=== PATIENT | male | born 1935 | race Caucasian/White ===

== ENCOUNTER 2020-03-18 11:29 | Emergency (ER) | payer MEDICARE, OTHER, SELFPAY ==
[2020-03-18 11:49] VITALS: BP 113/70; PULSE 89; RESP 18; TEMP 36.6; O2SAT 100; BMI 22.4
--- NOTE | 2020-03-18 11:56 | HMH.EDWNDL ---
ED Disposition Clinical Impression: Rash Disposition: Home, Self-Care Condition on Discharge: Good Instructions: DI for Laceration Repair, DI for Rash Prescriptions: hydrOXYzine HCL [Hydroxyzine HCl] 25 mg PO QID 10 Days #30 tab Transmission Status: Pending to [id number] methylPREDNISolone [Medrol 4mg tab] 4 mg PO DIRECTED #21 tab Transmission Status: Pending to [facility] Triamcinolone Acetonide 80 gm TP TID 10 Days #30 cream..g. Transmission Status: Pending to [id number] Referrals: Jake Joiner MD [Primary Care Provider] - - Critical Care Critical Care Time: No Attestation: On 03/18/20, the high probability of a clinically significant, sudden or life threatening deterioration of the following system(s) required my full and direct attention, intervention and personal management. The time I documented below is in addition to time spent performing reported procedures but includes the following listed in this critical care notation. Medical Decision Making - Medical Records Medical records reviewed: Yes: I reviewed the patient's medical records. - Alexx Inquiry Pt receiving controlled substance: No Wound/Laceration HPI - General Chief Complaint: Wound/Laceration Stated Complaint: Rash all over his body Time Seen by Provider: 03/18/20 11:56 Source of Information: Patient - History of Present Illness HPI narrative: A pleasant 84-year-old gentleman presents the emergency department with generalized rash from all over his trunk and extremities. He states this rash may have started his symptoms he started Bumex. He does state that he has a sulfa allergy. He recently discontinued that drug 2 days ago. However he still has a rash and is complaining of excessive pruritus. Patient denies any other acute symptoms. Patient denies any recent fever shakes or chills. Patient did have a valvular replacement 2 weeks ago at [facility].Patient denies any recent cough or shortness of breath, patient denies any sore throat or headache, patient denies any loss of taste or smell, patient denies any malaise or fatigue, patient denies any abdominal pain nausea vomiting or diarrhea. - Related Data Previous Rx's Medication Instructions Recorded cephALEXin [Keflex 500mg Cap] 1,000 mg PO BID 5 Days #20 cap 03/23/19 Triamcinolone Acetonide 80 gm TP TID 10 Days #30 cream..g. 03/18/20 hydrOXYzine HCL [Hydroxyzine HCl] 25 mg PO QID 10 Days #30 tab 03/18/20 methylPREDNISolone [Medrol 4mg 4 mg PO DIRECTED #21 tab 03/18/20 tab] Allergies Allergy/AdvReac Type Severity Reaction Status Date / Time ibuprofen Allergy Verified 03/23/19 08:13 Sulfa (Sulfonamide Allergy Verified 03/23/19 08:13 Antibiotics) [facility] History - Hepatitis A Screen Attestation statement:: This patient has been screened for Hepatitis A risk factors. I have reviewed the patient's past medical history: Yes Medical History: Denies:: Diabetes Mellitus Type 1, Diabetes Mellitus Type 2 - Social History Alcohol Intake: never Occupational Status: retired ROS Obtained: Yes All systems reviewed & no additional complaints - Constitutional Constitutional: Reports system reviewed and no additional complaints, except as docu - Eyes Eyes: Reports system reviewed and no additional complaints, except as docu - ENT Ears, Nose, Mouth, and Throat: Reports system reviewed and no additional complaints, except as docu - Cardiovascular Cardiovascular: Reports system reviewed and no additional complaints, except as docu - Respiratory Respiratory: Yes system reviewed and no additional complaints, except as docu - Gastrointestinal Gastrointestingal: Reports: system reviewed and no additional complaints, except as docu - Genitourinary Male Genitourinary: Reports system reviewed and no additional complaints, except as docu Female Genitourinary: Reports system reviewed and no additional com
[2020-03-18 12:02] VITALS: BP 106/66; PULSE 77; RESP 18; O2SAT 99
[2020-03-18 13:31] VITALS: BP 114/69; PULSE 86; RESP 18; O2SAT 100
[2020-03-18 13:36] VITALS: BP 114/74; PULSE 78; RESP 16; TEMP 36.6; O2SAT 98
== END 2020-03-18 13:38 | disposition home or self-care (01) ==
PROVIDERS: Emergency Provider Family Medicine; PCP Internal Medicine Adolescent Medicine
DX: R21 Rash and other nonspecific skin eruption (principal); Z88.2 Allergy status to sulfonamides; Z95.2 Presence of prosthetic heart valve
CPT/HCPCS: 96372; 96374; 96375; 99282; 99283

== ENCOUNTER → 2020-05-11 07:54 | Outpatient (CLI) | payer MEDICARE, OTHER, SELFPAY ==
[2020-05-11 13:54] LABS: Anion Gap 9.5 mEq/L (5-15); Blood Urea Nitrogen 22 mg/dl (9-20); Carbon Dioxide 30 mmol/L (22.0-30.0); Chloride 103 mmol/L (98-107); Estimated Glomerular Filt Rate 81 ml/min (>60); GFR (African American) 98 ML/MIN (>60); Glucose 94 mg/dl (74-100); Potassium 4.5 mmoL/L (3.5-5.1); Sodium 138 mmol/L (136-145)
[2020-05-11 14:00] LABS: NT Pro Brain Natriuretic Pep. 4580 pg/mL (0-450)
== END ==
PROVIDERS: Visit Provider Internal Medicine
DX: I50.30 Unspecified diastolic (congestive) heart failure (principal)
CPT/HCPCS: 36415; 80048; 83735; 83880

== ENCOUNTER → 2020-06-12 08:08 | Outpatient (CLI) | payer MEDICARE, OTHER, SELFPAY ==
[2020-06-12 14:18] LABS: Chloride 108 mmol/L (98-107); Potassium 4.2 mmoL/L (3.5-5.1); Sodium 142 mmol/L (136-145)
[2020-06-12 14:21] LABS: Anion Gap 11.2 mEq/L (5-15); Blood Urea Nitrogen 19 mg/dl (9-20); Calcium 8.9 mg/dl (8.4-10.2); Carbon Dioxide 27 mmol/L (22.0-30.0); Estimated Glomerular Filt Rate 71 ml/min (>60); GFR (African American) 86 ML/MIN (>60); Glucose 97 mg/dl (74-100)
[2020-06-12 14:28] LABS: NT Pro Brain Natriuretic Pep. 5450 pg/mL (0-450)
== END ==
PROVIDERS: Visit Provider Internal Medicine
DX: I50.20 Unspecified systolic (congestive) heart failure (principal)
CPT/HCPCS: 36415; 80048; 83735; 83880

== ENCOUNTER → 2020-09-04 07:05 | Outpatient (CLI) | payer MEDICARE, OTHER, SELFPAY ==
[2020-09-04 14:02] LABS: Chloride 107 mmol/L (98-107); Sodium 138 mmol/L (136-145)
[2020-09-04 14:04] LABS: Blood Urea Nitrogen 23 mg/dl (9-20)
[2020-09-04 14:05] LABS: Carbon Dioxide 25 mmol/L (22.0-30.0); Estimated Glomerular Filt Rate 71 ml/min (>60); GFR (African American) 86 ML/MIN (>60); Glucose 102 mg/dl (74-100)
[2020-09-04 14:13] LABS: NT Pro Brain Natriuretic Pep. 2070 pg/mL (0-450)
== END ==
PROVIDERS: Visit Provider Internal Medicine
DX: I50.20 Unspecified systolic (congestive) heart failure (principal); I50.30 Unspecified diastolic (congestive) heart failure
CPT/HCPCS: 36415; 80048; 83735; 83880

== ENCOUNTER → 2020-12-04 09:07 | Outpatient (CLI) | payer MEDICARE, OTHER, SELFPAY | PROVIDERS: PCP Internal Medicine Adolescent Medicine; Visit Provider Internal Medicine Adolescent Medicine | DX: Z20.822 Contact with and (suspected) exposure to COVID-19 (principal) | CPT/HCPCS: U0003 ==

== ENCOUNTER → 2021-07-15 08:18 | Outpatient (CLI) | payer MEDICARE, OTHER, SELFPAY ==
[2021-07-15 14:15] LABS: Chloride 105 mmol/L (98-107); Potassium 4.4 mmoL/L (3.5-5.1); Sodium 138 mmol/L (136-145)
[2021-07-15 14:18] LABS: Alanine Aminotransferase 10 U/L (12-78); Albumin Level 3.5 g/dl (3.5-5.0); Albumin/Globulin Ratio 1.2 (1.1-1.8); Alkaline Phosphatase 73 U/L (38-126); Anion Gap 8.4 mEq/L (5-15); Aspartate Amino Transferase 28 U/L (17-59); Bilirubin,Total 0.3 mg/dl (0.2-1.3); Blood Urea Nitrogen 23 mg/dl (9-20); Calcium 8.9 mg/dl (8.4-10.2); Carbon Dioxide 29 mmol/L (22.0-30.0); Estimated Glomerular Filt Rate 80 ml/min (>60); GFR (African American) 97 ML/MIN (>60); Globulin 2.9 g/dL (1.3-3.2); Glucose 113 mg/dl (74-100); Magnesium 1.9 mg/dl (1.6-2.3); Total Protein,Serum 6.4 g/dl (6.3-8.2)
[2021-07-15 14:25] LABS: NT Pro Brain Natriuretic Pep. 485 pg/mL (0-450)
== END ==
PROVIDERS: Visit Provider Internal Medicine
DX: I50.20 Unspecified systolic (congestive) heart failure (principal)
CPT/HCPCS: 36415; 80053; 83735; 83880

== ENCOUNTER 2023-06-24 10:01 | Observation (INO) | payer MEDICARE, SELFPAY ==
[2023-06-24] VITALS (10 sets, daily range): BP systolic 91–120; BP diastolic 50–75; PULSE 71–89; RESP 16–18; TEMP 36.3–36.5; O2SAT 97–100; BMI 25.1
--- NOTE | 2023-06-24 10:17 | XR_ITS ---
FINAL REPORT CLINICAL HISTORY: hand infx/cat bite/scratch posterior swelling COMPARISON: None FINDINGS: RIGHT HAND: 3 views of the right hand were obtained. There is no acute fracture or dislocation. Mild degenerative changes present. Visualized joint spaces are normally aligned. Dorsal soft tissue swelling of the hand is present. IMPRESSION: No acute bony abnormality with dorsal soft tissue swelling of the hand. Reviewed, Interpreted and Dictated by Cameron Noel III, MD Transcribed by Shiloh Calvin Authenticated and [facility]
--- NOTE | 2023-06-24 10:22 | HMH.EDGENADL ---
Discharge Plan Disposition Chief Complaint: Skin/Abscess/Foreign Body Prescriptions Prescriptions: No Action cephalexin 500 MG capsule 1,000 mg PO BID 5 Days Qty: 20 0RF methylprednisolone 4 MG tablet 4 mg PO DIRECTED Qty: 21 0RF Rx Instructions: Take as directed on package instructions triamcinolone acetonide 15 GM cream 80 gm TP TID 10 Days Qty: 30 0RF Rx Instructions: Triamcinolone cream 0.5% hydroxyzine HCl 25 MG tablet 25 mg PO QID 10 Days Qty: 30 2RF Rx Instructions: For itching Referrals Follow up/Referrals: Fatou Armenta [Primary Care Provider] - See instructions Clinical Impressions Clinical Impression: Cellulitis of hand, Cellulitis of forearm, Cat bite, Cat scratch Instructions Patient Instructions: DI for Skin Abscess Discharge ED Provider: Coleen Pratt General Adult HPI General Chief complaint: Skin/Abscess/Foreign Body Stated complaint: swelling R hand Time Seen by Provider: 06/24/23 10:04 History of Present Illness HPI narrative: Patient is a 87-year-old male here with right hand swelling and erythema and pain. States that within the last week he believes that he most likely was bitten and scratched by his cat on the dorsal aspect of his right hand. Over the last few days he has had swelling erythema pain extending up the dorsal aspect of his right hand and arm. His states he had a temperature of 101 orally last night and he had some altered mental status yesterday evening which is since resolved. He has not had any antipyretics today. No fevers or chills today. No other symptoms at the moment. Related Data Previous Rx's Medication Instructions Recorded cephalexin 500 mg capsule 1,000 mg PO BID 5 days #20 caps 03/23/19 hydroxyzine HCl 25 mg tablet 25 mg PO QID 10 days #30 tabs 03/18/20 methylprednisolone 4 mg tablet 4 mg PO DIRECTED #21 tabs 03/18/20 triamcinolone acetonide 0.025 % 80 gm TP TID 10 days ##30 03/18/20 topical cream Allergies Allergy/AdvReac Type Severity Reaction Status Date / Time ibuprofen Allergy Verified 03/23/19 08:13 Sulfa (Sulfonamide Allergy Verified 03/23/19 08:13 Antibiotics) [facility] Disclaimer: The information contained in this section may have been updated after the patient was seen, as this information can be updated by other users. Social History Smoking Status: Former smoker alcohol intake: never current occupational status: other Travel in the last 8 weeks: None ROS Obtained: Yes All systems reviewed & no additional complaints except as documented Physical Exam General General appearance: alert Respiratory Respiratory exam: Present normal lung sounds bilaterally Cardiovascular Cardiovascular exam: Present regular rate Extremities Exam Extremities exam: Present other (The dorsal aspect of the right hand there is erythema swelling and tenderness no fluctuance there is some streaky erythema going up the dorsal aspect of the medial component of the right forearm patient is full range of motion no volar component or involvement) Neurological Exam Neurological exam: Present alert and oriented X3 Medical Decision Making Alexx Inquiry Pt receiving controlled substance: No Vital Signs: 06/24/23 10:02 Temperature 97.3 F L Temperature Source Oral Pulse Rate [Left Radial] 82 Respiratory Rate 16 Blood Pressure [Right Arm] 102/55 L Blood Pressure Mean [Right Arm] 70 Blood Pressure Source [Right Arm] Automatic Cuff Blood Pressure Position [Right Arm] Sitting 02 Sat by Pulse Oximetry 98 Oxygen Delivery Method Room Air Lab Data Lab results reviewed: Yes I reviewed the patient's lab results. Lab Results 06/24/23 10:45: WBC 15.6 H, RBC 3.90 L, Hgb 13.0 L, Hct 38.9 L, MCV 99.6 H, MCH 33.3 H, MCHC 33.4, RDW 13.1, Plt Count 215, MPV 7.6, Neut % (Auto) 80.0, Lymph % (Auto) 9.2 L, [place] % (Auto) 9.3, Eos % (Auto) 0.9, Baso % (Auto) 0.5, Neut # (Auto) 12.5 H
--- NOTE | 2023-06-24 10:48 | PC.NURSE ---
xray at bs
[2023-06-24 11:01] LABS: Basophils # 0.1 K/mm3 (0-0.2); Basophils % 0.5 % (0.1-2.0); Eosinophils # 0.1 K/mm3 (0.0-0.4); Eosinophils % 0.9 % (0.1-12.0); Hematocrit 38.9 % (42.0-52.0); Lymphocytes # 1.4 K/mm3 (0.7-4.5); Lymphocytes % 9.2 % (10-50); Mean Corpuscular HGB Conc 33.4 g/dL (31.8-35.4); Mean Corpuscular Hemoglobin 33.3 pg (27.0-31.2); Mean Corpuscular Volume 99.6 fl (80-94); Mean Platelet Volume 7.6 fl (7.4-10.4); Monocytes # 1.5 K/mm3 (0.1-1.0); Monocytes % 9.3 % (1.7-9.3); Neutrophils # 12.5 K/mm3 (1.8-7.8); Platelet Count 215 K/mm3 (142-424); Red Cell Distribution Width 13.1 % (11.5-17.5); White Blood Count 15.6 K/mm3 (4.8-10.8)
[2023-06-24 11:06] LABS: Alanine Aminotransferase 19 U/L (12-78); Albumin Level 3.9 g/dl (3.5-5.0); Albumin/Globulin Ratio 1.1 (1.1-1.8); Alkaline Phosphatase 63 U/L (38-126); Aspartate Amino Transferase 35 U/L (17-59); Bilirubin,Total 0.7 mg/dl (0.2-1.3); Blood Urea Nitrogen 22 mg/dl (9-20); Calcium 8.8 mg/dl (8.4-10.2); Carbon Dioxide 27 mmol/L (22.0-30.0); Chloride 102 mmol/L (98-107); Creatinine Clearance Estimated 40 mL/min (50-200); Estimated Glomerular Filt Rate 52 ml/min (>60); GFR (African American) 63 ML/MIN (>60); Globulin 3.6 g/dL (1.3-3.2); Glucose 101 mg/dl (74-100); Sodium 136 mmol/L (136-145); Total Protein,Serum 7.5 g/dl (6.3-8.2)
[2023-06-24 11:10] LABS: MANUAL DIFFERENTIAL MANUAL DIFFERENTIAL (MANUAL DIFF)
--- NOTE | 2023-06-24 11:43 | PC.NURSE ---
CARE MANAGEMENT NOTIFIED OF ADMISSION
--- NOTE | 2023-06-24 11:46 | EXP.PHA.CONS ---
Pharmacy Consult Date: 06/24/23 Time: 11:46 Referring provider: DR. CRUZ Reason for Consult:: VANCOMYCIN DOSING Allergies Allergy/AdvReac Type Severity Reaction Status Date / Time ibuprofen Allergy Verified 03/23/19 08:13 Sulfa (Sulfonamide Allergy Verified 03/23/19 08:13 Antibiotics) Home Medications Medication Instructions Recorded Confirmed Type cephalexin 500 mg capsule 1,000 mg PO BID 5 days #20 caps 03/23/19 Rx hydroxyzine HCl 25 mg tablet 25 mg PO QID 10 days #30 tabs 03/18/20 Rx methylprednisolone 4 mg tablet 4 mg PO DIRECTED #21 tabs 03/18/20 Rx triamcinolone acetonide 0.025 % 80 gm TP TID 10 days ##30 03/18/20 Rx topical cream New Prescriptions to Start Prescriptions: Height: 1.65 m Weight: 68.492 kg Laboratory Results:: Laboratory Results - last 24 hr 06/24/23 10:45: WBC 15.6 H, RBC 3.90 L, Hgb 13.0 L, Hct 38.9 L, MCV 99.6 H, MCH 33.3 H, MCHC 33.4, RDW 13.1, Plt Count 215, MPV 7.6, Neut % (Auto) 80.0, Lymph % (Auto) 9.2 L, [place] % (Auto) 9.3, Eos % (Auto) 0.9, Baso % (Auto) 0.5, Neut # (Auto) 12.5 H, Lymph # (Auto) 1.4, [place] # (Auto) 1.5 H, Eos # (Auto) 0.1, Baso # (Auto) 0.1, Sodium 136, Potassium 4.0, Chloride 102, Carbon Dioxide 27, Anion Gap 11.0, BUN 22 H, Creatinine 1.30 H, Estimated Creat Clear 40, Estimated GFR 52 L, Est GFR ( Amer) 63, Glucose 101 H, Calcium 8.8, Total Bilirubin 0.7, AST 35, ALT 19, Alkaline Phosphatase 63, Total Protein 7.5, Albumin 3.9, Globulin 3.6 H, Albumin/Globulin Ratio 1.1 Assessment and Plan Assessment and plan all Dx Assessment and Plan for all problems:: Pharmacokinetic dosing service Objective: Patient: Floor: Age: 87 yo Serum creatinine: 1.3 mg/dL Height: 65.0 Inches Weight (kg): 68.5 Assessment: IBW (kg): 61.50 Dosing wt(kg): 68.5 Estimated Creatinine clearance (ml/min): 35.5 CRCL method: Cockcroft and Gault using ibw(default). Drug selected: Vancomycin Loading dose (mg): 0 Vd (liters): 54.8 (factor used: 0.8 L/kg) Paramjit (hr-1): 0.034 Half life (hrs): 20.39 Recommended dose: 1000 mg Interval: 24 hrs Infusion time (hrs): 2.0 Predicted peak (mcg/mL): 31.6 Predicted trough (mcg/mL): 14.96 Total body weight is being used for vancomycin dosing. Recommendations: Give Vancomycin 1000 mg q 24 hrs with an expected Cpeak of 31.6 mcg/ml and an expected Ctrough of 14.96 mcg/mL. ----Vanco only - ignore for aminoglycosides----- CLvanco= 1.86 L/hr AUC 0-24 /MILADIS Data: MILADIS 0.5 mcg/mL: AUC/MILADIS: 1075.3 MILADIS 1.0 mcg/mL: AUC/MILADIS: 537.6 --------- MILADIS 1.5 mcg/mL: AUC/MILADIS: 358.4 MILADIS 2.0 mcg/mL: AUC/MILADIS: 268.8
--- NOTE | 2023-06-24 12:01 | EXP.HP ---
History of Present Illness *Admission Date: 06/24/23 *Reason for visit:: Chief complaint: Right hand erythema *History of present illness: This is an 87-year-old male that presents to [facility] emergency department with concerns of crescendo right hand erythema since Thursday. He is accompanied by his Vanessa blanton 55 years and she assists with the history. He reports that he was in his usual state of health when his vaccinated cat accidentally scratched the dorsum of his right hand. He irrigated his hand with water, washed it and placed hydrogen peroxide. His reports last night a subjective fever with some confusion. This morning his hand continued to be erythematous, edematous and tender dorsally. They identified streaking up to his mid forearm. He denies palpating axillary or neck adenopathy. He reports taking [id number] medication for his fever. In the ED his CBC identifies a leukocytoses and his creatinine is elevated 1.3 (baseline 0.9). His lactic acid is negative and a hand x-ray identifies no foreign body or gas. Blood cultures were acquired and he was started on broad-spectrum IV antibiotic therapy. 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 History of appendectomy Family History (Updated 06/24/23 @ 14:06 by Tani Cadena MD) Mother Coronary artery disease Heart attack Father Dementia Other Family history of hypertension Social History (Updated 06/24/23 @ 13:14 by Daphne Muro RN) Smoking Status: Former smoker alcohol intake: never current occupational status: retired and other Travel in the last 8 weeks: None Review of Systems Review of Systems Review of systems:: pertinent systems reviewed and negative unless documented below Constitutional Constitutional: Reports chills and Reports fever(s) *Cardiovascular Cardiovascular: Denies chest pain, Denies chest pain at rest, Denies dyspnea, Denies dyspnea on exertion, Denies palpitations and Denies rapid heart rate *Respiratory Respiratory: Denies cough, Denies dyspnea, Denies dyspnea on exertion and Denies pain on inspiration *Gastrointestinal Gastrointestinal: Denies loose stools, Denies nausea and Denies vomiting *Musculoskeletal Musculoskeletal: Denies arthralgias and Denies joint swelling Integumentary/Breasts Skin/Breast: Reports change in pigmentation, Reports erythema, Denies rash and Reports wounds Endocrine Endocrine: Denies palpitations Meds Home Medications and Allergies Home Medications Medication Instructions Recorded Confirmed Type ascorbic acid (vitamin C) 500 mg 500 mg PO HS Supplement 06/24/23 06/24/23 History tablet (Vitamin C) aspirin 81 mg tablet 81 mg PO DAILY HEART HEALTH 06/24/23 06/24/23 History cholecalciferol (vitamin D3) 10 10 mcg PO HS Supplement 06/24/23 06/24/23 History mcg (400 unit) capsule (Vitamin D3) famotidine 20 mg tablet (Pepcid) 20 mg PO DAILY GERD 06/24/23 06/24/23 History loratadine 10 mg tablet (Claritin) 10 mg PO DAILY ALLERGIES 06/24/23 06/24/23 History metoprolol succinate 50 mg 100 mg PO DAILY High Blood Pressure 06/24/23 06/24/23 History tablet,extended release 24 hr multivitamin 1 tab PO DAILY Supplement 06/24/23 06/24/23 History sacubitril 24 mg-valsartan 26 mg 0.5 tab PO BID Heart Failure 06/24/23 06/24/23 History tablet (Entresto) spironolactone 25 mg tablet 12.5 mg PO DAILY Fluid 06/24/23 06/24/23 History New Prescriptions to Start Prescriptions: Allergies Allergy/AdvReac Type Severity Reaction Status Date / Time ibuprofen Allergy Verified 03/23/19 08:13 Sulfa (Sulfonamide Allergy Verified 03/23/19
--- NOTE | 2023-06-24 12:09 | PC.NURSE ---
report called to Daphne MATHEW
[2023-06-24 12:15] LABS: Lymphocytes % 16 % (10-50); Monocytes % 6 % (2-9); Neutrophils % 78 % (42-76); Platelet Estimate Normal; RBC Morphology Normal; Total Cells Counted 100
--- NOTE | 2023-06-24 12:16 | PC.NURSE ---
arrived to floor by w/c from ED
--- NOTE | 2023-06-24 12:24 | P.CONPHA_ITS ---
Pharmacy Intervention Comments: MEDICATION RECONCILIATION COMPLETED ON PATIENT USING EXTERNAL FILL HISTORY FROM PHARMACY AND PHONE CALL TO [facility]. -CHRISTIAN SANTOS, CHRISTOPHERD
--- NOTE | 2023-06-24 12:24 | HMH.PHAINT1 ---
Pharmacy Intervention Comments: MEDICATION RECONCILIATION COMPLETED ON PATIENT USING EXTERNAL FILL HISTORY FROM PHARMACY AND PHONE CALL TO [facility]. -CHRISTIAN SANTOS, CHRISTOPHERD
[2023-06-24 12:38] LABS: Procalcitonin 0.098 ng/mL (0.0-2.0)
[2023-06-24 14:13] LABS: Erythrocyte Sedimentation Rate 31 mm/hr (0-20)
--- NOTE | 2023-06-24 17:49 | PC.NURSE ---
Pt A&O x4. Visiting with son. Denies any discomfort to (R) hand. It remains swollen and erythemic. See pic on chart. Medications administered per mar. Call light within reach.
[2023-06-24 18:16] LABS: POC Glucose,Bedside 94 (70-110)
[2023-06-24 22:04] LABS: POC Glucose,Bedside 88 (70-110)
[2023-06-25] VITALS: BP 127/54; PULSE 97; RESP 20; TEMP 37.1; O2SAT 99
[2023-06-25 04:00] VITALS: BP 98/48; PULSE 90; RESP 20; TEMP 37.1; O2SAT 95; BMI 25.0
[2023-06-25 05:01] LABS: C-Reactive Protein 73.9 mg/L (0-4)
[2023-06-25 06:16] LABS: Basophils # 0.1 K/mm3 (0-0.2); Basophils % 0.9 % (0.1-2.0); Eosinophils # 0.2 K/mm3 (0.0-0.4); Eosinophils % 2.5 % (0.1-12.0); Hematocrit 33.4 % (42.0-52.0); Lymphocytes # 1.6 K/mm3 (0.7-4.5); Lymphocytes % 18.2 % (10-50); Mean Corpuscular HGB Conc 33.4 g/dL (31.8-35.4); Mean Corpuscular Hemoglobin 32.8 pg (27.0-31.2); Mean Corpuscular Volume 98.4 fl (80-94); Mean Platelet Volume 7.6 fl (7.4-10.4); Monocytes # 0.9 K/mm3 (0.1-1.0); Monocytes % 10.8 % (1.7-9.3); Neutrophils # 5.8 K/mm3 (1.8-7.8); Neutrophils % 67.5 % (37.0-80.0); Platelet Count 193 K/mm3 (142-424); Red Blood Count 3.39 M/mm3 (4.60-6.20); Red Cell Distribution Width 12.9 % (11.5-17.5); White Blood Count 8.6 K/mm3 (4.8-10.8)
[2023-06-25 06:19] LABS: Hemoglobin 11.1 g/dL (14.1-18.0)
[2023-06-25 06:21] LABS: Chloride 109 mmol/L (98-107); Sodium 137 mmol/L (136-145)
[2023-06-25 06:22] LABS: Potassium 3.8 mmoL/L (3.5-5.1)
[2023-06-25 06:25] LABS: Anion Gap 8.8 mEq/L (5-15); Blood Urea Nitrogen 18 mg/dl (9-20); Calcium 7.7 mg/dl (8.4-10.2); Carbon Dioxide 23 mmol/L (22.0-30.0); Creatinine Clearance Estimated 47 mL/min (50-200); Estimated Glomerular Filt Rate 63 ml/min (>60); GFR (African American) 77 ML/MIN (>60); Glucose 82 mg/dl (74-100)
--- NOTE | 2023-06-25 07:43 | PC.NURSE ---
rounded on pt, updated pts whiteboard, no needs at this time
[2023-06-25 08:00] VITALS: BP 96/53; PULSE 87; RESP 19; TEMP 36.4; O2SAT 99
[2023-06-25 08:07] LABS: Vitamin B12 318 pg/mL (239-931)
--- NOTE | 2023-06-25 09:08 | EXP.DC.SUM ---
General Admission date:: 06/24/23 Discharge date: 06/25/23 HPI HPI HPI: This is an 87-year-old male that presents to [facility] emergency department with concerns of crescendo right hand erythema since Thursday. He is accompanied by his Vanessa blanton 55 years and she assists with the history. He reports that he was in his usual state of health when his vaccinated cat accidentally scratched the dorsum of his right hand. He irrigated his hand with water, washed it and placed hydrogen peroxide. His reports last night a subjective fever with some confusion. This morning his hand continued to be erythematous, edematous and tender dorsally. They identified streaking up to his mid forearm. He denies palpating axillary or neck adenopathy. He reports taking [id number] medication for his fever. In the ED his CBC identifies a leukocytoses and his creatinine is elevated 1.3 (baseline 0.9). His lactic acid is negative and a hand x-ray identifies no foreign body or gas. Blood cultures were acquired and he was started on broad-spectrum IV antibiotic therapy. Hospital Course Hospital Course Hospital Course: The patient was admitted to the medical surgical floor with IV fluid resuscitation. Blood cultures were acquired that identified no growth to date. Labs and inflammatory markers were trended and identified resolved leukocytoses. His creatinine improved with fluid resuscitation. He tolerated his IV antibiotic therapy and noted improved erythema of his right hand as well as improved edema. With his improvement and inquired about discharge home. We recommended discharge home on p.o. antibiotics with close PCP follow-up. We have recommended a 1 week follow-up with his PCP to discuss his right hand cat scratch, edema and erythema. I spent 35 minutes in [id number] time with the patient and nursing staff concerning the discharge process. We discussed the admitting diagnoses and hospital course. We discussed identified improvement and the patient's desire to be discharged. We reviewed inpatient studies and imaging. The patient voiced understanding on the importance of follow-up with his primary care provider. The patient plans to be compliant with the medication regimen prescribed and follow-up appointments. He understands that he can return to the emergency department with any sudden changes or concerns. Exam Data for Last 24 hours Vital signs and Labs for Last 24 Hours: Temp Pulse Resp BP Pulse Ox O2 Del Method 97.6 F 87 19 96/53 L 99 Room Air 06/25/23 08:00 06/25/23 08:00 06/25/23 08:00 06/25/23 08:00 06/25/23 08:00 06/25/23 08:00 Laboratory Results - last 24 hr 06/24/23 10:45: WBC 15.6 H, RBC 3.90 L, Hgb 13.0 L, Hct 38.9 L, MCV 99.6 H, MCH 33.3 H, MCHC 33.4, RDW 13.1, Plt Count 215, MPV 7.6, Neut % (Auto) 80.0, Lymph % (Auto) 9.2 L, [place] % (Auto) 9.3, Eos % (Auto) 0.9, Baso % (Auto) 0.5, Neut # (Auto) 12.5 H, Lymph # (Auto) 1.4, [place] # (Auto) 1.5 H, Eos # (Auto) 0.1, Baso # (Auto) 0.1, Total Counted 100, Neutrophils % (Manual) 78 H, Lymphocytes % (Manual) 16, Monocytes % (Manual) 6, Platelet Estimate Normal, RBC Morphology Normal, ESR 31 H, Sodium 136, Potassium 4.0, Chloride 102, Carbon Dioxide 27, Anion Gap 11.0, BUN 22 H, Creatinine 1.30 H, Estimated Creat Clear 40, Estimated GFR 52 L, Est GFR ( Amer) 63, Glucose 101 H, Lactate 1.0, Calcium 8.8, Total Bilirubin 0.7, AST 35, ALT 19, Alkaline Phosphatase 63, C-Reactive Protein 73.9 H, Total Protein 7.5, Albumin 3.9, Globulin 3.6 H, Albumin/Globulin Ratio 1.1, Procalcitonin 0.098 06/24/23 17:58: POC Glucose 94 06/24/23 21:57: POC Glucose 88 06/25/23 05:49: WBC 8.6 D, RBC 3.39 L, Hgb 11.1 L D, Hct 33.4 L, MCV 98.4 H, MCH 32.8 H, MCHC 33.4, RDW 12.9, Plt Count 193, MPV 7.6, Neut % (Auto) 67.5, Lymph % (Auto) 18.2, [place] % (Auto) 10.8 H, Eos % (Auto) 2.5, Baso % (Auto) 0.9, Neut # (Auto) 5.8, Lymph # (Auto) 1.6, [place] # (Auto) 0.9, Eos # (Auto) 0.2, Baso #
[2023-06-25 09:33] VITALS: PULSE 77; RESP 18
--- NOTE | 2023-06-30 13:39 | CARE MANAGER ---
Contacted patient related to hospital discharge. He states he is feeling much better. 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 Denies questions or concerns. QUINCY Ortega
== END 2023-06-25 10:40 | disposition home or self-care (01) ==
LOC: ER 11:49 → 2ND 11:54
PROVIDERS: Admitting Provider Family Medicine; Emergency Provider Student in an Organized Health Care Education/Training Program; PCP Nurse Practitioner Family; Visit Provider Family Medicine
DX: L03.113 Cellulitis of right upper limb (principal); W55.03XA Scratched by cat, initial encounter; N17.9 Acute kidney failure, unspecified; I50.32 Chronic diastolic (congestive) heart failure; I11.0 Hypertensive heart disease with heart failure; Z79.899 Other long term (current) drug therapy
CPT/HCPCS: 36415; 73130; 80048; 80053; 82607; 82962; 83605; 84145; 85007; 85025; 85651; 86140; 87040; 87070; 87205; 99285; G0378; J0456; J3370

== ENCOUNTER 2024-04-28 08:51 | Emergency (ER) | payer MEDICARE, SELFPAY ==
[2024-04-28] VITALS (8 sets, daily range): BP systolic 106–127; BP diastolic 56–75; PULSE 57–95; RESP 12–20; TEMP 36.7; O2SAT 96–99; BMI 23.4
--- NOTE | 2024-04-28 09:06 | XR_ITS ---
FINAL REPORT CLINICAL HISTORY: weakness COMPARISON: 04/12/2024 FINDINGS: SINGLE-VIEW CHEST There is cardiomegaly. Left subclavian ICD is present. The mediastinum is normal. Note is made of moderate scarring. There are mild bibasilar opacities, favor atelectasis over pneumonia. There is no pneumothorax. IMPRESSION: Favor bibasilar atelectasis over pneumonia. Reviewed, Interpreted and Dictated by Cameron Noel III, MD Transcribed by Angie Cedillo Authenticated and [facility]
--- NOTE | 2024-04-28 09:08 | ECG_ITS ---
APPROVED REPORT Exam: Resting ECG HR:94 bpm ECG Measurements Heart Rate 94 AXES UT 198 P 20 QRSd 153 QRS 91 QT 373 T 25 QTc 425 Conclusion SINUS RHYTHM RIGHT BUNDLE BRANCH BLOCK [120+ ms QRS DURATION, UPRIGHT V1, 40+ ms S IN I/aVL/V4/V5/V6] ABNORMAL ECG Electronically signed by : DANISHA OWEN, 04/28/2024 15:50:34
--- NOTE | 2024-04-28 09:09 | ED_ITS ---
Discharge Plan Disposition Patient Disposition: Home, Self-Care Prescriptions Prescriptions: No Action metoprolol succinate 50 mg tablet extended release 24 hr 100 mg PO DAILY spironolactone 25 mg tablet 12.5 mg PO DAILY Entresto 24-26 mg tablet 0.5 tab PO BID multivitamin Tablet 1 tab PO DAILY ascorbic acid (vitamin C) [Vitamin C] 500 mg Tablet 500 mg PO HS aspirin 81 mg Tablet 81 mg PO DAILY loratadine [Claritin] 10 mg Tablet 10 mg PO DAILY cholecalciferol (vitamin D3) [Vitamin D3] 10 mcg (400 unit) Capsule 10 mcg PO HS famotidine [Pepcid] 20 mg Tablet 20 mg PO DAILY amoxicillin-pot clavulanate 875-125 mg tablet 1 tab PO BID Qty: 14 0RF azithromycin 250 mg tablet 250 mg PO DAILY 4 Days Qty: 4 0RF Referrals Follow up/Referrals: Fatou Armenta [Primary Care Provider] - See instructions Edwardo Kirk MD [Staff Physician] - See instructions (Sterile pyuria with RBCs, diffuse, symmetric bladder wall thickening on CT) Activity Restrictions/Add. Instructions Additional Instructions/Restrictions: You were evaluated in the ER and are appropriate for discharge at this time. Continue taking home medications as previously prescribed. Please increase the amount of water and clear liquids that you are drinking. Continue using boost shakes and other nutritional supplements as you regain weight. Follow-up with your primary care physician in a few days. Follow-up with your electrotype servicer intermittent sinus arrhythmia. Also follow-up with urology to reevaluate your bladder, call them for an appointment. Return to the ER with new, worsening, or otherwise concerning symptoms Clinical Impressions Clinical Impression: Generalized weakness, Pyuria Print Language Print Language: Albanian Discharge ED Provider: Shireen Ledesma General Adult HPI General Chief complaint: Weakness Stated complaint: weakness, low bp Time Seen by Provider: 04/28/24 08:53 Mode of Arrival: Ambulatory Source of Information: Patient and Spouse Limitations: No Limitations Description of Symptoms (Recalled from ER Triage Doc. by RN): states that the patient has lost 10 pounds in two weeks and has been weak. States that his blood pressures have been low at home. History of Present Illness HPI narrative: 88-year-old male presents to the ER at the direction of his was concerned patient has been diffusely weak, poor appetite, losing weight. Patient was started on a new medication, trazodone. He had a diffuse rash and ended up requiring steroids. The rash is improving, however since the time of these changes in medications, patient has had reportedly decreased appetite and his weight fell from 151 pounds to 141 pounds. Patient reports to me that his appetite is improving but is adamant that it is not. Patient did eat breakfast this morning. Reportedly has been taking the patient back and forth to the primary care physician frequently over the last 2 weeks because she has been worried about low blood pressures on home wrist and bicep cuff as well as heart rates around 100-110. She reports that when they get to the doctor's office his heart rate and blood pressure are always fine. On discussion, they are using 2 different devices to check his blood pressures and has been worried about his bottom number, she cannot recall the top numbers. Patient states he is feeling improved compared to what he did over the last 2 weeks, his appetite is improving, and he believes his weakness is improving. He does not have other concerns at this time. Review of systems is negative for fever, chills, chest pain, shortness of breath, abdominal pain, vomiting, diarrhea, dysuria, hematuria. Daughter presented to bedside later in the encounter, she stated patient did recently have a GI illness, she also reports that patient is not great about drinking clear liquids and previously has gotten IV fluids for mild dehydration. Related Data Home Medications ?Medication ?Instructions ?Recorded ?Confirmed ascorbic acid (vitamin C) 500 mg 500 mg PO HS Supplement 06/24/23 06/24/23 tablet (Vitamin C) aspirin 81 mg tablet 81 mg PO DAILY HEART HEALTH 06/24/23 06/24/23 cholecalciferol (vitamin D3) 10 10 mcg PO HS Supplement 06/24/23 06/24/23 mcg (400 unit) capsule (Vitamin D3) famotidine 20 mg tablet (Pepcid) 20 mg PO DAILY GERD 06/24/23 06/24/23 loratadine 10 mg tablet (Claritin) 10 mg PO DAILY ALLERGIES 06/24/23 06/24/23 metoprolol succinate 50 mg 100 mg PO DAILY High Blood Pressure 06/24/23 06/24/23 tablet,extended release 24 hr multivitamin 1 tab PO DAILY Supplement 06/24/23 06/24/23 sacubitril 24 mg-valsartan 26 mg 0.5 tab PO BID Heart Failure 06/24/23 06/24/23 tablet (Entresto) spironolactone 25 mg tablet 12.5 mg PO DAILY Fluid 06/24/23 06/24/23 Previous Rx's ?Medication ?Instructions ?Recorded amoxicillin 875 mg-potassium 1 tab PO BID #14 tabs 06/25/23 clavulanate 125 mg tablet azithromycin 250 mg tablet 250 mg PO DAILY 4 days #4 tabs 06/25/23 Allergies Allergy/AdvReac Type Severity Reaction Status Date / Time ibuprofen Allergy Verified 04/28/24 09:10 Sulfa (Sulfonamide Allergy Verified 04/28/24 09:10 Antibiotics) [facility] Disclaimer: The information contained in this section may have been updated after the patient was seen, as this information can be updated by other users. 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 History of appendectomy Amputation finger Family History (Updated 06/24/23 @ 14:06 by Tani Cadena MD) Mother Coronary artery disease Heart attack Father Dementia Other Family history of hypertension Social History (Updated 06/24/23 @ 13:14 by Daphne Muro RN) Smoking Status: Never smoker alcohol intake: never current occupational status: retired and other Travel in the last 8 weeks: None ROS Obtained: Yes All systems reviewed & no additional complaints except as documented Per HPI Physical Exam General General appearance: alert and in no apparent distress Head Head exam: atraumatic and normocephalic Eye Eye exam: Present PERRL and EOMI ENT ENT exam: Present mucous membranes moist Neck Neck exam: Present normal inspection and full ROM Chest Chest inspection: Present symmetric chest wall rise Respiratory Respiratory exam: Present normal lung sounds bilaterally; Absent respiratory distress, wheezes or stridor Cardiovascular Cardiovascular exam: Present regular rate and normal rhythm Abdominal Exam Abdominal exam: Present soft; Absent distention or tenderness Extremities Exam Extremities exam: Present full ROM; Absent tenderness or edema Neurological Exam Neurological exam: Present alert, oriented X3, CN II-XII intact and normal gait; Absent motor sensory deficit (5/5 strength in all extremities, no sensory deficits) Psychiatric Psychiatric exam: Present normal affect and normal mood Skin Skin exam: Present warm and dry Medical Decision Making Medical Records Medical records reviewed: Yes I reviewed the patient's medical records. MR Comment: Labs from patient's visit in 2022 were reviewed demonstrating mild anemia, mild hypocalcemia Alexx Inquiry Pt receiving controlled substance: No Vital Signs: 04/28/24 08:52 04/28/24 09:00 04/28/24 09:23 Temperature 98.1 F Temperature Source Oral Pulse Rate 95 H 82 Pulse Rate [Radial] 94 H Respiratory Rate 16 18 Blood Pressure 106/66 L 122/65 Blood Pressure [Right Arm] 118/65 Blood Pressure Mean [Right Arm] 82 Blood Pressure Source [Right Arm] Automatic Cuff Blood Pressure Position [Right Arm] Sitting 02 Sat by Pulse Oximetry 98 99 97 Oxygen Delivery Method Room Air Room Air Room Air 04/28/24 10:00 04/28/24 10:37 04/28/24 11:00 Temperature Temperature Source Pulse Rate 90 92 H 71 Pulse Rate [Radial] Respiratory Rate 20 17 12 Blood Pressure 118/75 127/74 122/56 L Blood Pressure [Right Arm] Blood Pressure Mean [Right Arm] Blood Pressure Source [Right Arm] Blood Pressure Position [Right Arm] 02 Sat by Pulse Oximetry 98 98 96 Oxygen Delivery Method Room Air Room Air Room Air Lab Data Lab Results 04/28/24 09:05: WBC 12.3 H, RBC 3.98 L, Hgb 12.9 L, Hct 41.3 L, MCV 103.6 H, MCH 32.3 H, MCHC 31.2 L, RDW 14.1, Plt Count 265, MPV 7.6, Neut % (Auto) 72.7, Lymph % (Auto) 12.9, [place] % (Auto) 11.3 H, Eos % (Auto) 2.1, Baso % (Auto) 1.0, Neut # (Auto) 9.0 H, Lymph # (Auto) 1.6, [place] # (Auto) 1.4 H, Eos # (Auto) 0.3, Baso # (Auto) 0.1, PT 10.9, INR 0.97, Sodium 136, Potassium 4.5, Chloride 106, Carbon Dioxide 28, Anion Gap 6.5, BUN 39 H, Creatinine 1.40 H, Estimated Creat Clear 34, Estimated GFR 48 L, Est GFR ( Amer) 58 L, Glucose 78, Calcium 8.4, Magnesium 1.9, Total Bilirubin 0.5, AST 31, ALT 27, Alkaline Phosphatase 47, Troponin I < 0.01, Total Protein 6.5, Albumin 3.5, Globulin 3.0, Albumin/Globulin Ratio 1.2 04/28/24 09:12: Urine Color Yellow, Urine Appearance Clear, Urine pH 7.0, Ur Specific [place] 1.020, Urine Protein Trace, Urine Glucose (UA) Negative, Urine Ketones Negative, Urine Blood Negative, Urine Nitrate Negative, Urine Bilirubin Negative, Urine Urobilinogen 0.2, Ur Leukocyte Esterase 1+ A, Urine RBC 3-5, Urine WBC 20-50, Ur Squamous Epith Cells None, Urine Bacteria None 04/28/24 09:05 04/28/24 09:05 Orders (Tests/Meds): ED MEDICATIONS Discontinued Medications Generic Name Dose Route Start Last Admin Trade Name Morena PRN Reason Stop Dose Admin Lactated Ringer's 1,000 mls @ 999 mls/hr 04/28/24 09:47 04/28/24 09:52 Lactated Ringer's 1000 Ml Bag IV 04/28/24 10:47 999 mls/hr .Q1H1M ONE Administration Iopamidol 75 ml 04/28/24 10:24 04/28/24 10:25 Iopamidol-370 (76%);100ml Bottle IV 04/28/24 10:25 75 ml ONCE ONE Administration Sodium Chloride 10 ml 04/28/24 10:24 04/28/24 10:25 Sodium Chloride 0.9% 10ml Syr (Rad Only) IV 04/28/24 10:25 10 ml ONCE ONE Administration ORDERS Category Date Time Status CT abdomen pelvis w con Stat Cat Scan 04/28/24 10:09 Completed CXR --portable [XR chest portable] Stat Exams 04/28/24 09:06 Completed CBC w/Auto Diff [Complete Blood Count Auto Diff] Stat Lab 04/28/24 09:05 Completed CMP [Comprehensive Metabolic Panel] Stat Lab 04/28/24 09:05 Completed Magnesium Stat Lab 04/28/24 09:05 Completed PT INR [Prothrombin Time INR] Stat Lab 04/28/24 09:05 Completed Trop I [Troponin I] Stat Lab 04/28/24 09:05 Completed Troponin I Q3H Lab 04/28/24 12:15 Ordered Troponin I Q3H Lab 04/28/24 15:15 Ordered Urinalysis and Microscopic Stat Lab 04/28/24 09:12 Completed Urine Culture Stat Micro 04/28/24 09:12 Received ECG Request Stat Y 04/28/24 09:06 Ordered Medical Decision Narrative: In summary, this 88-year-old male presents to the emergency department today with his who is concerned about diffuse weakness, low blood pressures, weight loss. On initial evaluation patient is hemodynamically stable, afebrile, normotensive, GCS 15, no focal neurologic deficits, well-appearing on exam, cardiopulmonary exam is benign, abdomen is soft, nontender, nondistended. Weight in the ER is up 4 pounds from what was reported to be his previous weight. Differential diagnosis includes but is not limited to medication side effect, electrolyte abnormality, urinary tract infection, cardiac dysfunction, I considered the possibility of malignancy however patient does not have any complaints that would help me identify a source of this especially with his improving weight recently. I have high suspicion for recent medication side effects as well as inappropriate medical equipment use at home contributing to patient's visit today, however workup will be performed to evaluate for the above pathology. Based on these concerns, I ordered cardiac workup, serum labs, urine studies. ECG personally interpreted demonstrates normal sinus rhythm, rate 94, right bundle branch block, normal TX and QTc, no STEMI. Labs personally reviewed demonstrate mild leukocytosis, nonspecific, anemia improved from previous, PT/INR normal, patient does have prerenal azotemia with slightly decreased kidney function, creatinine 1.40, compared to previous this does not represent FRANTZ. Initial troponin undetectably low at less than 0.01, UA demonstrates findings of WBCs but no bacteria or nitrates. Sterile pyuria. Few RBCs present. The findings of sterile pyuria with few RBCs does make me concerned for possible malignancy though this could simply be inflammatory. Patient does not have symptoms consistent with prostatitis though this was also considered. CT abdomen pelvis ordered for further evaluation of potential urologic pathology. XR personally interpreted demonstrates no acute intrathoracic abnormality, AICD present. See radiology read which does mention findings consistent with bibasilar atelectasis, patient does not have clinical correlation for pneumonia. While patient was being monitored in the ER, he had occasional dropped beats. He does not feel these, he does not describe palpitations, chest pain, dizziness, or other associated symptoms. His blood pressure remains stable and he continues to be well-perfused and oriented. Repeat ECG was ordered to capture these on a twelve-lead to evaluate the etiology. Repeat ECG personally interpreted demonstrates sinus rhythm with sinus arrhythmia, rate 76, right bundle branch block, no STEMI, no dynamic changes CT imaging personally interpreted demonstrates diffuse thickening of the bladder wall. Radiology read is in agreement mentioning this is likely inflammatory. On reassessment patient continues to be stable. Normotensive, no changes on the monitor. He has received IV fluids and at this time I believe is appropriate for discharge. I provided a referral to urology for pyuria and few RBCs for further evaluation. I gave instructions for symptomatic management, follow-up, and return precautions for the ER. Patient and family indicated understanding, patient was discharged in stable condition. Critical Care Critical Care Time Critical Care Time: No
[2024-04-28 09:15] LABS: Basophils # 0.1 K/mm3 (0-0.2); Eosinophils # 0.3 K/mm3 (0.0-0.4); Eosinophils % 2.1 % (0.1-12.0); Hematocrit 41.3 % (42.0-52.0); Hemoglobin 12.9 g/dL (14.1-18.0); Lymphocytes # 1.6 K/mm3 (0.7-4.5); Lymphocytes % 12.9 % (10-50); Mean Corpuscular HGB Conc 31.2 g/dL (31.8-35.4); Mean Corpuscular Hemoglobin 32.3 pg (27.0-31.2); Mean Corpuscular Volume 103.6 fl (80-94); Mean Platelet Volume 7.6 fl (7.4-10.4); Monocytes # 1.4 K/mm3 (0.1-1.0); Monocytes % 11.3 % (1.7-9.3); Neutrophils % 72.7 % (37.0-80.0); Platelet Count 265 K/mm3 (142-424); Red Blood Count 3.98 M/mm3 (4.60-6.20); Red Cell Distribution Width 14.1 % (11.5-17.5); White Blood Count 12.3 K/mm3 (4.8-10.8)
[2024-04-28 09:19] LABS: Microscopic, Urine URINE MICROSCOPIC (MICROSCOPIC)
[2024-04-28 09:23] LABS: INR 0.97 (0.9-1.1); Prothrombin Time 10.9 seconds (10.1-12.5)
[2024-04-28 09:27] LABS: Albumin Level 3.5 g/dl (3.5-5.0); Chloride 106 mmol/L (98-107); Potassium 4.5 mmoL/L (3.5-5.1); Sodium 136 mmol/L (136-145)
[2024-04-28 09:27] LABS: Appearance,Urine CLEAR (Clear); Bilirubin,Urine Negative (Negative); Blood, Urine Negative (Negative); Color,Urine YELLOW (Yellow); Glucose,Urine (UA) Negative (Negative); Ketones,Urine Negative (Negative); Leukocyte Esterase,Urine 1+ (Negative); Nitrate,Urine Negative (Negative); Protein,Urine TRACE (Negative); Urobilinogen,Urine 0.2 EU/dl (0.2)
[2024-04-28 09:29] LABS: Alanine Aminotransferase 27 U/L (12-78); Aspartate Amino Transferase 31 U/L (17-59); Blood Urea Nitrogen 39 mg/dl (9-20); Creatinine Clearance Estimated 34 mL/min (50-200); Estimated Glomerular Filt Rate 48 ml/min (>60); GFR (African American) 58 ML/MIN (>60)
[2024-04-28 09:30] LABS: Albumin/Globulin Ratio 1.2 (1.1-1.8); Alkaline Phosphatase 47 U/L (38-126); Anion Gap 6.5 mEq/L (5-15); Bilirubin,Total 0.5 mg/dl (0.2-1.3); Calcium 8.4 mg/dl (8.4-10.2); Carbon Dioxide 28 mmol/L (22.0-30.0); Glucose 78 mg/dl (74-100); Magnesium 1.9 mg/dl (1.6-2.3); Total Protein,Serum 6.5 g/dl (6.3-8.2)
[2024-04-28 09:44] LABS: Troponin I < 0.01 ng/ml (0.00-0.034)
--- NOTE | 2024-04-28 09:48 | PC.NURSE ---
DR OWEN AT BEDSIDE TO UPDATE PT AND FAMILY
[2024-04-28] MEDS: LACTATED RINGERS 1000ML 1,000 ML 999 ML IV (09:52)
[2024-04-28 09:54] LABS: WBC,Urine 20-50 #/hpf (0-3)
--- NOTE | 2024-04-28 10:01 | ECG_ITS ---
APPROVED REPORT Exam: Resting ECG HR:76 bpm ECG Measurements Heart Rate 76 AXES QRSd 146 QRS 90 QT 381 T 31 QTc 412 Conclusion Sinus rhythm with sinus arrhythmia RIGHT BUNDLE BRANCH BLOCK [120+ ms QRS DURATION, UPRIGHT V1, 40+ ms S IN I/aVL/V4/V5/V6] ABNORMAL ECG Electronically signed by : DANISHA OWEN, 04/28/2024 15:51:33
--- NOTE | 2024-04-28 10:09 | CT_ITS ---
FINAL REPORT CLINICAL HISTORY: sterile pyruia, generalized malaise COMPARISON: None FINDINGS: CT OF THE ABDOMEN AND PELVIS WITH CONTRAST Axial CT images of the abdomen and pelvis were obtained after the administration of IV contrast. Coronal and sagittal reformatted images were also obtained and reviewed. This study was performed with techniques to keep radiation doses as low as reasonably achievable (ALARA). Individualized dose reduction techniques using automated exposure control or adjustment of mA and/or kV according to the patient's size were employed. Abdomen: There is moderate scarring and/or fibrosis present in the lung bases bilaterally.. The heart is normal in size. The liver has an unremarkable appearance, without evidence of mass or biliary ductal dilatation. There is mild nonspecific gallbladder wall thickening present. The spleen is unremarkable. No adrenal mass is present. The pancreas has an unremarkable appearance. Several bilateral small renal cysts are present. No evidence of mass or hydronephrosis is seen. The aorta is normal in caliber. Moderate vascular calcifications are present. There is no free fluid or adenopathy. No mass or abnormal fluid collection is seen. Pelvis: The appendix is not well-visualized. The urinary bladder is remarkable for moderate bladder wall thickening, likely inflammatory. There is a left inguinal hernia with multiple nonobstructing loops of bowel, but no evidence of obstruction. The left hernia sac measures up to 8.3 cm in transverse diameter. There is a small right inguinal hernia containing fat. No inflammatory process is seen. There is no evidence of mass or adenopathy. There is no evidence of bowel obstruction. IMPRESSION: No evidence of acute intra-abdominal process. Left inguinal hernia contains a hernia sac with multiple nonobstructed bowel loops, measuring up to 8.3 cm in transverse diameter. Moderate bladder wall thickening, likely inflammatory. Reviewed, Interpreted and Dictated by Cameron Noel III, MD Transcribed by Shiloh Calvin Authenticated and [facility]
[2024-04-28] MEDS: IOPAMIDOL-370 (76%);100ML BOTTLE 75 ML IV (10:25)
[2024-04-28] MEDS: SODIUM CHLORIDE 0.9% 10ML SYR (RAD ONLY) 10 ML IV (10:25)
--- NOTE | 2024-04-28 11:00 | PC.NURSE ---
PT ASSISTED TO AND FROM [facility]
--- NOTE | 2024-04-28 11:39 | PC.NURSE ---
Dr. Ledesma at BS to update pt on POC
== END 2024-04-28 11:52 | disposition home or self-care (01) ==
PROVIDERS: Emergency Provider Emergency Medicine; PCP Nurse Practitioner Family
DX: R82.81 Pyuria (principal); R53.1 Weakness; I45.10 Unspecified right bundle-branch block; I49.9 Cardiac arrhythmia, unspecified; I11.0 Hypertensive heart disease with heart failure; Z95.810 Presence of automatic (implantable) cardiac defibrillator; I50.32 Chronic diastolic (congestive) heart failure
CPT/HCPCS: 71045; 74177; 80053; 81001; 83735; 84484; 85025; 85610; 87086; 93005; 96360; 99285; J7120; Q9967

== ENCOUNTER 2024-05-09 13:50 | Outpatient (CLI) | payer MEDICARE, SELFPAY ==
[2024-05-09 15:31] LABS: Microscopic, Urine URINE MICROSCOPIC (MICROSCOPIC)
[2024-05-09 16:04] LABS: Appearance,Urine CLEAR (Clear); Blood, Urine Negative (Negative); Color,Urine YELLOW (Yellow); Glucose,Urine (UA) Negative (Negative); Ketones,Urine 1+ (Negative); Leukocyte Esterase,Urine 1+ (Negative); Nitrate,Urine Negative (Negative); Protein,Urine 1+ (Negative); Specific Gravity, Urine >= 1.030 (1.005-1.030); Urobilinogen,Urine 0.2 EU/dl (0.2)
[2024-05-09 16:05] LABS: Bilirubin,Urine 1+ (Negative)
[2024-05-09 16:52] LABS: WBC,Urine 20-50 #/hpf (0-3)
[2024-05-09 16:53] LABS: Bacteria,Urine Trace /lpf
== END 2024-05-09 23:59 | disposition home or self-care (01) ==
LOC: LAB.DROPOF 05-10 09:56
PROVIDERS: PCP Urology; Visit Provider Urology
DX: N39.0 Urinary tract infection, site not specified (principal); N32.89 Other specified disorders of bladder
CPT/HCPCS: 81001; 87086

== ENCOUNTER 2024-07-01 10:56 | Day surgery (SDC) | payer MEDICARE, SELFPAY ==
[2024-06-29 14:47] VITALS: BMI 23.2
[2024-07-01 11:21] VITALS: BMI 23.2
[2024-07-01 11:32] VITALS: BP 135/62; PULSE 63; RESP 18; TEMP 36.5; O2SAT 98
--- NOTE | 2024-07-01 11:49 | [facility].PROCNOTE ---
[facility] Procedure Note Date: 07/01/24 Time: 11:50 Procedure Note:: Chart review: The patient was earlier in the emergency room where pyuria was noted. The urine culture returned negative. He had a CT scan showing thickness of the bladder and cystoscopy was suggested. Preop diagnosis: Thickened bladder wall Postop diagnosis: Thick bladder wall/trabeculation Operative note: The patient was brought to the cystoscopy suite he was prepped and draped in the usual fashion. He underwent flexible cystoscopy. The anterior urethra is unremarkable. The patient's membranous and prostatic urethra and urethra are vascular. The patient has grade 1-2 obstruction and part of this is from a small median lobe. The patient's bladder is fairly heavily trabeculated. The ureteral orifices are normal bilaterally. There is some debris in the bladder. There is no evidence of bladder stone tumor hemorrhage or infection. The patient tolerated the procedure well.
[2024-07-01] MEDS: LACTATED RINGERS 1000ML 1,000 ML 25 ML IV (11:50)
[2024-07-01 11:53] VITALS: BP 120/85; PULSE 69; RESP 16; TEMP 36.8; O2SAT 99
== END 2024-07-01 12:14 | disposition home or self-care (01) ==
PROVIDERS: PCP Nurse Practitioner Family; Visit Provider Urology
PROC: 0TJB8ZZ Inspection of Bladder, Via Natural or Artificial Opening Endoscopic (ICD-10-PCS; CPT 52000; principal; 2024-07-01 12:15)
DX: N32.89 Other specified disorders of bladder (principal); N40.0 Benign prostatic hyperplasia without lower urinary tract symptoms
CPT/HCPCS: 52000; J7120

== ENCOUNTER 2024-07-12 21:29 | Inpatient (IN) | payer MEDICARE, SELFPAY ==
[2024-07-12 21:29] VITALS: BP 113/59; PULSE 79; RESP 16; TEMP 37; O2SAT 92; BMI 22.7
--- NOTE | 2024-07-12 21:31 | ED_ITS ---
<Statement entered by Rosalie Powers DO - 07/12/24 22:34> I was consulted by the MIKKI, and we discussed the complexity of the problems being addressed. I approved the treatment and management plan for this patient's care in the emergency department, thus performing a substantive portion of the medical decision making. Rosalie Powers DO Discharge Plan Disposition Patient Disposition: Admitted Condition: Good Chief Complaint: PAIN Prescriptions Prescriptions: No Action lorazepam 0.5 mg tablet 0.5 mg PO DIRECTED memantine 5 mg tablet 5 mg PO DAILY Patient Comments: TAKE ONE TABLET BY MOUTH EVERY DAY FOR memory sertraline [Zoloft] 25 mg tablet 25 mg PO DAILY Patient Comments: TAKE ONE TABLET BY MOUTH EVERY DAY AT bedtime FOR mood donepezil 5 mg tablet 5 mg PO DAILY Patient Comments: TAKE ONE TABLET BY MOUTH EVERY DAY FOR memory trazodone 100 mg tablet 100 mg PO HS Patient Comments: TAKE ONE TABLET BY MOUTH NIGHTLY AT BEDTIME FOR SLEEP risperidone 0.25 mg tablet 0.25 mg PO DAILY Patient Comments: Take one tablet by mouth every day at 5 pm tamsulosin [Flomax] 0.4 mg capsule 0.4 mg PO DAILY Qty: 30 3RF oxybutynin chloride 10 mg tablet extended release 24hr 10 mg PO DAILY Qty: 90 3RF metoprolol succinate 50 mg tablet extended release 24 hr 100 mg PO DAILY spironolactone 25 mg tablet 12.5 mg PO DAILY Entresto 24-26 mg tablet 0.5 tab PO BID multivitamin Tablet 1 tab PO DAILY ascorbic acid (vitamin C) [Vitamin C] 500 mg Tablet 500 mg PO HS aspirin 81 mg Tablet 81 mg PO DAILY loratadine [Claritin] 10 mg Tablet 10 mg PO DAILY cholecalciferol (vitamin D3) [Vitamin D3] 10 mcg (400 unit) Capsule 10 mcg PO HS famotidine [Pepcid] 20 mg Tablet 20 mg PO DAILY Referrals Follow up/Referrals: Provider,Referral, [Referring] - See instructions Clinical Impressions Clinical Impression: Closed left femoral fracture Print Language Print Language: Frisian Discharge ED Provider: Rosalie Powers General Adult HPI General Chief complaint: PAIN Stated complaint: Fall Time Seen by Provider: 07/12/24 21:31 History of Present Illness HPI narrative: Patient is a 88-year-old male presents for evaluation of a left hip injury. Patient accidentally fell at his home landing on his left hip. He felt a sharp pain and was unable to get up and called EMS. He denies any other injury, did not strike his head did not lose consciousness. He has no numbness no tingling in that extremity and is neurovascular intact distally. Related Data Home Medications ?Medication ?Instructions ?Recorded ?Confirmed ascorbic acid (vitamin C) 500 mg 500 mg PO HS Supplement 06/24/23 07/04/24 tablet (Vitamin C) aspirin 81 mg tablet 81 mg PO DAILY HEART HEALTH 06/24/23 07/04/24 cholecalciferol (vitamin D3) 10 10 mcg PO HS Supplement 06/24/23 07/04/24 mcg (400 unit) capsule (Vitamin D3) famotidine 20 mg tablet (Pepcid) 20 mg PO DAILY GERD 06/24/23 07/04/24 loratadine 10 mg tablet (Claritin) 10 mg PO DAILY ALLERGIES 06/24/23 07/04/24 metoprolol succinate 50 mg 100 mg PO DAILY High Blood Pressure 06/24/23 07/04/24 tablet,extended release 24 hr multivitamin 1 tab PO DAILY Supplement 06/24/23 07/04/24 sacubitril 24 mg-valsartan 26 mg 0.5 tab PO BID Heart Failure 06/24/23 07/04/24 tablet (Entresto) spironolactone 25 mg tablet 12.5 mg PO DAILY Fluid 06/24/23 07/04/24 donepezil 5 mg tablet 5 mg PO DAILY 05/09/24 07/04/24 memantine 5 mg tablet 5 mg PO DAILY 05/09/24 07/04/24 risperidone 0.25 mg tablet 0.25 mg PO DAILY 05/09/24 07/04/24 sertraline 25 mg tablet (Zoloft) 25 mg PO DAILY 05/09/24 07/04/24 trazodone 100 mg tablet 100 mg PO HS 05/09/24 07/04/24 lorazepam 0.5 mg tablet 0.5 mg PO DIRECTED 06/20/24 07/04/24 Previous Rx's ?Medication ?Instructions ?Recorded oxybutynin chloride 10 mg 10 mg PO DAILY #90 tabs 07/04/24 tablet,extended release 24 hr tamsulosin 0.4 mg capsule (Flomax) 0.4 mg PO DAILY #30 caps 07/04/24 Allergies Allergy/AdvReac Type Severity Reaction Status Date / Time ibuprofen Allergy Hives Verified 07/04/24 10:27 Sulfa (Sulfonamide Allergy Hives Verified 07/04/24 10:27 Antibiotics) [facility] Disclaimer: The information contained in this section may have been updated after the patient was seen, as this information can be updated by other users. Medical History Chronic heart failure with preserved ejection fraction (HFpEF) Aortic valve disease Cardiac defibrillator in place Hypertension Surgical History Aortic valve replaced AICD (automatic cardioverter/defibrillator) present History of appendectomy Amputation finger Family History Mother Coronary artery disease Heart attack Father Dementia Other Family history of hypertension Social History Smoking Status: Never smoker alcohol intake: never current occupational status: retired and other Travel in the last 8 weeks: None Other Medical History Have you received the Flu Vaccine for this season: No Have you received the Pneumonia Vaccine: Yes ROS Obtained: Yes Systems reviewed as appropriate & no additional complaints except as documented Physical Exam General General appearance: alert and in no apparent distress Respiratory Respiratory exam: Present normal lung sounds bilaterally and accessory muscle use Cardiovascular Cardiovascular exam: Present regular rate Neurological Exam Neurological exam: Present alert and oriented X3 Medical Decision Making Medical Records Medical records reviewed: Yes I reviewed the patient's medical records. Screening: Per USPSTF and CDC recommendations, given the prevalence of disease in our region, it is our hospital?s policy to screen for HIV and viral Hepatitis for all patients aged 18 and over and those with ongoing risk factors. Alexx Inquiry Pt receiving controlled substance: No Vital Signs: 07/12/24 21:29 Temperature 98.6 F Temperature Source Oral Pulse Rate [Right Brachial] 79 Respiratory Rate 16 Blood Pressure [Right Arm] 113/59 L Blood Pressure Mean [Right Arm] 77 Blood Pressure Source [Right Arm] Automatic Cuff 02 Sat by Pulse Oximetry 92 L Oxygen Delivery Method Room Air Orders (Tests/Meds): ED MEDICATIONS Discontinued Medications Generic Name Dose Route Start Last Admin Trade Name Freq PRN Reason Stop Dose Admin Acetaminophen 1,000 mg 07/12/24 21:31 07/12/24 21:50 Acetaminophen 500mg Tab PO 07/12/24 21:32 1,000 mg ONCE ONE Administration Oxycodone HCl 5 mg 07/12/24 21:31 07/12/24 21:50 Oxycodone 5mg Immediate Release Tablet PO 07/12/24 21:32 5 mg ONCE ONE Administration ORDERS Category Date Time Status Type and Screen Stat BBK 07/12/24 21:[address] bony pelvis Stat Cat Scan 07/12/24 21:[address] cervical spine wo con Stat Cat Scan 07/12/24 21:[address] head/brain wo con Stat Cat Scan 07/12/24 21:35 Taken Femur XR left 2 views [XR femur LT 2V] Stat Exams 07/12/24 21:36 Taken XR knee LT 2V Stat Exams 07/12/24 21:36 Taken CBC w/Auto Diff [Complete Blood Count Auto Diff] Stat Lab 07/12/24 21:56 Ordered CMP [Comprehensive Metabolic Panel] Stat Lab 07/12/24 21:56 Ordered HIV (1&2) Antibody Rapid Stat Lab 07/12/24 21:44 Ordered Hep C Ab with Reflex to RNA Stat Lab 07/12/24 21:44 Ordered INR [Prothrombin Time INR] Stat Lab 07/12/24 21:56 Ordered PTT [Activated Partial Thrombo Time] Stat Lab 07/12/24 21:56 Ordered Medical Decision Narrative: In summary patient is a 88-year-old male who presents to the emergency department for evaluation of left hip injury. Patient is hemodynamically stable upon arrival, afebrile. Physical exam is remarkable for tenderness about the left hip with foreshortening of the same extremity however he is neurovascular intact distally. He is able to flex and extend his knee. He has no spinal tenderness. In addition, patient has a known left inguinal hernia of significant size however he is not having any pain and he was planned to undergo elective repair and to that end was due to have a echocardiogram next week in preparation and clearance for surgery. Differential diagnosis includes contusion versus fracture. Initial workup will be conducted with CT scan pelvis left hip. Initial interventions include Tylenol and oxycodone. Initial workup reviewed by me and my informal to rotation of his CT scan pelvis shows a left femoral neck fracture with the remainder of his images showing no other acute injury. Given that I had interactive discussion with Dr. Baptiste of orthopedics and will place the patient n.p.o. after midnight for potential operative repair and likely cardiac clearance in the morning. Given that I had interact discussion with hospital medicine about patient management and he has been admitted for further evaluation and care Critical Care Critical Care Time Critical Care Time: No
--- NOTE | 2024-07-12 21:35 | CT_ITS ---
PROCEDURE INFORMATION: Exam: CT Cervical Spine Without Contrast Exam date and time: 07/12/2024 10:02 PM Age: 88 years old Clinical indication: Injury or trauma; Fall; Additional info: Fall >65 TECHNIQUE: Imaging protocol: Computed tomography of the cervical spine without contrast. Radiation optimization: All CT scans at this facility use at least one of these dose optimization techniques: automated exposure control; mA and/or kV adjustment per patient size (includes targeted exams where dose is matched to clinical indication); or iterative reconstruction. COMPARISON: CT HEAD/BRAIN WO CON 07/12/2024 9:59 PM FINDINGS: Bones: Spinal alignment is normal. No fracture or bone destruction. Multilevel degenerative change with disc space narrowing predominantly at C5-C6, C6-C7 and C7-T1 levels small posterior projecting disc osteophyte complexes. Erosive change in the left atlanto occipital joint sagittal image 1002/57. [id number]-[id number] multilevel facet arthropathy. Teeth: Dental space narrowing, extensive hypertrophic pannus around the dens with erosive changes in the dens consistent with arthritis sagittal images 1002/50. Lungs: Lung apices are normal. Vasculature: Right carotid calcifications. Soft tissues: Unremarkable. IMPRESSION: 1. Spinal alignment is normal. 2. No fracture or bone destruction. 3. Dental space narrowing, extensive hypertrophic pannus around the dens with erosive changes in the dens consistent with arthritis sagittal images 1002/50. 4. Multilevel degenerative change with disc space narrowing predominantly at C5-C6, C6-C7 and C7-T1 levels small posterior projecting disc osteophyte complexes. 5. Erosive change in the left atlanto occipital joint sagittal image 1002/57. Findings consistent with arthritis. 6. Ohgi-jv-xwzmuynj multilevel facet arthropathy. 7. Right carotid calcifications.
--- NOTE | 2024-07-12 21:35 | CT_ITS ---
PROCEDURE INFORMATION: Exam: CT Pelvis Without Contrast, Skeleton Exam date and time: 07/12/2024 9:46 PM Age: 88 years old Clinical indication: Injury or trauma; Fall; Additional info: Fall, head injury TECHNIQUE: Imaging protocol: Computed tomography of the pelvis without contrast. Exam focused on the skeleton. Radiation optimization: All CT scans at this facility use at least one of these dose optimization techniques: automated exposure control; mA and/or kV adjustment per patient size (includes targeted exams where dose is matched to clinical indication); or iterative reconstruction. COMPARISON: CT ABDOMEN PELVIS W CON 04/28/2024 10:26 AM FINDINGS: Vasculature: Atherosclerotic calcification of aortoiliac arteries without aneurysm. Reproductive: Nonobstructive fat and bowel containing left inguinal and scrotal hernia. Bones/joints: Left femoral neck subcapital fracture with angulation and impaction. No dislocation. Soft tissues: Unremarkable. IMPRESSION: 1. Left femoral neck fracture. 2. Nonobstructive fat and bowel containing left inguinal and scrotal hernia.
--- NOTE | 2024-07-12 21:35 | CT_ITS ---
PROCEDURE INFORMATION: Exam: CT Head Without Contrast Exam date and time: 07/12/2024 9:59 PM Age: 88 years old Clinical indication: Injury or trauma; Fall; Additional info: Fall >65 TECHNIQUE: Imaging protocol: Computed tomography of the head without contrast. Radiation optimization: All CT scans at this facility use at least one of these dose optimization techniques: automated exposure control; mA and/or kV adjustment per patient size (includes targeted exams where dose is matched to clinical indication); or iterative reconstruction. COMPARISON: CT HEAD/BRAIN WO CON 07/12/2024 9:59 PM FINDINGS: Brain: No evidence for intracranial hemorrhage, mass lesions or acute stroke. Intracranial vascular calcifications. Mild small vessel ischemic change in the periventricular white matter. 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 Image 3/. Old right superior cerebellar infarct image 3/. Cerebral ventricles: Mild ventricular prominence. Pituitary gland and sella: Negative Paranasal sinuses: Visualized sinuses are unremarkable. No fluid levels. Mastoid air cells: Visualized mastoid air cells are well aerated. Orbital cavities: Bilateral cataract extractions. Parotid and submandibular glands: Negative Bones: Unremarkable. No acute fracture. Soft tissues: Unremarkable. Vasculature: Negative. Other findings: Mild generalized atrophy. IMPRESSION: 1. No evidence for intracranial hemorrhage, mass lesions or acute stroke. 2. Intracranial vascular calcifications. 3. Mild generalized atrophy. 4. Mild small vessel ischemic change in the periventricular white matter. 5. Mild ventricular prominence. 6. 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 Image 3/. 7. Old right superior cerebellar infarct image 3/23.
--- NOTE | 2024-07-12 21:36 | XR_ITS ---
PROCEDURE INFORMATION: Exam: XR Left Femur Exam date and time: 07/12/2024 9:42 PM Age: 88 years old Clinical indication: Pain; Thigh; Left; Additional info: Fall >65, pain TECHNIQUE: Imaging protocol: Radiologic exam of the left femur. Views: 2 views. COMPARISON: CR XR KNEE LT 2V 07/12/2024 9:42 PM FINDINGS: Bones/joints: Subcapital femoral neck fracture with partial impaction angulation. No dislocation. Soft tissues: Unremarkable. IMPRESSION: Femoral neck fracture.
--- NOTE | 2024-07-12 21:36 | XR_ITS ---
PROCEDURE INFORMATION: Exam: XR Left Knee Exam date and time: 07/12/2024 9:42 PM Age: 88 years old Clinical indication: Pain; Knee; Left; Additional info: Fall >65, pain TECHNIQUE: Imaging protocol: Radiologic exam of the left knee. Views: 1 or 2 views. COMPARISON: CR XR KNEE LT 2V 07/12/2024 9:42 PM FINDINGS: Bones/joints: No acute fracture. Kdhv-fu-zrrlagoh degenerative changes. Normal bony density. Soft tissues: Normal. IMPRESSION: No acute findings.
[2024-07-12] MEDS: ACETAMINOPHEN 500MG TAB 1000 MG PO (21:50)
[2024-07-12] MEDS: OXYCODONE 5MG IMMEDIATE RELEASE TABLET 5 MG PO (21:50)
--- NOTE | 2024-07-12 21:54 | PC.NURSE ---
Pt in xray
--- NOTE | 2024-07-12 21:56 | PC.NURSE ---
Left foot pink warm and dry. Peripheral pulses palpable and equal. Noted large inguinal hernia upon assessment of hip Pt aware and has no complaints with hernia. Pain with movement of left hip Left leg externally rotated and slightly shortened. Family at bedside patient in xray
--- NOTE | 2024-07-12 22:04 | PC.NURSE ---
Ayaan Brand PA-C s/w Christy ELIAS for admission. color making supervisor notified, bed request placed.
--- NOTE | 2024-07-12 22:14 | PC.NURSE ---
Pt back from xray Repositioned for comfort. #20 IV initiated left AC and flushed after labs drawn and sent to lab
--- NOTE | 2024-07-12 22:27 | PC.NURSE ---
Called report to Asiya MATHEW on Med/Surg
[2024-07-12 22:28] LABS: Basophils # 0.1 K/mm3 (0-0.2); Basophils % 0.9 % (0.1-2.0); Eosinophils # 0.2 K/mm3 (0.0-0.4); Eosinophils % 1.3 % (0.1-12.0); Hematocrit 39.5 % (42.0-52.0); Hemoglobin 13.2 g/dL (14.1-18.0); Lymphocytes # 1.3 K/mm3 (0.7-4.5); Lymphocytes % 10.6 % (10-50); Mean Corpuscular HGB Conc 33.4 g/dL (31.8-35.4); Mean Corpuscular Hemoglobin 33.2 pg (27.0-31.2); Mean Corpuscular Volume 99.1 fl (80-94); Monocytes # 0.8 K/mm3 (0.1-1.0); Monocytes % 6.4 % (1.7-9.3); Neutrophils # 9.8 K/mm3 (1.8-7.8); Neutrophils % 80.8 % (37.0-80.0); Platelet Count 326 K/mm3 (142-424); Red Blood Count 3.99 M/mm3 (4.60-6.20); White Blood Count 12.2 K/mm3 (4.8-10.8)
[2024-07-12 22:29] VITALS: BP 112/59; PULSE 82; RESP 15; O2SAT 93
[2024-07-12 22:34] LABS: Albumin Level 4.1 g/dl (3.5-5.0); Chloride 108 mmol/L (98-107); Sodium 140 mmol/L (136-145)
[2024-07-12 22:35] LABS: Activated Partial Thrombo Time 26.7 seconds (22.8-30.6); INR 0.97 (0.9-1.1); Potassium 4.5 mmoL/L (3.5-5.1); Prothrombin Time 10.9 seconds (10.1-12.5)
[2024-07-12 22:37] LABS: Alanine Aminotransferase 22 U/L (12-78); Albumin/Globulin Ratio 1.2 (1.1-1.8); Alkaline Phosphatase 74 U/L (38-126); Anion Gap 11.5 mEq/L (5-15); Aspartate Amino Transferase 32 U/L (17-59); Bilirubin,Total 0.4 mg/dl (0.2-1.3); Blood Urea Nitrogen 36 mg/dl (9-20); Calcium 9.1 mg/dl (8.4-10.2); Carbon Dioxide 25 mmol/L (22.0-30.0); Creatinine Clearance Estimated 30 mL/min (50-200); Estimated Glomerular Filt Rate 41 ml/min (>60); GFR (African American) 50 ML/MIN (>60); Globulin 3.5 g/dL (1.3-3.2); Glucose 109 mg/dl (74-100); Total Protein,Serum 7.6 g/dl (6.3-8.2)
[2024-07-12 22:42] VITALS: BP 115/60; PULSE 79; RESP 17; TEMP 37; O2SAT 97
--- NOTE | 2024-07-12 22:59 | PC.NURSE ---
Patient arrived to floor via stretcher from ED at 22:58.
[2024-07-12 23:05] LABS: HIV (1&2) Antibody Rapid NONREACTIVE (NONREACTIVE)
--- NOTE | 2024-07-12 23:11 | XR_ITS ---
PROCEDURE INFORMATION: Exam: XR Chest Exam date and time: 07/12/2024 11:13 PM Age: 88 years old Clinical indication: Screening exam; Pre-operative exam; Other: Pain; Additional info: Pre op TECHNIQUE: Imaging protocol: Radiologic exam of the chest. Views: 1 view. COMPARISON: CR XR CHEST PORTABLE 04/28/2024 9:15 AM FINDINGS: Tubes, catheters and devices: Pacer/AICD electrode. Lungs: No focal airspace consolidation. Accentuated bronchovascular markings. Pleural spaces: Trace blunting left costophrenic angle. Heart/Mediastinum: Mild cardiomegaly. Status post TAVR. Bones/joints: Unremarkable. IMPRESSION: 1. Mild cardiomegaly. 2. Pacer/AICD electrode. 3. Status post TAVR. 4. No focal airspace consolidation. 5. Trace blunting left costophrenic angle. 6. Accentuated bronchovascular markings.
[2024-07-12 23:16] VITALS: BP 122/63; PULSE 93; RESP 16; TEMP 37.4; O2SAT 92; BMI 21.9
[2024-07-12] MEDS: MORPHINE 2MG/ML SYRINGE 2 MG IV (23:45)
[2024-07-13] VITALS (19 sets, daily range): BP systolic 88–122; BP diastolic 48–65; PULSE 67–107; RESP 14–19; TEMP 36.5–37.9; O2SAT 86–97; BMI 21.9
--- NOTE | 2024-07-13 00:05 | P.HP_ITS ---
<Statement entered by Edwardo Carr MD - 07/13/24 22:40> Personal evaluated the patient and agree with the plan of care outlined by our VALIDATION MANAGER. History of Present Illness *Admission Date: 07/12/24 *Reason for visit:: Fall *History of present illness: This is a 88-year-old male with past medical history of inguinal hernia, BPH, chronic diastolic heart failure, status post TAVR who presents to the emergency department today with complaints of mechanical fall. States he was carrying a trash can and tripped over a carpet in the garage and fell landing on his left side. He denies loss of consciousness during the fall. Noted to have left hip deformity upon arrival with EMS. Denies any chest pain or shortness of breath prior to the fall. States that he is being worked up for cardiac clearance for inguinal hernia surgery. Emergency department workup notable for left femoral neck fracture. All of the traumagram is negative. CKD noted with a creatinine of 1.6, other labs unremarkable. He is admitted to hospital service. Ortho was consulted, he will be made NPO. [facility] Disclaimer: The information contained in this section may have been updated after the patient was seen, as this information can be updated by other users. Medical History Hernia Chronic heart failure with preserved ejection fraction (HFpEF) Aortic valve disease Cardiac defibrillator in place Hypertension Surgical History (Updated 07/12/24 @ 23:36 by Asiya Marques RN) History of biopsy of bladder Aortic valve replaced AICD (automatic cardioverter/defibrillator) present History of appendectomy Amputation finger Family History Mother Coronary artery disease Heart attack Father Dementia Other Family history of hypertension Social History (Updated 07/12/24 @ 23:36 by Asiya Marques RN) Smoking Status: Former smoker alcohol intake: never current occupational status: retired and other Travel in the last 8 weeks: None Other Medical History Have you received the Flu Vaccine for this season: Yes Have you received the Pneumonia Vaccine: Yes Review of Systems Review of Systems Review of systems:: other Review of systems (narrative): ROS negative except for HPI Meds Home Medications and Allergies Home Medications ?Medication ?Instructions ?Recorded ?Confirmed ?Type aspirin 81 mg tablet 81 mg PO DAILY HEART HEALTH 06/24/23 07/12/24 History famotidine 20 mg tablet (Pepcid) 20 mg PO DAILY GERD 06/24/23 07/12/24 History loratadine 10 mg tablet (Claritin) 10 mg PO DAILY ALLERGIES 06/24/23 07/12/24 History metoprolol succinate 50 mg 100 mg PO DAILY High Blood Pressure 06/24/23 07/12/24 History tablet,extended release 24 hr sacubitril 24 mg-valsartan 26 mg 0.5 tab PO BID Heart Failure 06/24/23 07/12/24 History tablet (Entresto) spironolactone 25 mg tablet 12.5 mg PO DAILY Fluid 06/24/23 07/12/24 History donepezil 5 mg tablet 5 mg PO DAILY 05/09/24 07/12/24 History memantine 5 mg tablet 5 mg PO DAILY 05/09/24 07/12/24 History sertraline 25 mg tablet (Zoloft) 25 mg PO DAILY 05/09/24 07/12/24 History lorazepam 0.5 mg tablet 0.5 mg PO DIRECTED 06/20/24 07/12/24 History oxybutynin chloride 10 mg 10 mg PO DAILY #90 tabs 07/04/24 07/12/24 Rx tablet,extended release 24 hr tamsulosin 0.4 mg capsule (Flomax) 0.4 mg PO DAILY #30 caps 07/04/24 07/12/24 Rx New Prescriptions to Start Prescriptions: Allergies Allergy/AdvReac Type Severity Reaction Status Date / Time ibuprofen Allergy Hives Verified 07/04/24 10:27 Sulfa (Sulfonamide Allergy Hives Verified 07/04/24 10:27 Antibiotics) Exam Data for Last 24 hours Vital signs and Labs for Last 24 Hours: Temp Pulse Resp BP Pulse Ox O2 Del Method 99.4 F 93 H 16 122/63 92 L Room Air 07/12/24 23:16 07/12/24 23:16 07/12/24 23:16 07/12/24 23:16 07/12/24 23:16 07/12/24 23:16 Laboratory Results - last 24 hr 07/12/24 22:11: WBC 12.2 H, RBC 3.99 L, Hgb 13.2 L, Hct 39.5 L, MCV 99.1 H, MCH 33.2 H, MCHC 33.4, RDW 14.0, Plt Count 326, MPV 7.0 L, Neut % (Auto) 80.8 H, Lymph % (Auto) 10.6, [place] % (Auto) 6.4, Eos % (Auto) 1.3, Baso % (Auto) 0.9, Neut # (Auto) 9.8 H, Lymph # (Auto) 1.3, Kent # (Auto) 0.8, Eos # (Auto) 0.2, Baso # (Auto) 0.1, PT 10.9, INR 0.97, APTT 26.7, Sodium 140, Potassium 4.5, Chloride 108 H, Carbon Dioxide 25, Anion Gap 11.5, BUN 36 H, Creatinine 1.60 H, Estimated Creat Clear 30, Estimated GFR 41 L, Est GFR ( Amer) 50 L, Glucose 109 H, Calcium 9.1, Total Bilirubin 0.4, AST 32, ALT 22, Alkaline Phosphatase 74, Total Protein 7.6, Albumin 4.1, Globulin 3.5 H, Albumin/Globulin Ratio 1.2, HIV 1&2 Antibody Rapid Nonreactive, Blood Type O Positive, Antibody Screen Negative I & O for Last 24 hours: Intake & Output 07/10/24 07/11/24 07/12/24 07/13/24 23:59 23:59 23:59 23:59 Weight 63.548 kg Constitutional Constitutional: no acute distress *Routine HEENT Exam Head: Present normocephalic Eye: Present EOMI and PERRL ENT: Present mucous membranes moist *Routine Neck Exam Neck: Present supple; Absent lymphadenopathy *Routine Respiratory Exam Respiratory: Present CTA bilaterally *Routine Cardiovascular Exam Cardiovascular: Present RRR *Routine Abdominal Exam Abdominal: Present soft and normoactive bowel sounds; Absent tenderness *Routine Rectal Exam Rectal:: deferred *Routine Genitalia Exam Genitalia:: deferred *Routine Extremities Exam Comments: Left lower extremity ROM difficult secondary to pain and injury. Pulses intact otherwise. *Routine Skin Exam Skin: Present warm; Absent rash *Routine Neurological Exam Neurological: Present alert and oriented X3 Assessment and Plan *Assessment and plan (1) Closed left femoral fracture: Status: Acute Qualifiers: Encounter type: initial encounter Femur location: base of neck Fracture alignment: nondisplaced Qualified Code(s): S72.045A - Nondisplaced fracture of base of neck of left femur, initial encounter for closed fracture Category: Medical Code(s): S72.92XA - Unspecified fracture of left femur, initial encounter for closed f racture (2) Inguinal hernia of left side without obstruction or gangrene: Status: Acute Category: Medical Code(s): K40.90 - Unilateral inguinal hernia, without obstruction or gangrene, not specified as recurrent (3) Chronic heart failure with preserved ejection fraction (HFpEF): Status: Acute Category: Medical Code(s): I50.32 - Chronic diastolic (congestive) heart failure Plan #Left femoral neck fracture Status post mechanical fall. Dr. Baptiste consulted and will see patient in AM N.p.o. with maintenance IV fluids Hold aspirin at this time Multimodal pain medications Hip precautions #History of chronic heart failure and status post TAVR Will need echocardiogram and cardiac optimization prior to surgery Consult to cardiology in a.m. #Inguinal hernia Noted on CT imaging. Stable Patient reports will be undergoing elective surgery once able #Cognitive impairment Continue home memantine and sertraline as needed
--- NOTE | 2024-07-13 03:18 | PC.NURSE ---
Pt used urinal for void at this time, but accidentally dropped it in floor, charted as unmeasured, unable to get urine sample at this time. New urinal placed at bedside. Lulú Lopez APRN ordered for abel for comfort, but stated if patient can use urinal that is okay too.
[2024-07-13 05:28] LABS: Microscopic, Urine URINE MICROSCOPIC (MICROSCOPIC)
[2024-07-13 05:30] LABS: Appearance,Urine CLEAR (Clear); Bilirubin,Urine Negative (Negative); Blood, Urine 3+ (Negative); Color,Urine YELLOW (Yellow); Glucose,Urine (UA) TRACE (Negative); Ketones,Urine Negative (Negative); Leukocyte Esterase,Urine TRACE (Negative); Nitrate,Urine Negative (Negative); Protein,Urine 1+ (Negative); Specific Gravity, Urine 1.025 (1.005-1.030); Urobilinogen,Urine 0.2 EU/dl (0.2)
[2024-07-13 05:53] LABS: Bacteria,Urine 1+ /lpf; RBC,Urine TNTC #/hpf (0-3)
--- NOTE | 2024-07-13 06:00 | CA_ITS ---
APPROVED REPORT EXAM: Comprehensive 2D, Doppler, and color-flow Echocardiogram Grocery Caddy: Lola Clark RDCS Ht: 5 ft 7 in Wt: 145lbs BSA: 1.76 BP: 122/63 mmHg Indications: L HIP FX,PACER,CAD,CHRONIC CHF TDS SECONDARY TO FX HIP, s/p TAVR M-Mode Dimensions RVDd 2.36 cm (0.9-2.6) LA Diam 3.55 cm (1.9-4.0) LVDd 4.57 cm (3.5-5.7) LVDs 3.61 cm (3.5-5.7) IVSd 0.61 cm (0.6-1.1) PWd 0.64 cm (0.6-1.1) EF (Teich) 42.90% FS 21.00% EDV (Teich) 95.90 mL ESV (Teich) 54.80 mL LV Diastology E Decel Time 117 (160-240 msec) E/A Ratio 9.7 Aortic Valve ROBERT Index 0.82 cm2/m2 AoV Peak Ramesh. 103.0 (50-130 cm/s) AO Peak GR. 4.20 mmHg AO Mean GR. 2.10 (<5 mmHg) AO VTI 16.3 (18-25 cm) ROBERT (VTI) 1.48 (2.5-4.5 cm2) Mitral Valve MV E Max Ramesh. 126.0 (40-130 cm/s) MV A Velocity 13.0 (40-130 cm/s) E/A Ratio 9.43 MV PHT 34.0 ms Tricuspid Valve TR P. Velocity 284.00 cm/s RAP Estimate 10.00 mmHg RVSP 42.30 mmHg Left Ventricle The left ventricle is normal size. The left ventricular systolic function is normal. The left ventricular ejection fraction is within the normal range. There is increased LV wall thickness. The septum is asynchronous. Diastolic function is indeterminate. LVEF is 50-55%. Right Ventricle Right ventricle is mildly dilated. Right ventricle is mildly hypokinetic. There is a device lead in the right ventricle. Atria The left atrium size is normal. The right atrium size is normal. There is no Doppler evidence of interatrial shunt. Aortic Valve s/p TAVR. The prosthesis is well-seated. Peak velocity 1.1 m/s. Mean AV gradient 2 mmHg. Max AV gradient 4 mmHg. Trace paravalvular regurgitation. No evidence of central regurgitation. Mitral Valve The mitral valve leaflets are mildly thickened. No evidence of mitral valve stenosis. Trace mitral regurgitation. Tricuspid Valve The tricuspid valve leaflets are thin and pliable. Mild tricuspid regurgitation. RVSP is 30-35 mmHg. Pulmonic Valve The pulmonary valve is not well-visualized. Great Vessels The aortic root is normal in size. The ascending aorta is not well-visualized. IVC is normal in size and collapses >50% with inspiration. Pericardium There is no pericardial effusion. Other Information Study Quality: Fair Conclusion Normal LV systolic function. Mild RV dilation with mild reduction in RV function. s/p TAVR. Prosthesis is well-seated. Trace paravalvular leak. Acceptable transaortic parameters (peak velocity 1.1 m/s. Mean AV gradient 2 mmHg. Max AV gradient 4 mmHg). Mild TR. RVSP 30-35 mmHg. Electronically signed by : Madelyn Garcia MD 07/13/2024 12:04:07
--- NOTE | 2024-07-13 06:53 | PC.NURSE ---
Alert and oriented, intermittently confusion, easily reoriented. Complained of pain 1 time, treated per nov. Uses urinal one time, clear urine cleaned up from floor. Tech notified with RN of blood coming from penis and urine was blood tinged, notified John ALY, stated to put 3way abel in, sample collected and sent. Patient has rested most of the night. SCDs applied. Bed alarm on. Call light in reach.
[2024-07-13 06:58] LABS: Basophils # 0.1 K/mm3 (0-0.2); Basophils % 0.6 % (0.1-2.0); Eosinophils # 0.1 K/mm3 (0.0-0.4); Eosinophils % 0.8 % (0.1-12.0); Hematocrit 35.1 % (42.0-52.0); Lymphocytes # 0.9 K/mm3 (0.7-4.5); Lymphocytes % 7.1 % (10-50); Mean Corpuscular HGB Conc 32.6 g/dL (31.8-35.4); Mean Corpuscular Hemoglobin 32.7 pg (27.0-31.2); Mean Corpuscular Volume 100.2 fl (80-94); Mean Platelet Volume 7.3 fl (7.4-10.4); Monocytes # 0.9 K/mm3 (0.1-1.0); Monocytes % 7.4 % (1.7-9.3); Neutrophils # 10.4 K/mm3 (1.8-7.8); Platelet Count 288 K/mm3 (142-424); Red Cell Distribution Width 13.9 % (11.5-17.5); White Blood Count 12.4 K/mm3 (4.8-10.8)
[2024-07-13 07:00] LABS: Chloride 109 mmol/L (98-107); Potassium 4.2 mmoL/L (3.5-5.1); Sodium 138 mmol/L (136-145)
[2024-07-13 07:03] LABS: Anion Gap 9.2 mEq/L (5-15); Blood Urea Nitrogen 36 mg/dl (9-20); Calcium 8.3 mg/dl (8.4-10.2); Carbon Dioxide 24 mmol/L (22.0-30.0); Creatinine Clearance Estimated 33 mL/min (50-200); Estimated Glomerular Filt Rate 48 ml/min (>60); GFR (African American) 58 ML/MIN (>60); Glucose 135 mg/dl (74-100)
[2024-07-13 07:11] LABS: Hemoglobin 11.5 g/dL (14.1-18.0)
--- NOTE | 2024-07-13 08:02 | HMH.PHAINT1 ---
Pharmacy Intervention Comments: Home medication list verified using list from outpatient pharmacy and talking with patient's
[2024-07-13] MEDS: HYDROCODONE/APAP 5/325 MG TABLET 1 TAB PO (08:31)
--- NOTE | 2024-07-13 08:59 | EXP.ORTH.CON ---
History of Present Illness *Admission Date: 07/12/24 *History of present illness: This is a 88-year-old male with past medical history of inguinal hernia, BPH, chronic diastolic heart failure, status post TAVR who presents to the emergency department today with complaints of mechanical fall. States he was carrying a trash can and tripped over a carpet in the garage and fell landing on his left side. He denies loss of consciousness during the fall. Noted to have left hip deformity upon arrival with EMS. Denies any chest pain or shortness of breath prior to the fall. States that he is being worked up for cardiac clearance for inguinal hernia surgery. Workup revealed left femoral neck fracture displaced Ortho consulted regarding definitive treatment options. [facility] Disclaimer: The information contained in this section may have been updated after the patient was seen, as this information can be updated by other users. Medical History Hernia Chronic heart failure with preserved ejection fraction (HFpEF) Aortic valve disease Cardiac defibrillator in place Hypertension Surgical History (Updated 07/12/24 @ 23:36 by Asiya Marques RN) History of biopsy of bladder Aortic valve replaced AICD (automatic cardioverter/defibrillator) present History of appendectomy Amputation finger Family History Mother Coronary artery disease Heart attack Father Dementia Other Family history of hypertension Social History (Updated 07/12/24 @ 23:36 by Asiya Marques RN) Smoking Status: Former smoker alcohol intake: never current occupational status: retired and other Travel in the last 8 weeks: None Meds Home Medications and Allergies Home Medications ?Medication ?Instructions ?Recorded ?Confirmed ?Type aspirin 81 mg tablet 81 mg PO DAILY 06/24/23 07/12/24 History famotidine 20 mg tablet (Pepcid) 20 mg PO DAILY 06/24/23 07/12/24 History loratadine 10 mg tablet (Claritin) 10 mg PO DAILY 06/24/23 07/12/24 History metoprolol succinate 50 mg 100 mg PO DAILY 06/24/23 07/12/24 History tablet,extended release 24 hr sacubitril 24 mg-valsartan 26 mg 0.5 tab PO BID Heart Failure 06/24/23 07/13/24 History tablet (Entresto) spironolactone 25 mg tablet 12.5 mg PO DAILY 06/24/23 07/12/24 History donepezil 5 mg tablet 5 mg PO HS 05/09/24 07/13/24 History memantine 5 mg tablet 5 mg PO HS 05/09/24 07/13/24 History sertraline 25 mg tablet (Zoloft) 25 mg PO DAILY 05/09/24 07/12/24 History lorazepam 0.5 mg tablet 0.5 mg PO BIDP PRN Anxiety 06/20/24 07/13/24 History oxybutynin chloride 10 mg 10 mg PO DAILY #90 tabs 07/04/24 07/12/24 Rx tablet,extended release 24 hr tamsulosin 0.4 mg capsule (Flomax) 0.4 mg PO HS 07/13/24 07/13/24 History New Prescriptions to Start Prescriptions: Allergies Allergy/AdvReac Type Severity Reaction Status Date / Time ibuprofen Allergy Hives Verified 07/04/24 10:27 Sulfa (Sulfonamide Allergy Hives Verified 07/04/24 10:27 Antibiotics) Ortho Exam (Inpt) Vital signs and Labs for Last 24 Hours: Temp Pulse Resp BP Pulse Ox O2 Del Method 99.2 F 97 H 17 99/52 L 92 L Room Air 07/13/24 08:00 07/13/24 08:00 07/13/24 08:00 07/13/24 08:00 07/13/24 08:00 07/13/24 08:00 Laboratory Results - last 24 hr 07/12/24 22:11: WBC 12.2 H, RBC 3.99 L, Hgb 13.2 L, Hct 39.5 L, MCV 99.1 H, MCH 33.2 H, MCHC 33.4, RDW 14.0, Plt Count 326, MPV 7.0 L, Neut % (Auto) 80.8 H, Lymph % (Auto) 10.6, O'Brien % (Auto) 6.4, Eos % (Auto) 1.3, Baso % (Auto) 0.9, Neut # (Auto) 9.8 H, Lymph # (Auto) 1.3, O'Brien # (Auto) 0.8, Eos # (Auto) 0.2, Baso # (Auto) 0.1, PT 10.9, INR 0.97, APTT 26.7, Sodium 140, Potassium 4.5, Chloride 108 H, Carbon Dioxide 25, Anion Gap 11.5, BUN 36 H, Creatinine 1.60 H, Estimated Creat Clear 30, Estimated GFR 41 L, Est GFR ( Amer) 50 L, Glucose 109 H, Calcium 9.1, Total Bilirubin 0.4, AST 32, ALT 22, Alkaline Phosphatase 74, Total Protein 7.6, Albumin 4.1, Globulin 3.5 H, Albumin/Globulin Ratio 1.2, HIV 1&2 Antibody Rapid Nonreactive, Blood Type O Positive, Antibody Screen Negative 07/13/24 05:20: Urine Color Yellow, Urine Appearance Clear, Urine pH 6.0, Ur Specific [place] 1.025, Urine Protein 1+ A, Urine Glucose (UA) Trace, Urine Ketones Negative, Urine Blood 3+ A, Urine Nitrate Negative, Urine Bilirubin Negative, Urine Urobilinogen 0.2, Ur Leukocyte Esterase Trace, Urine RBC Tntc, Urine WBC 5-10, Ur Squamous Epith Cells 5-10, Urine Bacteria 1+ 07/13/24 06:04: WBC 12.4 H, RBC 3.50 L, Hgb 11.5 L D, Hct 35.1 L, MCV 100.2 H, MCH 32.7 H, MCHC 32.6, RDW 13.9, Plt Count 288, MPV 7.3 L, Neut % (Auto) 84.0 H, Lymph % (Auto) 7.1 L, O'Brien % (Auto) 7.4, Eos % (Auto) 0.8, Baso % (Auto) 0.6, Neut # (Auto) 10.4 H, Lymph # (Auto) 0.9, O'Brien # (Auto) 0.9, Eos # (Auto) 0.1, Baso # (Auto) 0.1, Sodium 138, Potassium 4.2, Chloride 109 H, Carbon Dioxide 24, Anion Gap 9.2, BUN 36 H, Creatinine 1.40 H, Estimated Creat Clear 33, Estimated GFR 48 L, Est GFR ( Amer) 58 L, Glucose 135 H D, Calcium 8.3 L I & O for Labs for Last 24 Hours: Intake & Output 07/10/24 07/11/24 07/12/24 07/13/24 23:59 23:59 23:59 23:59 Intake Total 0 / 0 Output Total 100 / 100 Balance -100 / -100 Weight 140 lb 1.6 oz 140 lb 1.6 oz Head: Present normocephalic and atraumatic Additional findings:: Left hip: Laying in the bed unable to actively move hip secondary to fracture X-rays reveal displaced left femoral neck fracture Results Labs 07/13/24 06:04 07/13/24 06:04 Labs: Abnormal lab results 07/12/24 07/13/24 07/13/24 Range/Units 22:11 05:20 06:04 WBC 12.2 H 12.4 H (4.8-10.8) K/mm3 RBC 3.99 L 3.50 L (4.60-6.20) M/mm3 Hgb 13.2 L 11.5 L D (14.1-18.0) g/dL Hct 39.5 L 35.1 L (42.0-52.0) % MCV 99.1 H 100.2 H (80-94) fl MCH 33.2 H 32.7 H (27.0-31.2) pg MPV 7.0 L 7.3 L (7.4-10.4) fl Neut % (Auto) 80.8 H 84.0 H (37.0-80.0) % Lymph % (Auto) 7.1 L (10-50) % Neut # (Auto) 9.8 H 10.4 H (1.8-7.8) K/mm3 Chloride 108 H 109 H (98-107) mmol/L BUN 36 H 36 H (9-20) mg/dl Creatinine 1.60 H 1.40 H (0.66-1.25) mg/dl Estimated GFR 41 L 48 L (>60) ml/min Est GFR ( Amer) 50 L 58 L (>60) ML/MIN Glucose 109 H 135 H D (74-100) mg/dl Calcium 8.3 L (8.4-10.2) mg/dl Globulin 3.5 H (1.3-3.2) g/dL Urine Protein 1+ A (Negative) Urine Blood 3+ A (Negative) H & H 07/12/24 07/13/24 Range/Units 22:11 06:04 Hgb 13.2 L 11.5 L D (14.1-18.0) g/dL Hct 39.5 L 35.1 L (42.0-52.0) % Coagulation 07/12/24 Range/Units 22:11 INR 0.97 (0.9-1.1) All other labs normal. Assessment and Plan *Assessment and plan (1) Closed left femoral fracture: Status: Acute Qualifiers: Encounter type: initial encounter Femur location: base of neck Fracture alignment: nondisplaced Qualified Code(s): S72.045A - Nondisplaced fracture of base of neck of left femur, initial encounter for closed fracture Category: Medical Code(s): S72.92XA - Unspecified fracture of left femur, initial encounter for closed fracture Plan Given the displaced nature of the femoral neck fracture operative intervention is indicated to allow for early ambulation and weightbearing. Possible need for short period nursing home home rehabilitation following surgical intervention. Patient has cardiology consult for restratification and review of echo. If no contraindications we will proceed with operative intervention this afternoon for hemiarthroplasty left hip PROPOSED SURGERY: Hemiarthroplasty left hip the risks and benefits of the proposed surgery were discussed in depth with the patient. Potential complications including inherent risk of anesthesia, infection, neurovascular damage, DVT, and rare but real potential loss of limb or life were all reviewed. Patient voices understanding and seems to understand to my satisfaction and wishes to proceed with surgery. I gave them adequate time to ask any questions they have pertaining to this surgery and answered all of them to the best of my ability. I gave them no guarantees in regards to outcomes of this surgery.
[2024-07-13] MEDS: 0.9 % SODIUM CHLORIDE 1000ML 500 ML IV (09:33)
--- NOTE | 2024-07-13 11:41 | P.CONCA_ITS ---
History of Present Illness History of Present Illness Consult date: 07/13/24 Requesting physician: Edwardo Carr Consult reason: pre-op evaluation Chief complaint: left leg pain History of present illness: 88-year-old white male admitted for left femoral neck fracture and awaiting orthopedic surgery. We have been consulted for preoperative evaluation. Patient's family is bedside and assisting with history. Patient follows with Dr. Tan at for cardiology. 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 He has never had a hospital admission for heart failure and has baseline NYHA class II symptoms. No orthopnea or lower extremity edema has never occurred for him. He is status post TAVR for severe aortic stenosis also occurred several years ago. Baseline meds include Entresto metoprolol and spironolactone at low doses. EKG here is sinus rhythm, no ischemia or ectopy. Echo is pending. [facility] Disclaimer: The information contained in this section may have been updated after the patient was seen, as this information can be updated by other users. Medical History Hernia Chronic heart failure with preserved ejection fraction (HFpEF) Aortic valve disease Cardiac defibrillator in place Hypertension Surgical History History of biopsy of bladder Aortic valve replaced AICD (automatic cardioverter/defibrillator) present History of appendectomy Amputation finger Family History Mother Coronary artery disease Heart attack Father Dementia Other Family history of hypertension Social History (Updated 07/13/24 @ 12:42 by Salvador Rawls CRNA) Smoking Status: Former smoker alcohol intake: never substance use type: denies use current occupational status: retired and other Travel in the last 8 weeks: None Review of Systems Constitutional Constitutional: Denies fatigue and Denies weakness Eyes Eyes: Denies loss of vision ENT Ears, Nose, Mouth, and Throat: Denies hearing loss and Denies vertigo *Cardiovascular Cardiovascular: Denies chest pain, Denies dyspnea and Denies syncope *Respiratory Respiratory: Denies cough and Denies dyspnea *Gastrointestinal Gastrointestinal: Denies change in stool character, Denies nausea and Denies vomiting *Genitourinary Genitourinary: Denies difficulty urinating *Musculoskeletal Musculoskeletal: Denies muscle weakness Comments: Left leg pain Integumentary/Breasts Skin/Breast: Denies changing lesions *Neurologic Neurologic: Denies loss of vision, Denies syncope, Denies vertigo and Denies weakness Endocrine Endocrine: Denies fatigue Exam Data for Last 24 hours Vital signs and Labs for Last 24 Hours: Temp Pulse Resp BP Pulse Ox O2 Del Method 97.7 F 87 19 98/57 L 92 L Room Air 07/13/24 11:38 07/13/24 11:38 07/13/24 11:38 07/13/24 11:38 07/13/24 11:38 07/13/24 11:38 Laboratory Results - last 24 hr 07/12/24 22:11: WBC 12.2 H, RBC 3.99 L, Hgb 13.2 L, Hct 39.5 L, MCV 99.1 H, MCH 33.2 H, MCHC 33.4, RDW 14.0, Plt Count 326, MPV 7.0 L, Neut % (Auto) 80.8 H, Lymph % (Auto) 10.6, Kerr % (Auto) 6.4, Eos % (Auto) 1.3, Baso % (Auto) 0.9, Neut # (Auto) 9.8 H, Lymph # (Auto) 1.3, Kerr # (Auto) 0.8, Eos # (Auto) 0.2, Ba so # (Auto) 0.1, PT 10.9, INR 0.97, APTT 26.7, Sodium 140, Potassium 4.5, Chloride 108 H, Carbon Dioxide 25, Anion Gap 11.5, BUN 36 H, Creatinine 1.60 H, Estimated Creat Clear 30, Estimated GFR 41 L, Est GFR ( Amer) 50 L, Glucose 109 H, Calcium 9.1, Total Bilirubin 0.4, AST 32, ALT 22, Alkaline Phosphatase 74, Total Protein 7.6, Albumin 4.1, Globulin 3.5 H, Albumin/Globulin Ratio 1.2, HIV 1&2 Antibody Rapid Nonreactive, Blood Type O Positive, Antibody Screen Negative 07/13/24 05:20: Urine Color Yellow, Urine Appearance Clear, Urine pH 6.0, Ur Specific [place] 1.025, Urine Protein 1+ A, Urine Glucose (UA) Trace, Urine Ketones Negative, Urine Blood 3+ A, Urine Nitrate Negative, Urine Bilirubin Negative, Urine Urobilinogen 0.2, Ur Leukocyte Esterase Trace, Urine RBC Tntc, Urine WBC 5-10, Ur Squamous Epith Cells 5-10, Urine Bacteria 1+ 07/13/24 06:04: WBC 12.4 H, RBC 3.50 L, Hgb 11.5 L D, Hct 35.1 L, MCV 100.2 H, MCH 32.7 H, MCHC 32.6, RDW 13.9, Plt Count 288, MPV 7.3 L, Neut % (Auto) 84.0 H, Lymph % (Auto) 7.1 L, Kerr % (Auto) 7.4, Eos % (Auto) 0.8, Baso % (Auto) 0.6, Neut # (Auto) 10.4 H, Lymph # (Auto) 0.9, Kerr # (Auto) 0.9, Eos # (Auto) 0.1, Baso # (Auto) 0.1, Sodium 138, Potassium 4.2, Chloride 109 H, Carbon Dioxide 24, Anion Gap 9.2, BUN 36 H, Creatinine 1.40 H, Estimated Creat Clear 33, Estimated GFR 48 L, Est GFR ( Amer) 58 L, Glucose 135 H D, Calcium 8.3 L I & O for Last 24 hours: Intake & Output 07/10/24 07/11/24 07/12/24 07/13/24 23:59 23:59 23:59 23:59 Intake Total 50 / 50 Output Total 425 / 425 Balance -375 / -375 Weight 140 lb 1.6 oz 140 lb 1.6 oz Constitutional Constitutional: no acute distress and cooperative *Routine HEENT Exam Eye: Present PERRL *Routine Respiratory Exam Respiratory: Present CTA bilaterally; Absent accessory muscle use, wheezes or crackles *Routine Cardiovascular Exam Cardiovascular: Present RRR, Normal S1 and Normal S2; Absent murmur, gallop or rubs Comments: ICD noted left chest *Routine Abdominal Exam Abdominal: Present soft; Absent tenderness *Routine Extremities Exam Extremities: Present pulses intact; Absent cyanosis or edema *Routine Skin Exam Skin: Present intact; Absent erythema or wounds *Routine Neurological Exam Neurological: Present alert and oriented X3 Routine Psychiatric Exam Psychiatric: Present cooperative Meds Home Medications and Allergies Home Medications ?Medication ?Instructions ?Recorded ?Confirmed ?Type aspirin 81 mg tablet 81 mg PO DAILY 06/24/23 07/12/24 History famotidine 20 mg tablet (Pepcid) 20 mg PO DAILY 06/24/23 07/12/24 History loratadine 10 mg tablet (Claritin) 10 mg PO DAILY 06/24/23 07/12/24 History metoprolol succinate 50 mg 100 mg PO DAILY 06/24/23 07/12/24 History tablet,extended release 24 hr sacubitril 24 mg-valsartan 26 mg 0.5 tab PO BID Heart Failure 06/24/23 07/13/24 History tablet (Entresto) spironolactone 25 mg tablet 12.5 mg PO DAILY 06/24/23 07/12/24 History donepezil 5 mg tablet 5 mg PO HS 05/09/24 07/13/24 History memantine 5 mg tablet 5 mg PO HS 05/09/24 07/13/24 History sertraline 25 mg tablet (Zoloft) 25 mg PO DAILY 05/09/24 07/12/24 History lorazepam 0.5 mg tablet 0.5 mg PO BIDP PRN Anxiety 06/20/24 07/13/24 History oxybutynin chloride 10 mg 10 mg PO DAILY #90 tabs 07/04/24 07/12/24 Rx tablet,extended release 24 hr tamsulosin 0.4 mg capsule (Flomax) 0.4 mg PO HS 07/13/24 07/13/24 History New Prescriptions to Start Prescriptions: Allergies Allergy/AdvReac Type Severity Reaction Status Date / Time ibuprofen Allergy Hives Verified 07/04/24 10:27 Sulfa (Sulfonamide Allergy Hives Verified 07/04/24 10:27 Antibiotics) Assessment and Plan *Assessment and plan (1) Preoperative evaluation to rule out surgical contraindication: Status: Acute Category: Medical Code(s): Z01.818 - Encounter for other preprocedural examination (2) HFrEF (heart failure with reduced ejection fraction): Status: Acute Category: Medical Code(s): I50.20 - Unspecified systolic (congestive) heart failure (3) S/P TAVR (transcatheter aortic valve replacement): Status: Acute Category: Surgical Code(s): Z95.2 - Presence of prosthetic heart valve (4) Closed left femoral fracture: Status: Acute Qualifiers: Encounter type: initial encounter Femur location: base of neck Fracture alignment: nondisplaced Qualified Code(s): S72.045A - Nondisplaced fracture of base of neck of left femur, initial encounter for closed fracture Category: Medical Code(s): S72.92XA - Unspecified fracture of left femur, initial encounter for closed fracture Plan Pre-Op Assessment - pt has chronic stable HFimpEF s/p ICD and TAVR - he has never had hospitalization for HF and has baseline NYHA = 2 functional status - forgoing surgery for femoral neck fracture would significantly increase half-way morbidity and mortality which was discussed with pt/family and they are agreeable - we recommend cautious fluid administration given his history of heart failure, monitor for volume overload - pt needs telemetry monitoring post operatively - please call if any needs arise HFimpEF, NIDCM s/p ICD - established and well controlled for 3-4 years - ECHO here shows normal EF. Unsure of prior EF when ICD was placed. - presumed secondary to prior severe Aortic Stenosis, no history of ischemic disease - continue home GDMT as tolerated here s/p TAVR - secondary to severe aortic stenosis - ECHO here shows TAVR is well seated with only trace paravalvular leak and acceptable parameters. Left Femoral Neck Fracture - per Orthopedics ECHO Results: Conclusion Normal LV systolic function. Mild RV dilation with mild reduction in RV function. s/p TAVR. Prosthesis is well-seated. Trace paravalvular leak. Acceptable transaortic parameters (peak velocity 1.1 m/s. Mean AV gradient 2 mmHg. Max AV gradient 4 mmHg). Mild TR. RVSP 30-35 mmHg.
--- NOTE | 2024-07-13 12:38 | P.PNANES_ITS ---
[facility] Disclaimer: The information contained in this section may have been updated after the patient was seen, as this information can be updated by other users. Medical History Hernia Chronic heart failure with preserved ejection fraction (HFpEF) Aortic valve disease Cardiac defibrillator in place Hypertension Surgical History History of biopsy of bladder Aortic valve replaced AICD (automatic cardioverter/defibrillator) present History of appendectomy Amputation finger Family History Mother Coronary artery disease Heart attack Father Dementia Other Family history of hypertension Social History Smoking Status: Former smoker alcohol intake: never substance use type: denies use current occupational status: retired and other Travel in the last 8 weeks: None [facility] Anesthesia Checklist Patient Identification Patient Identification: Arm Band and Family Structural Data Admitted From: Inpatient Planned Operative Procedure/s: Left hip hemirthropasty. Consent for Planned Operative Procedure(s) Verified: Yes Verified Documents: Surgical Consent and History and Physical NPO Status Verified Time NPO: 00:00 Additional verifications Patient : No Anesthesia Reactions: No Hx Blood Transfusions: No Blood Transfusion Reaction: No Cephalosporin Allergy: No Previous Colonoscopy: No Airway Assessment Mallampati Score:: Class II C-Spine Mobility Assessed: Yes TMJ Mobility Assessed: Yes Dentition: Edentulous Neurological Assessment Level of Consciousness: Awake, Alert, Appropriate and Follows Commands Hx Seizures: No Numbness or tingling in extremities: No Anesthesia Plan Anesthesia Risk discussed: Yes ASA Class: III Anesthesia Type: MAC w/Spinal Preoperative Comments Pre-Operative Comments: Pace maker. Mild cardiomegaly. Aortic valve replacement. Borderline diabetic. Prostate enlargement. Advanced age.
[2024-07-13] MEDS: CEFAZOLIN 1GM VIAL 1 GM (13:18)
[2024-07-13] MEDS: 0.9 % SODIUM CHLORIDE 100 ML IV (13:18)
--- NOTE | 2024-07-13 15:58 | EXP.OP.NOTE ---
Date of procedure: 07/13/24 Pre-op Diagnosis:: Left displaced femoral neck fracture Post-op Diagnosis:: Same Procedure performed:: Hemiarthroplasty left hip Surgeon:: Nghia Baptiste DO Etl Bi Developer(s):: Sergio JAIMES MACHINING SUPERVISOR:: Yefri Rawls Anesthesia: spinal Estimated blood loss (mL): 100 Clinical Note:: Implants DePuy size 13 stem standard neck +1.5 head with 51 mm bipolar head Operative findings:: Displaced femoral neck fracture Operative note:: Patient was identified preoperatively. Left hip marked with yes my initials. Taken the operating room. Placed on his side and given spinal anesthesia. Then placed in the operating table in the lateral position with left hip up all bony prominences well-padded hip medina in place to stabilize the pelvis left hip was then prepped and draped normal sterile fashion. Once prepped and draped final operative timeout performed to identify proper patient procedure and extremity. Everyone involved in the case agreed. There is no counter indications to beginning. Did receive preoperative antibiotics. Marking pen was used to deandre plan incision over the lateral aspect of the hip. Skin knife was used incise through skin dissection was taken down the IT band which was cut in line with the femur Charnley retractor was placed. This exposed the abductors to the hip. Using a standard abductor peel exposure of the capsule was performed abductors were placed anteriorly and the Charnley for future repair. I cut the capsule in line with the neck to expose the fracture hematoma which was evacuated. Capsule was cut in a T like fashion off of the neck. There is a displaced femoral neck fracture present. Cleanup cut was performed of the femur. Attention was then brought to retrieval of the fractured femoral head. There was comminution at the femoral neck which was removed in piecemeal and the femoral head was removed and sized to a size 51. The acetabulum was cleaned and irrigated for any debris. Attention was then brought to the femur. Leg was brought anteriorly within the bag femoral neck was exposed. Lateralizing cutting broach was utilized followed by the canal finding broach. Followed by the 0 lateralizing broach. Then I subsequently broached the femur from size 8 to up to 13 the 13 broach gave good fit and fill and was stable within the canal. Size 13 stem was then opened with standard neck Irrigation performed size 13 stem was impacted into place the +1.5 head 51 bipolar was impacted in place and the hip was reduced. Hip was taken through range of motion with flexion extension internal and external rotation found to be stable. Irrigation repeated. The capsule was closed with 0 Vicryl stitch. The abductor peel was repaired with #5 Ethibond stitches. IT band closed with a running strata fix suture. Deep layers closed with 0 Vicryl subcutaneous with 2-0 Vicryl surgical clips in the skin for closure. Sterile dressing placed and patient placed back on the hospital bed taken recovery in stable condition Condition: stable Disposition: PACU Complications:: None apparent
--- NOTE | 2024-07-13 16:08 | XR_ITS ---
PROCEDURE INFORMATION: Exam: XR Pelvis Exam date and time: 07/13/2024 4:14 PM Age: 88 years old Clinical indication: Device placement; Other: Left hip hemiarthroplasty; Prior surgery; Surgery date: Post-operative (0-2 days); Additional info: S/P left hip hemiarthroplasty TECHNIQUE: Imaging protocol: Radiologic exam of the pelvis. Views: 1 or 2 view. COMPARISON: CT BONY PELVIS 07/12/2024 9:46 PM FINDINGS: Bones/joints: Status post left hip arthroplasty with surgical skin chi in place. There is diffuse degenerative disease of the visualized osseous structures. Soft tissues: Soft tissue gas and swelling is noted. IMPRESSION: Early postoperative changes without acute abnormality.
--- NOTE | 2024-07-13 16:13 | P.PNANES_ITS ---
[facility] Anesthesia Record Part I Anesthesia Record I Intake, IV Amount: 1,100 Hydration: Adequate Estimated blood loss (mL): 100 Urine output (mL): 0 Blood Products used (#): none Blood Pressure: 98/53 SaO2: 94 Pulse Rate: 82 Airway Patency: Patent Respiratory Rate: 14 Temperature: 98.7 F Patient is:: Drowsy and Stable Stable to PACU at:: 16:10
[2024-07-13] MEDS: HYDROCODONE/APAP 5/325 MG TABLET 2 TAB PO (17:34)
--- NOTE | 2024-07-13 17:50 | P.PN_ITS ---
Subjective *Date: 07/13/24 *Time: 22:33 Interval history: Evaluated patient after surgery, was a little sedated and cold after surgery. No other complaints at this addy. Exam Data for Last 24 hours Vital signs and Labs for Last 24 Hours: Temp Pulse Resp BP Pulse Ox O2 Del Method O2 Flow Rate 98.7 F 69 16 100/52 L 93 L Room Air 3 07/13/24 16:15 07/13/24 16:40 07/13/24 16:40 07/13/24 16:40 07/13/24 16:40 07/13/24 16:40 07/13/24 16:10 Laboratory Results - last 24 hr 07/12/24 22:11: WBC 12.2 H, RBC 3.99 L, Hgb 13.2 L, Hct 39.5 L, MCV 99.1 H, MCH 33.2 H, MCHC 33.4, RDW 14.0, Plt Count 326, MPV 7.0 L, Neut % (Auto) 80.8 H, Lymph % (Auto) 10.6, [place] % (Auto) 6.4, Eos % (Auto) 1.3, Baso % (Auto) 0.9, Neut # (Auto) 9.8 H, Lymph # (Auto) 1.3, [place] # (Auto) 0.8, Eos # (Auto) 0.2, Baso # (Auto) 0.1, PT 10.9, INR 0.97, APTT 26.7, Sodium 140, Potassium 4.5, Chloride 108 H, Carbon Dioxide 25, Anion Gap 11.5, BUN 36 H, Creatinine 1.60 H, Estimated Creat Clear 30, Estimated GFR 41 L, Est GFR ( Amer) 50 L, Glucose 109 H, Calcium 9.1, Total Bilirubin 0.4, AST 32, ALT 22, Alkaline Phosphatase 74, Total Protein 7.6, Albumin 4.1, Globulin 3.5 H, Albumin/Globulin Ratio 1.2, HIV 1&2 Antibody Rapid Nonreactive, Blood Type O Positive, Antibody Screen Negative 07/13/24 05:20: Urine Color Yellow, Urine Appearance Clear, Urine pH 6.0, Ur Specific [place] 1.025, Urine Protein 1+ A, Urine Glucose (UA) Trace, Urine Ketones Negative, Urine Blood 3+ A, Urine Nitrate Negative, Urine Bilirubin Negative, Urine Urobilinogen 0.2, Ur Leukocyte Esterase Trace, Urine RBC Tntc, Urine WBC 5-10, Ur Squamous Epith Cells 5-10, Urine Bacteria 1+ 07/13/24 06:04: WBC 12.4 H, RBC 3.50 L, Hgb 11.5 L D, Hct 35.1 L, MCV 100.2 H, MCH 32.7 H, MCHC 32.6, RDW 13.9, Plt Count 288, MPV 7.3 L, Neut % (Auto) 84.0 H, Lymph % (Auto) 7.1 L, [place] % (Auto) 7.4, Eos % (Auto) 0.8, Baso % (Auto) 0.6, Neut # (Auto) 10.4 H, Lymph # (Auto) 0.9, [place] # (Auto) 0.9, Eos # (Auto) 0.1, Baso # (Auto) 0.1, Sodium 138, Potassium 4.2, Chloride 109 H, Carbon Dioxide 24, Anion Gap 9.2, BUN 36 H, Creatinine 1.40 H, Estimated Creat Clear 33, Estimated GFR 48 L, Est GFR ( Amer) 58 L, Glucose 135 H D, Calcium 8.3 L I & O for Last 24 hours: Intake & Output 07/10/24 07/11/24 07/12/24 07/13/24 23:59 23:59 23:59 23:59 Intake Total 1150 / 1150 Output Total 425 / 425 Balance 725 / 725 Weight 63.548 kg 63.548 kg Constitutional Constitutional: no acute distress *Routine HEENT Exam Head: Present normocephalic Eye: Present EOMI and PERRL ENT: Present mucous membranes moist *Routine Neck Exam Neck: Present supple; Absent lymphadenopathy *Routine Respiratory Exam Respiratory: Present CTA bilaterally *Routine Cardiovascular Exam Cardiovascular: Present RRR *Routine Abdominal Exam Abdominal: Present soft and normoactive bowel sounds; Absent tenderness *Routine Extremities Exam Extremities: Absent cyanosis, clubbing or edema *Routine Skin Exam Skin: Present warm; Absent rash *Routine Neurological Exam Neurological: Present alert Assessment and Plan *Assessment and plan (1) Closed left femoral fracture: Status: Acute Qualifiers: Encounter type: initial encounter Femur location: base of neck Fracture alignment: nondisplaced Qualified Code(s): S72.045A - Nondisplaced fracture of base of neck of left femur, initial encounter for closed fracture Category: Medical Code(s): S72.92XA - Unspecified fracture of left femur, initial encounter for closed fracture (2) Inguinal hernia of left side without obstruction or gangrene: Status: Acute Category: Medical Code(s): K40.90 - Unilateral inguinal hernia, without obstruction or gangrene, not specified as recurrent (3) Chronic heart failure with preserved ejection fraction (HFpEF): Status: Acute Category: Medical Code(s): I50.32 - Chronic diastolic (congestive) heart failure Plan #Left femoral neck fracture After mechanical fall. Cardiac preoperative assesment revealed low risk for complications. Dr. Baptiste with orthopedics consulted. S/p Left hip hemiarthroplasty. ASA 325mg BID for DVT prophylaxis. Will speak to Dr. Baptiste tomorrow regarding weight bearing status and PT. Will give 500ml bolus given soft pressures, tachycardia. #History of chronic heart failure and status post TAVR Stable, euvolemic. Cardiolog consulted, agrees. #Inguinal hernia Noted on CT imaging. Stable Patient reports will be undergoing elective surgery once able #Cognitive impairment Continue home memantine and sertraline as needed
--- NOTE | 2024-07-13 19:16 | PC.NURSE ---
Alert and oriented, intermittently confusion, easily reoriented. Complained of pain 1 time, treated per nov. pt had left hep surgery this shift and has been resting since. vitals stable. dressing c/d/i. abel draining clear yellow urine. family at bedside.. SCDs applied. Bed alarm on. Call light in reach.
[2024-07-13] MEDS: MORPHINE 2MG/ML SYRINGE 2 MG IV (20:26)
[2024-07-13] MEDS: ASPIRIN 325MG TABLET 325 MG PO (20:26)
[2024-07-13] MEDS: CEFAZOLIN SODIUM 2 GM in 0.9 % SODIUM CHLORIDE 100 ML IV (20:27)
[2024-07-13] MEDS: ACETAMINOPHEN 325MG TAB 650 MG PO (20:45)
[2024-07-14] VITALS (8 sets, daily range): BP systolic 90–118; BP diastolic 40–53; PULSE 69–96; RESP 16–17; TEMP 36.4–37.1; O2SAT 91–98; BMI 22.9
[2024-07-14] MEDS: 0.9 % SODIUM CHLORIDE 1000ML 500 ML IV (00:02)
[2024-07-14] MEDS: 0.9 % SODIUM CHLORIDE 1000ML 500 ML 999 ML IV (01:20)
[2024-07-14 01:34] LABS: Basophils # 0.1 K/mm3 (0-0.2); Basophils % 0.8 % (0.1-2.0); Eosinophils % 0.3 % (0.1-12.0); Hematocrit 31.1 % (42.0-52.0); Lymphocytes # 0.8 K/mm3 (0.7-4.5); Lymphocytes % 7.9 % (10-50); Mean Corpuscular HGB Conc 32.3 g/dL (31.8-35.4); Mean Corpuscular Volume 99.2 fl (80-94); Mean Platelet Volume 7.6 fl (7.4-10.4); Monocytes # 0.8 K/mm3 (0.1-1.0); Monocytes % 7.7 % (1.7-9.3); Neutrophils # 8.5 K/mm3 (1.8-7.8); Neutrophils % 83.3 % (37.0-80.0); Platelet Count 220 K/mm3 (142-424); Red Blood Count 3.13 M/mm3 (4.60-6.20); Red Cell Distribution Width 14.1 % (11.5-17.5); White Blood Count 10.1 K/mm3 (4.8-10.8)
[2024-07-14 01:39] LABS: Hemoglobin 10.1 g/dL (14.1-18.0)
[2024-07-14] MEDS: CEFAZOLIN SODIUM 2 GM in 0.9 % SODIUM CHLORIDE 100 ML IV (01:48)
--- NOTE | 2024-07-14 02:33 | PC.NURSE ---
At approximately midnight, SRNA notified me of patients low blood pressure of 90/48. I rechecked manually and got 88/46 in JOHN with a MAP of 56. 0005- Administered 500ml of NS at 500mls/hr. 0110- Rechecked patients blood pressure in multiple locations and multiple times and still getting several low blood pressure readings 0119- Called hospitalist to notify of low blood pressure. Received orders for 500ml NS bolus and stat CBC 0120- 500ml NS bolus infusing 0144- 106/54, HR 79, MAP 73 0155- 100/50, HR 80, MAP 68 0225- 104/52, HR 76, MAP 71 Patient alert and oriented x4, resting comfortably in bed, no pain from surgery, no needs or complaints expressed.
[2024-07-14 06:14] LABS: HCV Ab Non Reactive (Non Reactive)
[2024-07-14] MEDS: HYDROCODONE/APAP 5/325 MG TABLET 2 TAB PO ×2 (07:49→21:38)
--- NOTE | 2024-07-14 08:36 | P.PNANES_ITS ---
[facility] Anesthesia Record Part II Anesthesia Record Part II Discharge Time: 16:40 Destination: Medical Surgical Department PACU nurse assessment reviewed?: Yes Patient Condition:: Good Anesthesia Complications:: None Swallowing reflex intact?: Yes Airway Patency: Patent Cyanosis?: No Blood Pressure: 100/52 SaO2: 93 Respiratory Rate: 16 Pulse Rate: 69 Temperature: 98.1 F Mental Status: Alert & Oriented Pain level:: 0 Nausea and/or vomitting:: None Intake, IV Amount: 0 Hydration: Adequate
--- NOTE | 2024-07-14 09:04 | EXP.SURG.PN ---
Subjective Narrative: Lying comfortably in bed, denies complaints of pain in his hip, headache, chest pain, SOB, N/V, calf pain, paresthesias. + abel. Exam Data for Last 24 hours Vital signs and Labs for Last 24 Hours: Temp Pulse Resp BP Pulse Ox O2 Del Method O2 Flow Rate 97.5 F L 83 16 100/49 L 91 L Nasal Cannula 1 07/14/24 08:00 07/14/24 08:00 07/14/24 08:38 07/14/24 08:00 07/14/24 08:00 07/14/24 06:38 07/14/24 06:38 Laboratory Results - last 24 hr 07/12/24 22:11: Hepatitis C Antibody Non reactive 07/14/24 01:30: WBC 10.1, RBC 3.13 L, Hgb 10.1 L D, Hct 31.1 L, MCV 99.2 H, MCH 32.0 H, MCHC 32.3, RDW 14.1, Plt Count 220, MPV 7.6, Neut % (Auto) 83.3 H, Lymph % (Auto) 7.9 L, [place] % (Auto) 7.7, Eos % (Auto) 0.3, Baso % (Auto) 0.8, Neut # (Auto) 8.5 H, Lymph # (Auto) 0.8, [place] # (Auto) 0.8, Eos # (Auto) 0.0, Baso # (Auto) 0.1 I & O for Last 24 hours: Intake & Output 07/11/24 07/12/24 07/13/24 07/14/24 23:59 23:59 23:59 23:59 Intake Total 1150 / 1150 360 / 360 Output Total 850 / 850 250 / 250 Balance 300 / 300 110 / 110 Weight 63.548 kg 63.548 kg 66.315 kg Detailed Lower Extremity Exam Comments: L hip: Dressing C/D/I. Thigh and calves Soft, calves nontender. SCDs in place on R calf. SILT 1st DWS/PA. +EHL/FHL/GS/TA. +2 DP. Progress Note: A&P Assessment and plan (1) Closed left femoral fracture: Status: Acute Assessment and plan: PT/OT: WBAT to LLE with PHP in place at all times. Ice, pain medication PRN pain. DVT ppx with ASA 325 mg BID x [address] Baptiste. Further care per medical team. DC planning pending PT recommendations. (2) Inguinal hernia of left side without obstruction or gangrene: Status: Acute (3) Chronic heart failure with preserved ejection fraction (HFpEF): Status: Acute
--- NOTE | 2024-07-14 09:13 | SW/DCPLANNER ---
Addendum entered by Anne-Marie Lexington 07/15/24 11:03: Patient will discharge to [facility] today. Addendum entered by [facility] 07/15/24 08:34: Per Maya patient has been approved for SNF level of care. Addendum entered by [facility] 07/14/24 11:18: Maya w/ [facility] stated that she can accept this patient pending precert. Precert will be started today. Addendum entered by [facility] 07/14/24 10:17: Patient/family are agreeable to placement at [facility] at this time. Information has been faxed. Per patient/ if [facility] can not accept they would be agreeable to [facility]. I will continue to follow up w/ MD, patient/ and facilities. Original Note: I spoke w/ patient and this AM regarding plans once medically stable for discharge. PT/OT is ordered to evaluate patient this AM. I explained different discharge options to patient/ including placement vs home w/ home health. Once PT/OT evaluation is completed I will revisit w/ patient/ and further discuss discharge plans. Discharge date is unknown at this time.
[2024-07-14] MEDS: ASPIRIN 325MG TABLET 325 MG PO ×2 (10:16→20:11)
[2024-07-14] MEDS: CEFTRIAXONE 1 GM 1 GM in 0.9 % SODIUM CHLORIDE 50 ML IV (10:16)
[2024-07-14] MEDS: OXYBUTYNIN 5MG TAB 5 MG PO ×2 (10:16→20:11)
[2024-07-14] MEDS: SERTRALINE 50MG TABLET 25 MG PO (10:29)
--- NOTE | 2024-07-14 10:29 | HMH.PTEV ---
Physical Therapy Evaluation Rehab PT IP Evaluation Start: 07/13/24 16:04 Freq: ONCE Status: Active Protocol: Document 07/14/24 09:51 GHANSHYAM (Rec: 07/14/24 10:28 PHOCORNELIUS [id number]) Subjective/History History History Pt is an 88-year-old male who presents s/p 1 day L hip hemiarthroplasty. Pt is accompanied by his at bedside who assists with some history. Pt reports he lives in a single story home w/ a basement, however, states he does not go downstairs to the basement. No other stairs reported in house. Pt was previously independent in all ADLs and denies previously using an assistive device. Subjective Subjective Pt presents supine in bed w/ wedge between legs, SCD on L LE, nasal cannula O2 delivery, and w/ at bedside. Pt is awake and oriented x3 this morning. Pt reports pain in the L hip during bed mobility and transfers. New diagnosis of cancer in past 12 No months? Rehab PT IP Eval Objective Appearance Patient Behavior Appropriate,Cooperative Patient Orientation Person,Place,Birthday Difficulty following instructions none Speech Pattern Clear,Appropriate,Coherent Balance Ability to Arise Unable Sitting Balance Steady, safe Standing Balance Unsteady Dynamic Sitting Balance Ability Good Dynamic Standing Balance Ability Poor Transfers Bed Transfer Ability Moderate x 2 (50% assist) Chair Transfer Ability Moderate x 2 (50% assist) Sit to Stand Bed Transfer Ability Maximum x 2 (75% assist) Rehab PT IP prob,goals,plan Problems Date of Evaluation: 07/14/24 PT IP Problems Bed Mobility,Transfers,Gait, Balance,Self care,Safety Rehab Potential Rehab Potential Good Equipment Needs Assistive Devices Rolling / Wheeled Walker Plan PT Intervention Plan Bed Mobility,Transfers,Gait, Balance,Safety,Therapeutic Exercise PT Plan Frequency BID Duration LOS Discharge Goals Bed Transfer Ability Minimal x 2 (25% assist) Sit to Stand Chair Transfer Ability Moderate x 2 (50% assist) Ambulation Assistive Device Rolling Walker Ambulation Distance (feet) 10 Discharge Plan PT Discharge Plan Currently, pt is most appropriate for short term rehab placement once medically stable for d/c. Pt demonstrates poor static and dynamic standing balance and increased pain w/ weight bearing. Bed to chair transfer required mod assist x2 w/ continuous verbal cues for patient feet positioning and walker use. Eval Complexity Eval Charge Codes 53039 - High Complexity PHYSICIAN CERTIFICATION: I certify the specified therapy services for Rah Floyd are required, authorized, and reviewed every 30 days.
--- NOTE | 2024-07-14 11:15 | HMH.OTEV ---
OT Inpatient Evaluation Rehab OT IP Evaluation Start: 07/13/24 16:04 Freq: ONCE Status: Active Protocol: Document 07/14/24 11:04 RACHPROMISE (Rec: 07/14/24 11:15 MED [id number]) Rehab OT IP Assessment Subjective History 88-year-old male with past medical history of inguinal hernia, BPH, chronic diastolic heart failure, status post TAVR who presents to the emergency department today with complaints of mechanical fall. States he was carrying a trash can and tripped over a carpet in the garage and fell landing on his left side. He denies loss of consciousness during the fall. Noted to have left hip deformity upon arrival with EMS. Denies any chest pain or shortness of breath prior to the fall. States that he is being worked up for cardiac clearance for inguinal hernia surgery. Emergency department workup notable for left femoral neck fracture. All of the traumagram is negative. CKD noted with a creatinine of 1.6 , other labs unremarkable. He is admitted to hospital service. Ortho was consulted, he will be made NPO. Patient underwent a closed left femoral fracture: PT/OT: WBAT to LLE with PHP in place at all times. Subjective I can try to get up. Instructed Patient on proper hand and foot placement to complete bed mobility from supine->sit @ EOB ->SPT to recliner requiring Max A x2 with extended time. Left patient sitting upright in chair with needs met at end of session. Objective Patient Orientation Person,Name,Age,Birthday,Year Right Upper Extremity Gross ROM WFL Left Upper Extremity Gross ROM WFL Bed Mobility bed mobility - supine/sit Assist Level Maximum x 2 (75% assist) Transfer Training Sit/Stand/Pivot Transfer Assist Level Maximum x 2 (75% assist) Chair Transfer Ability Maximum x 2 (75% assist) Chair Transfer Technique Stand Step Pivot Commode/Toilet Transfer Technique Stand Step Pivot Rehab OT IP prob,goals,plan Problems Date of Evaluation: 07/14/24 OT IP Problems Bed Mobility,Transfers,Balance ,Self care,Safety Rehab Potential Rehab Potential Good Equipment Needs Assistive Devices Rolling / Wheeled Walker Plan OT intervention Plan Bed Mobility,Transfers,Balance ,Self care,Safety,Therapeutic Exercise OT Plan Frequency Daily Duration LOS Discharge Goals Bed Mobility Ability Assistance x2 Sit to Stand Chair Transfer Ability Maximum x 2 (75% assist) Chair Transfer Ability Maximum x 2 (75% assist) Chair Transfer Technique Sit to/from Ambulatory Chair Transfer Assistive Devices Rolling Walker Discharge Plan OT Discharge Plan Recommend placement at this time. Patient will require 24/ nursing and rehab care prior to returning home. Eval Complexity Eval Charge Codes 53581 - Low Complexity PHYSICIAN CERTIFICATION: I certify the specified therapy services for Rah Floyd are required, authorized, and reviewed every 30 days.
[2024-07-14] MEDS: 0.9 % SODIUM CHLORIDE 1000ML 1,000 ML 500 ML IV (11:43)
--- NOTE | 2024-07-14 12:19 | PC.NURSE ---
abel d/c at 1140. pt tolerated well. small amount of dried blood noted to his penis. pt does not complain of pain or tenderness in the area.
--- NOTE | 2024-07-14 13:07 | XR_ITS ---
PROCEDURE INFORMATION: Exam: XR Chest Exam date and time: 07/14/2024 1:48 PM Age: 88 years old Clinical indication: Fever; Additional info: Low grade fever, post surgery TECHNIQUE: Imaging protocol: Radiologic exam of the chest. Views: 1 view. COMPARISON: CR XR CHEST PORTABLE 07/12/2024 11:13 PM FINDINGS: Tubes, catheters and devices: Left-sided cardiac device and single lead wire are radiographically intact. Lungs: No airspace consolidation or nodules. Coarse interstitial opacities in the lower halves of both lungs are unchanged. No confluent airspace consolidation. Low lung volumes. Pleural spaces: No pleural effusion. No pneumothorax. Heart/Mediastinum: No abnormalities. No cardiomegaly. No pulmonary vascular congestion. Bones/joints: No fractures or bone lesions. IMPRESSION: No acute findings in the chest. Low lung volumes.
[2024-07-14] MEDS: HYDROCODONE/APAP 5/325 MG TABLET 1 TAB PO (13:20)
--- NOTE | 2024-07-14 14:51 | P.PN_ITS ---
Subjective *Date: 07/14/24 *Time: 14:51 Interval history: Patient is doing well, working with physical therapy. Tolerating diet. Exam Data for Last 24 hours Vital signs and Labs for Last 24 Hours: Temp Pulse Resp BP Pulse Ox O2 Del Method O2 Flow Rate 98.1 F 83 16 101/53 L 96 Room Air 1 07/14/24 12:00 07/14/24 12:00 07/14/24 12:00 07/14/24 12:00 07/14/24 12:00 07/14/24 13:00 07/14/24 06:38 Laboratory Results - last 24 hr 07/12/24 22:11: Hepatitis C Antibody Non reactive 07/14/24 01:30: WBC 10.1, RBC 3.13 L, Hgb 10.1 L D, Hct 31.1 L, MCV 99.2 H, MCH 32.0 H, MCHC 32.3, RDW 14.1, Plt Count 220, MPV 7.6, Neut % (Auto) 83.3 H, Lymph % (Auto) 7.9 L, [place] % (Auto) 7.7, Eos % (Auto) 0.3, Baso % (Auto) 0.8, Neut # (Auto) 8.5 H, Lymph # (Auto) 0.8, [place] # (Auto) 0.8, Eos # (Auto) 0.0, Baso # (Auto) 0.1 I & O for Last 24 hours: Intake & Output 07/11/24 07/12/24 07/13/24 07/14/24 23:59 23:59 23:59 23:59 Intake Total 1150 / 1150 840 / 840 Output Total 850 / 850 250 / 250 Balance 300 / 300 590 / 590 Weight 63.548 kg 63.548 kg 66.315 kg Constitutional Constitutional: no acute distress *Routine HEENT Exam Head: Present normocephalic Eye: Present EOMI and PERRL ENT: Present mucous membranes moist *Routine Neck Exam Neck: Present supple; Absent lymphadenopathy *Routine Respiratory Exam Respiratory: Present CTA bilaterally *Routine Cardiovascular Exam Cardiovascular: Present RRR *Routine Abdominal Exam Abdominal: Present soft and normoactive bowel sounds; Absent tenderness *Routine Extremities Exam Extremities: Absent cyanosis, clubbing or edema *Routine Skin Exam Skin: Present warm; Absent rash *Routine Neurological Exam Neurological: Present alert and oriented X3 Detailed Lower Extremity Exam Comments: L hip: Dressing C/D/I. Thigh and calves Soft, calves nontender. SCDs in place on R calf. SILT 1st DWS/PA. +EHL/FHL/GS/TA. +2 DP. Assessment and Plan *Assessment and plan (1) Closed left femoral fracture: Status: Acute Qualifiers: Encounter type: initial encounter Femur location: base of neck Fract ure alignment: nondisplaced Qualified Code(s): S72.045A - Nondisplaced fracture of base of neck of left femur, initial encounter for closed fracture Category: Medical Code(s): S72.92XA - Unspecified fracture of left femur, initial encounter for closed fracture (2) Inguinal hernia of left side without obstruction or gangrene: Status: Acute Category: Medical Code(s): K40.90 - Unilateral inguinal hernia, without obstruction or gangrene, not specified as recurrent (3) Chronic heart failure with preserved ejection fraction (HFpEF): Status: Acute Category: Medical Code(s): I50.32 - Chronic diastolic (congestive) heart failure Plan #Left femoral neck fracture After mechanical fall. Cardiac preoperative assessment revealed low risk for complications. Dr. Baptiste with orthopedics consulted. 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 Patient is doing well today, working with physical therapy. Orthopedic surgery recommendations: - PT/OT: WBAT to LLE with PHP in place at all times. - Ice, pain medication PRN pain. - DVT ppx with ASA 325 mg BID x [address] Baptiste. Physical therapy recommended SNF. Case management assisting, pending placement. #Fever Patient's blood pressure today improved after giving an additional 500 mL bolus. Initially in the 90s, now in the 100s. ? Patient did have a low-grade fever of 100.2 Fahrenheit overnight, CXR did not show acute findings. No leukocytosis. ? UA suggestive of UTI, started ceftriaxone. Follow-up urine cultures. ? Follow-up viral respiratory panel. #History of chronic heart failure and status post TAVR Stable, euvolemic. Cardiology consulted, agrees. #Inguinal hernia Noted on CT imaging. Stable Patient reports will be undergoing elective surgery once able #Cognitive impairment Continue home memantine and sertraline as needed
--- NOTE | 2024-07-14 18:17 | PC.NURSE ---
Alert and oriented, intermittently confusion, easily reoriented. Complained of numerous times this shift, treated per nov. dressing to left hip c/d/i. abel d/c this shift and pt has urinated since. PT helped pt sit up to the chair for a few hours. pt has had a good appetite. bp has remained soft, 1000ml bolus of ns given this morning. pt states that hypotension is normal for him. family at bedside. Bed alarm on. Call light in reach. no complaints at this time
[2024-07-14] MEDS: DONEPEZIL 5MG TAB 5 MG PO (20:11)
[2024-07-14] MEDS: TAMSULOSIN 0.4MG CAPSULE 0.4 MG PO (20:11)
[2024-07-14] MEDS: MEMANTINE 10MG TABLET 5 MG PO (20:11)
[2024-07-14 22:19] LABS: Adenovirus,PCR Not Detected (NotDetected); Bordetella Pertussis Not Detected (NotDetected); Chlamydophila Pneumoniae, PCR Not Detected (NotDetected); Coronavirus 19, PCR Not Detected (NotDetected); Coronavirus 229E Not Detected (NotDetected); Coronavirus NL63 Not Detected (NotDetected); Coronavirus OC43 Not Detected (NotDetected); Coronovirus HKU1,PCR Not Detected (NotDetected); Human Metapneumovirus Not Detected (NotDetected); Influenza A, PCR Not Detected (NotDetected); Influenza AH1, 2009 Not Detected (NotDetected); Influenza AH1, PCR Not Detected (NotDetected); Influenza AH3,PCR Not Detected (NotDetected); Influenza B, PCR Not Detected (NotDetected); Mycoplasma Pneumoniae, PCR Not Detected (NotDetected); Parainfluenza 1, PCR Not Detected (NotDetected); Parainfluenza 2, PCR Not Detected (NotDetected); Parainfluenza 3, PCR Not Detected (NotDetected); Parainfluenza 4, PCR Not Detected (NotDetected); Respiratory Syncytial Virus Not Detected (NotDetected); Rhinovirus/Enterovirus Not Detected (NotDetected)
[2024-07-15] VITALS: BP 90/44; PULSE 83; RESP 18; TEMP 36.8; O2SAT 95
[2024-07-15 04:00] VITALS: BP 100/54; PULSE 86; RESP 16; TEMP 36.7; O2SAT 96; BMI 23.8
--- NOTE | 2024-07-15 06:24 | PC.NURSE ---
Alert and oriented. Minimal output this shift. helps with urinal. Patient is not distended or uncomfortable. Bladder scanned @ 0500, 271 in bladder, Lulú Lopez APRN stated this was okay and to leave it for now. Complained of pain one time, treated per nov. Call light in reach.
[2024-07-15 08:00] VITALS: BP 103/50; PULSE 95; RESP 18; TEMP 36.7; O2SAT 98
--- NOTE | 2024-07-15 09:03 | P.PN_ITS ---
Subjective Narrative: Lying comfortably in bed, states he is quite sore from PT yesterday and is waiting for pain meds this AM. Denies headache, chest pain, SOB, N/V, calf pain, paresthesias. Exam Data for Last 24 hours Vital signs and Labs for Last 24 Hours: Temp Pulse Resp BP Pulse Ox O2 Del Method O2 Flow Rate 98.1 F 95 H 18 103/50 L 98 Room Air 1 07/15/24 08:00 07/15/24 08:00 07/15/24 08:00 07/15/24 08:00 07/15/24 08:00 07/15/24 08:00 07/14/24 15:00 Laboratory Results - last 24 hr 07/14/24 22:00: Chlamy pneumoniae PCR Not detected, Adenovirus (PCR) Not detected, B. pertussis DNA (PCR) Not detected, Coronavirus OC43 (PCR) Not detected, Coronavirus HKU1 (PCR) Not detected, Coronavirus 229E (PCR) Not detected, SARS-CoV-2 (PCR) Not detected, Coronavirus NL63 (PCR) Not detected, Human Metapneumovir PCR Not detected, Influenza A (H1) PCR Not detected, Influ A (H1N1/09) PCR Not detected, Influenza A (H3) PCR Not detected, Influenza Type A (PCR) Not detected, Influenza Type B (PCR) Not detected, M. pneumoniae (PCR) Not detected, Parainfluenza 1 (PCR) Not detected, Parainfluenza 2 (PCR) Not detected, Parainfluenza 3 (PCR) Not detected, Parainfluenza 4 (PCR) Not detected, RSV (PCR) Not detected, Entero/Rhino (PCR) Not detected I & O for Last 24 hours: Intake & Output 07/12/24 07/13/24 07/14/24 07/15/24 23:59 23:59 23:59 23:59 Intake Total 1150 / 1150 1890 / 2070 390 / 390 Output Total 850 / 850 300 / 300 0 / 0 Balance 300 / 300 1590 / 1770 390 / 390 Weight 63.548 kg 63.548 kg 66.315 kg 69.003 kg Detailed Lower Extremity Exam Comments: L hip: Dressing C/D/I. Thigh and calves Soft, calves nontender. SILT 1st DWS/PA. +EHL/FHL/GS/TA. +2 DP. Progress Note: A&P Assessment and plan (1) Closed left femoral fracture: Status: Acute Assessment and plan: PT/OT: WBAT to LLE with PHP in place at all times. Discussed with nursing to change dressing, as patient was in some pain this AM and didn't feel he could roll for dressing change. Ice, pain medication PRN pain. DVT ppx with ASA 325 mg BID x [address] Baptiste. Further care per medical team appreciated. DC planning to [place] when medically stable. Should follow up in clinic 2 weeks post-op (07/28) for staple removal and XRs, please call office to arrange. (2) Inguinal hernia of left side without obstruction or gangrene: Status: Acute (3) Chronic heart failure with preserved ejection fraction (HFpEF): Status: Acute
[2024-07-15] MEDS: HYDROCODONE/APAP 5/325 MG TABLET 1 TAB PO (09:24)
[2024-07-15] MEDS: OXYBUTYNIN 5MG TAB 5 MG PO (10:20)
[2024-07-15] MEDS: ASPIRIN 325MG TABLET 325 MG PO (10:20)
[2024-07-15] MEDS: METOPROLOL SUCCINATE XL 50MG TABLET 50 MG PO (10:20)
[2024-07-15] MEDS: SERTRALINE 50MG TABLET 25 MG PO (10:20)
[2024-07-15] MEDS: BISACODYL 5MG TABLET 10 MG PO (10:21)
[2024-07-15] MEDS: CEFTRIAXONE 1 GM 1 GM in 0.9 % SODIUM CHLORIDE 50 ML IV (10:21)
[2024-07-15] MEDS: POLYETHYLENE GLYCOL 3350 17 GM PACKET PO (10:22)
[2024-07-15 12:00] VITALS: BP 106/59; PULSE 92; RESP 18; TEMP 36.8; O2SAT 94
[2024-07-15] MEDS: ACETAMINOPHEN 325MG TAB 650 MG PO (12:29)
--- NOTE | 2024-07-15 13:27 | P.DS_ITS ---
General Admission date:: 07/12/24 HPI HPI HPI: This is a 88-year-old male with past medical history of inguinal hernia, BPH, chronic diastolic heart failure, status post TAVR who presents to the emergency department today with complaints of mechanical fall. States he was carrying a trash can and tripped over a carpet in the garage and fell landing on his left side. He denies loss of consciousness during the fall. Noted to have left hip deformity upon arrival with EMS. Denies any chest pain or shortness of breath prior to the fall. States that he is being worked up for cardiac clearance for inguinal hernia surgery. Workup revealed left femoral neck fracture displaced Ortho consulted regarding definitive treatment options. Hospital Course Hospital Course Hospital Course: #Left femoral neck fracture After mechanical fall. Cardiac preoperative assessment revealed low risk for complications. Dr. Baptiste with orthopedics consulted. 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 Patient is doing well today, working with physical therapy. Orthopedic surgery recommendations: - PT/OT: WBAT to LLE with PHP in place at all times. - Ice, pain medication PRN pain. - DVT ppx with ASA 325 mg BID x [address] Baptiste. - Should follow up in clinic 2 weeks post-op (07/28) for staple removal and XRs, please call office to arrange. Physical therapy recommended SNF. Case management assisting, and [facility] graciously offered to accept patient. # Low-grade fever, resolved Patient's blood pressure today improved after giving an additional 500 mL bolus. Initially in the 90s, now in the 100s. ? Patient did have a low-grade fever of 100.2 Fahrenheit overnight, CXR did not show acute findings. No leukocytosis. Respiratory panel normal. ? UA suggestive of UTI, started ceftriaxone. No longer having fevers. ? Discharged with cefdinir for 5 more days. # HFpEF #History of TAVR Stable, euvolemic. ? Holding spironolactone, Entresto due to soft pressures with systolics in the 100s in the setting of opioids. Can be resumed once blood pressures have improved. #Inguinal hernia Noted on CT imaging. Stable Patient reports will be undergoing elective surgery once able #Cognitive impairment Continue home memantine and sertraline Exam Data for Last 24 hours Vital signs and Labs for Last 24 Hours: Temp Pulse Resp BP Pulse Ox O2 Del Method O2 Flow Rate 98.3 F 92 H 18 106/59 L 94 L Room Air 1 07/15/24 12:00 07/15/24 12:00 07/15/24 12:00 07/15/24 12:00 07/15/24 12:00 07/15/24 12:00 07/14/24 15:00 Laboratory Results - last 24 hr 07/14/24 22:00: Chlamy pneumoniae PCR Not detected, Adenovirus (PCR) Not detected, B. pertussis DNA (PCR) Not detected, Coronavirus OC43 (PCR) Not detected, Coronavirus HKU1 (PCR) Not detected, Coronavirus 229E (PCR) Not detected, SARS-CoV-2 (PCR) Not detected, Coronavirus NL63 (PCR) Not detected, Human Metapneumovir PCR Not detected, Influenza A (H1) PCR Not detected, Influ A (H1N1/09) PCR Not detected, Influenza A (H3) PCR Not detected, Influenza Type A (PCR) Not detected, Influenza Type B (PCR) Not detected, M. pneumoniae (PCR) Not detected, Parainfluenza 1 (PCR) Not detected, Parainfluenza 2 (PCR) Not detected, Parainfluenza 3 (PCR) Not detected, Parainfluenza 4 (PCR) Not detected, RSV (PCR) Not detected, Entero/Rhino (PCR) Not detected I & O for Last 24 hours: Intake & Output 07/12/24 07/13/24 07/14/24 07/15/24 23:59 23:59 23:59 23:59 Intake Total 1150 / 1150 1890 / 2070 630 / 630 Output Total 850 / 850 300 / 300 0 / 0 Balance 300 / 300 1590 / 1770 630 / 630 Weight 63.548 kg 63.548 kg 66.315 kg 69.003 kg Results Data Completed and Pending Labs on day of discharge: Labs from last 24 hours 07/14/24 22:00 Chlamy pneumoniae PCR Not detected Adenovirus (PCR) Not detected B. pertussis DNA (PCR) Not detected Coronavirus OC43 (PCR) Not detected Coronavirus HKU1 (PCR) Not detected Coronavirus 229E (PCR) Not detected SARS-CoV-2 (PCR) Not detected Coronavirus NL63 (PCR) Not detected Human Metapneumovir PCR Not detected Influenza A (H1) PCR Not detected Influ A (H1N1/09) PCR Not detected Influenza A (H3) PCR Not detected Influenza Type A (PCR) Not detected Influenza Type B (PCR) Not detected M. pneumoniae (PCR) Not detected Parainfluenza 1 (PCR) Not detected Parainfluenza 2 (PCR) Not detected Parainfluenza 3 (PCR) Not detected Parainfluenza 4 (PCR) Not detected RSV (PCR) Not detected Entero/Rhino (PCR) Not detected DS: Diagnosis Discharge Diagnosis (1) Closed left femoral fracture: Status: Acute Code(s): S72.92XA - Unspecified fracture of left femur, initial encounter for closed fracture Qualifiers: Encounter type: initial encounter Femur location: base of neck Fracture alignment: nondisplaced Qualified Code(s): S72.045A - Nondisplaced fracture of base of neck of left femur, initial encounter for closed fracture (2) Inguinal hernia of left side without obstruction or gangrene: Status: Acute Code(s): K40.90 - Unilateral inguinal hernia, without obstruction or gangrene, not specified as recurrent (3) Chronic heart failure with preserved ejection fraction (HFpEF): Status: Acute Code(s): I50.32 - Chronic diastolic (congestive) heart failure Meds Home Medications and Allergies Home Medications ?Medication ?Instructions ?Recorded ?Confirmed ?Type famotidine 20 mg tablet (Pepcid) 20 mg PO DAILY 06/24/23 07/12/24 History loratadine 10 mg tablet (Claritin) 10 mg PO DAILY 06/24/23 07/12/24 History metoprolol succinate 50 mg 100 mg PO DAILY 06/24/23 07/12/24 History tablet,extended release 24 hr sacubitril 24 mg-valsartan 26 mg 0.5 tab PO BID Heart Failure 06/24/23 07/13/24 History tablet (Entresto) spironolactone 25 mg tablet 12.5 mg PO DAILY 06/24/23 07/12/24 History donepezil 5 mg tablet 5 mg PO HS 05/09/24 07/13/24 History memantine 5 mg tablet 5 mg PO HS 05/09/24 07/13/24 History sertraline 25 mg tablet (Zoloft) 25 mg PO DAILY 05/09/24 07/12/24 History lorazepam 0.5 mg tablet 0.5 mg PO BIDP PRN Anxiety 06/20/24 07/13/24 History oxybutynin chloride 10 mg 10 mg PO DAILY #90 tabs 07/04/24 07/12/24 Rx tablet,extended release 24 hr tamsulosin 0.4 mg capsule (Flomax) 0.4 mg PO HS 07/13/24 07/13/24 History aspirin 325 mg capsule 325 mg PO BID 26 days #52 caps 07/15/24 Rx aspirin 325 mg tablet 325 mg PO BID 5 days #10 tabs 07/15/24 Rx cefdinir 300 mg capsule 300 mg PO BID #20 caps 07/15/24 Rx hydrocodone 5 mg-acetaminophen 325 2 tab PO Q4HP PRN Severe Pain 07/15/24 Rx mg tablet (7-10) 3 days #18 tabs polyethylene glycol 3350 17 gram 17 g PO DAILY 30 days #30 ea 07/15/24 Rx oral powder packet (HealthyLax) New Prescriptions to Start Prescriptions: Edwardo Dickerson aspirin Lilly,Edwardo cefdinir Edwardo Carr hydrocodone-acetaminophen Edwardo Carr polyethylene glycol 3350 [HealthyLax] Edwardo Carr Allergies Allergy/AdvReac Type Severity Reaction Status Date / Time ibuprofen Allergy Hives Verified 07/04/24 10:27 Sulfa (Sulfonamide Allergy Hives Verified 07/04/24 10:27 Antibiotics) Discharge Plan Disposition Patient Disposition: Xfer SNF Condition: Good Discharge Order Discharge Orders: Discharge Order (Routine); Ordered 07/15/24 Ordered By: Edwardo Carr Follow up Plan Follow up with: Nghia Baptiste DO [Staff Physician] - 07/26/24 10:30 am (please arrived 30 minutes prior to appointment for x-ray) Prescriptions/Medication Reconciliation: New polyethylene glycol 3350 [HealthyLax] 17 gram Powder In Packet 17 g PO DAILY 30 Days Qty: 30 0RF aspirin 325 mg Tablet 325 mg PO BID 5 Days Qty: 10 0RF hydrocodone-acetaminophen 5-325 mg Tablet 2 tab PO Q4HP PRN (Reason: Severe Pain (7-10)) 3 Days Qty: 18 0RF cefdinir 300 mg capsule 300 mg PO BID Qty: 20 0RF aspirin 325 mg capsule 325 mg PO BID 26 Days Qty: 52 0RF Continued lorazepam 0.5 mg tablet 0.5 mg PO BIDP PRN (Reason: Anxiety) memantine 5 mg tablet 5 mg PO HS Patient Comments: TAKE ONE TABLET BY MOUTH EVERY DAY FOR memory sertraline [Zoloft] 25 mg tablet 25 mg PO DAILY Patient Comments: TAKE ONE TABLET BY MOUTH EVERY DAY AT bedtime FOR mood donepezil 5 mg tablet 5 mg PO HS Patient Comments: TAKE ONE TABLET BY MOUTH EVERY DAY FOR memory oxybutynin chloride 10 mg tablet extended release 24hr 10 mg PO DAILY Qty: 90 3RF metoprolol succinate 50 mg tablet extended release 24 hr 100 mg PO DAILY loratadine [Claritin] 10 mg Tablet 10 mg PO DAILY famotidine [Pepcid] 20 mg Tablet 20 mg PO DAILY tamsulosin [Flomax] 0.4 mg capsule 0.4 mg PO HS Held spironolactone 25 mg tablet 12.5 mg PO DAILY Hold Instructions: Resume on 08/05/24. Your blood pressures have been stable without this medication. Please talk to your PCP regarding resuming this medication. Entresto 24-26 mg tablet 0.5 tab PO BID Hold Instructions: Resume on 08/05/24. Your blood pressures have been stable without this medication. Please follow-up with PCP to resume this medication. Discontinued aspirin 81 mg Tablet 81 mg PO DAILY Problem Reconciliation Problems Reviewed?: Yes Patient Discharge Instructions Patient Instructions: DI for Femoral Fracture, DI for Hip Replacement, How to Prevent Falls, DI for Surgical Site Infection, Catheter-Associated Urinary Tract Infection Print Language: Spanish Providers Primary Care Provider: Fatou Armenta Admit Provider: Edwardo Carr Attending Provider: Edwardo Carr
== END 2024-07-15 15:51 | DRG 522 ==
LOC: ER 22:05 → 2ND 22:52
PROVIDERS: Nurse Practitioner Acute Care; Orthopaedic Surgery; Physician Assistant; Admitting Provider Student in an Organized Health Care Education/Training Program; Emergency Provider Emergency Medicine; PCP Nurse Practitioner Family; Visit Provider Student in an Organized Health Care Education/Training Program
PROC: 0SRB03A Replacement of Left Hip Joint with Ceramic Synthetic Substitute, Uncemented, Open Approach (ICD-10-PCS; principal; 2024-07-13 13:00)
DX: S72.042A Displaced fracture of base of neck of left femur, initial encounter for closed fracture (principal); I50.32 Chronic diastolic (congestive) heart failure; K40.90 Unilateral inguinal hernia, without obstruction or gangrene, not specified as recurrent; Z79.899 Other long term (current) drug therapy; I11.0 Hypertensive heart disease with heart failure; Z95.810 Presence of automatic (implantable) cardiac defibrillator; Z95.2 Presence of prosthetic heart valve; Z87.891 Personal history of nicotine dependence; W01.0XXA Fall on same level from slipping, tripping and stumbling without subsequent striking against object, initial encounter; Y92.015 Private garage of single-family (private) house as the place of occurrence of the external cause; G31.84 Mild cognitive impairment of uncertain or unknown etiology
CPT/HCPCS: 36415; 70450; 71045; 72125; 72170; 72192; 73552; 73560; 80048; 80053; 81001; 85025; 85610; 85730; 86803; 86850; 87086; 87265; 87389; 87486; 87581; 87632; 87635; 93306; 97116; 97163; 97165; 97530; 99285; C1776; J0696; J2270; J2405; J7030

== ENCOUNTER 2024-07-26 10:18 | Outpatient (CLI) | payer MEDICARE, SELFPAY ==
--- NOTE | 2024-07-26 10:23 | XR_ITS ---
FINAL REPORT CLINICAL HISTORY: left hip fx3 wks surgery COMPARISON: None FINDINGS: LEFT HIP: Two views of the left hip demonstrate no acute fracture or dislocation. A left hip arthroplasty is present. Moderate degenerative changes present in the lower lumbar spine. The visualized bony structures are well aligned. Surgical chi are noted lateral to the left hip. IMPRESSION: Left hip arthroplasty without acute abnormality identified. Reviewed, Interpreted and Dictated by Cameron Noel III, MD Transcribed by Shiloh Calvin Authenticated and . [facility]
== END 2024-07-26 23:59 | disposition home or self-care (01) ==
LOC: RAD 10:19
PROVIDERS: PCP Nurse Practitioner Family; Visit Provider Physician Assistant Surgical
DX: S72.002A Fracture of unspecified part of neck of left femur, initial encounter for closed fracture (principal)
CPT/HCPCS: 73502

== ENCOUNTER 2024-08-06 06:25 | Emergency (ER) | payer MEDICARE, SELFPAY ==
[2024-08-06] VITALS (7 sets, daily range): BP systolic 100–131; BP diastolic 54–83; PULSE 59–84; RESP 16–18; TEMP 36.6; O2SAT 95–100; BMI 20.7
--- NOTE | 2024-08-06 06:43 | CT_ITS ---
PROCEDURE INFORMATION: Exam: CT Chest Without Contrast; Diagnostic Exam date and time: 08/06/2024 6:53 AM Age: 89 years old Clinical indication: Injury or trauma; Fall; Blunt trauma (contusions or hematomas); Additional info: Fall 2w ago, R rib pain persistent TECHNIQUE: Imaging protocol: Diagnostic computed tomography of the chest without contrast. Radiation optimization: All CT scans at this facility use at least one of these dose optimization techniques: automated exposure control; mA and/or kV adjustment per patient size (includes targeted exams where dose is matched to clinical indication); or iterative reconstruction. COMPARISON: CR XR CHEST PORTABLE 07/14/2024 1:48 PM FINDINGS: Limitations: The absence of intravenous contrast limits the assessment of vascular structures, lesions and lymphadenopathy. Tubes, catheters and devices: A pulse generator device is present with lead in appropriate position. Trachea: Main airways are patent. Lungs: There is bilateral subpleural reticulation with traction bronchiectasis and minimal honeycombing with lower lobe gradient.No pneumothorax. No pleural effusion. Pleural spaces: See Lungs finding. Heart: Status post aortic valve replacementMitral annulus calcifications noted. Coronary arteries: There is severe atherosclerotic calcification of the coronary arteries. Lymph nodes: Borderline prominent, multi station lymph nodes likely reactive. Calcified mediastinal and hilar lymph nodes suggest prior granulomatous exposure. Vasculature: The main pulmonary trunk is prominent, which can be seen in the context of pulmonary hypertension. Bones/joints: Multilevel degenerative changes of the included spine. Fractures encompassing 6 7 8 and 9 right lateral ribs. No segmental rib fractures. Soft tissues: Unremarkable. IMPRESSION: Fractures encompassing 6 7 8 and 9 right lateral ribs. No segmental rib fractures.
--- NOTE | 2024-08-06 06:43 | XR_ITS ---
PROCEDURE INFORMATION: Exam: XR Right Knee Exam date and time: 08/06/2024 6:58 AM Age: 89 years old Clinical indication: Pain; Knee; Right; Additional info: Fall pain TECHNIQUE: Imaging protocol: Radiologic exam of the right knee. Views: 3 views. COMPARISON: No relevant prior studies available. FINDINGS: Bones/joints: Diffuse osteopenia. No visible fracture or dislocation. No joint effusion Soft tissues: Normal. IMPRESSION: No visible fracture or dislocation.
--- NOTE | 2024-08-06 06:43 | XR_ITS ---
PROCEDURE INFORMATION: Exam: XR Left Knee Exam date and time: 08/06/2024 6:58 AM Age: 89 years old Clinical indication: Pain; Knee; Left; Additional info: Fall, pain TECHNIQUE: Imaging protocol: Radiologic exam of the left knee. Views: 3 views. COMPARISON: CR XR KNEE LT 2V 07/12/2024 9:42 PM FINDINGS: Bones/joints: No visible fracture or dislocation. No joint effusion Soft tissues: Normal. IMPRESSION: No visible fracture or dislocation.
--- NOTE | 2024-08-06 06:46 | [facility].EDGENADL ---
Discharge Plan Disposition Chief Complaint: Altered Mental Status Prescriptions Prescriptions: New risperidone 0.5 mg tablet 0.5 mg PO HS Qty: 30 0RF Continued memantine 5 mg tablet 5 mg PO HS Patient Comments: TAKE ONE TABLET BY MOUTH EVERY DAY FOR memory sertraline [Zoloft] 25 mg tablet 25 mg PO DAILY Patient Comments: TAKE ONE TABLET BY MOUTH EVERY DAY AT bedtime FOR mood donepezil 5 mg tablet 5 mg PO HS Patient Comments: TAKE ONE TABLET BY MOUTH EVERY DAY FOR memory oxybutynin chloride 10 mg tablet extended release 24hr 10 mg PO DAILY Qty: 90 3RF metoprolol succinate 50 mg tablet extended release 24 hr 100 mg PO DAILY spironolactone 25 mg tablet 12.5 mg PO DAILY Entresto 24-26 mg tablet 0.5 tab PO BID loratadine [Claritin] 10 mg Tablet 10 mg PO DAILY famotidine [Pepcid] 20 mg Tablet 20 mg PO DAILY tamsulosin [Flomax] 0.4 mg capsule 0.4 mg PO HS polyethylene glycol 3350 [HealthyLax] 17 gram Powder In Packet 17 g PO DAILY 30 Days Qty: 30 0RF aspirin 325 mg Tablet 325 mg PO BID 5 Days Qty: 10 0RF aspirin 325 mg capsule 325 mg PO BID 26 Days Qty: 52 0RF Discontinued lorazepam 0.5 mg tablet 0.5 mg PO BIDP PRN (Reason: Anxiety) hydrocodone-acetaminophen 5-325 mg Tablet 2 tab PO Q4HP PRN (Reason: Severe Pain (7-10)) 3 Days Qty: 18 0RF cefdinir 300 mg capsule 300 mg PO BID Qty: 20 0RF Referrals Follow up/Referrals: Fatou Armenta [Primary Care Provider] - See instructions Activity Restrictions/Add. Instructions Additional Instructions/Restrictions: Call your family doctor to establish care for this visit to the emergency department and schedule follow-up within 48 hours to ensure improvement. If you have any worsening of your condition or any other concerning signs or symptoms, return to the emergency department or your primary care doctor for further evaluation. Clinical Impressions Clinical Impression: Agitation, Multiple fractures of ribs of right side Instructions Patient Instructions: DI for Altered Mental Status Print Language Print Language: Mozambican Discharge ED Provider: Adam Day General Adult HPI <Shireen Ledesma MD - Last Filed: 08/06/24 07:05> General Chief complaint: Altered Mental Status Stated complaint: fall, R side pain, chest congestion, dementia Time Seen by Provider: 08/06/24 06:29 History of Present Illness HPI narrative: 89-year-old male with history of recent left hip fracture status post left hip arthroplasty, BPH, HFpEF, TAVR presents to the ER with his family who is concerned for the patient not sleeping, having delusions overnight, and being progressively combative. Daughter and at bedside report that patient broke his hip at the end of June, had hip replacement, and then [facility]. They report during his time there, he had rapid progression of sundowning and got his days and nights flipped. He started to have mild delirium, but was discharged a few days ago and since that time has had continued progression. He is sleeping during the day, awake at night, he is having hallucinations of relatives. He is up and wandering the house all night. They are worried because he has had multiple minor falls during his admission [facility] as well as since going home and he will not stay in bed. Patient fell on his knee yesterday. He states it is mildly painful on the right knee but also the left. Family believes he landed on the left knee. He did not strike his head. Patient did have a fall while admitted to [facility] approximately 2 weeks ago and since that time his had right sided chest pain. They report he allegedly had x-rays that Dr. Cazares had ordered but they are unsure what the results of those were. Patient has had some acute chest congestion since that time. reports a temperature of 99.2 yesterday. Patient has not had documented fever, vomiting, diarrhea, dysuria, hematuria, or other associated symptoms. He denies pain at this time, patient reports he is sleeping overnight, he does not recall any of the events of last night, and daughter state he was up all night, daughter also reports she had to call her to come to the house to help restrain him because he was becoming progressively more combative. Patient is alert and oriented on arrival, behaving appropriately. Family is here requesting medical evaluation, but primarily concerned about placement and patient's safety as well as their safety since his progress of symptoms seems to be also increasing his combativeness. Patient does take lorazepam nightly, this has been prescribed to him for multiple months. He also takes memantine and donepezil. Related Data Home Medications ?Medication ?Instructions ?Recorded ?Confirmed famotidine 20 mg tablet (Pepcid) 20 mg PO DAILY 06/24/23 07/26/24 loratadine 10 mg tablet (Claritin) 10 mg PO DAILY 06/24/23 07/26/24 metoprolol succinate 50 mg 100 mg PO DAILY 06/24/23 07/26/24 tablet,extended release 24 hr sacubitril 24 mg-valsartan 26 mg 0.5 tab PO BID Heart Failure 06/24/23 07/26/24 tablet (Entresto) spironolactone 25 mg tablet 12.5 mg PO DAILY 06/24/23 07/26/24 donepezil 5 mg tablet 5 mg PO HS 05/09/24 07/26/24 memantine 5 mg tablet 5 mg PO HS 05/09/24 07/26/24 sertraline 25 mg tablet (Zoloft) 25 mg PO DAILY 05/09/24 07/26/24 tamsulosin 0.4 mg capsule (Flomax) 0.4 mg PO HS 07/13/24 07/26/24 Previous Rx's ?Medication ?Instructions ?Recorded oxybutynin chloride 10 mg 10 mg PO DAILY #90 tabs 07/04/24 tablet,extended release 24 hr aspirin 325 mg capsule 325 mg PO BID 26 days #52 caps 07/15/24 aspirin 325 mg tablet 325 mg PO BID 5 days #10 tabs 07/15/24 polyethylene glycol 3350 17 gram 17 g PO DAILY 30 days #30 ea 07/15/24 oral powder packet (HealthyLax) risperidone 0.5 mg tablet 0.5 mg PO HS #30 tabs 08/06/24 Allergies Allergy/AdvReac Type Severity Reaction Status Date / Time ibuprofen Allergy Hives Verified 07/26/24 11:39 Sulfa (Sulfonamide Allergy Hives Verified 07/26/24 11:39 Antibiotics) [facility] <Shireen Ledesma MD - Last Filed: 08/06/24 07:05> [facility] Disclaimer: The information contained in this section may have been updated after the patient was seen, as this information can be updated by other users. Medical History Renal failure Pyuria Generalized weakness Hernia Chronic heart failure with preserved ejection fraction (HFpEF) Aortic valve disease Cardiac defibrillator in place Hypertension Surgical History History of biopsy of bladder Aortic valve replaced AICD (automatic cardioverter/defibrillator) present History of appendectomy Amputation finger Family History Mother Coronary artery disease Heart attack Father Dementia Other Family history of hypertension Social History (Updated 08/06/24 @ 07:05 by Shireen Ledesma MD) Smoking Status: Never smoker alcohol intake: never substance use type: denies use current occupational status: retired and other Travel in the last 8 weeks: None Other Medical History Have you received the Flu Vaccine for this season: No Have you received the Pneumonia Vaccine: Yes <Shireen Ledesma MD - Last Filed: 08/06/24 07:05> ROS Obtained: Yes Systems reviewed as appropriate & no additional complaints except as documented ROS per HPI Physical Exam <Shireen Ledesma MD - Last Filed: 08/06/24 07:05> General General appearance: alert and in no apparent distress Head Head exam: atraumatic and normocephalic Eye Eye exam: Present PERRL and EOMI ENT ENT exam: Present mucous membranes moist Neck Neck exam: Present normal inspection and full ROM Chest Chest inspection: Present symmetric chest wall rise and tenderness (Right low lateral chest wall without crepitus, deformity, or step-off, no overlying bruising) Respiratory Respiratory exam: Present normal lung sounds bilaterally; Absent respiratory distress, wheezes or stridor Cardiovascular Cardiovascular exam: Present regular rate and normal rhythm Abdominal Exam Abdominal exam: Present soft; Absent distention, tenderness, guarding or rebound Extremities Exam Extremities exam: Present other (Left hip arthroplasty incision clean, dry, well-approximated, no findings of infection); Absent full ROM (Somewhat limited range of motion of the left hip secondary to pain, however patient does have large range of motion both flexion and extension), tenderness (No tenderness of the extremities, specifically the knees are not swollen, no tenderness) or edema Neurological Exam Neurological exam: Present alert and oriented X3; Absent motor sensory deficit Psychiatric Psychiatric exam: Present normal affect, normal mood and other (Patient is not experiencing hallucinations at this time) Skin Skin exam: Present warm and dry Medical Decision Making <Shireen Ledesma MD - Last Filed: 08/06/24 07:05> Medical Records Medical records reviewed: Yes I reviewed the patient's medical records. Screening: Per USPSTF and CDC recommendations, given the prevalence of disease in our region, it is our hospital?s policy to screen for HIV and viral Hepatitis for all patients aged 18 and over and those with ongoing risk factors. MR Comment: Discharge summary from patient's recent admission to our facility was reviewed. Patient was discharged from the hospital with his spironolactone and Entresto being held with plan for follow-up with Dr. Baptiste. At the time of his discharge he was newly prescribed aspirin, cefdinir due to UA suggestive of UTI, MiraLAX, and a short course of [place]. Alexx Inquiry Pt receiving controlled substance: No Vital Signs: 08/06/24 06:27 08/06/24 07:27 08/06/24 08:22 Temperature 97.9 F Temperature Source Oral Pulse Rate 64 60 Pulse Rate [Right Radial] 75 Respiratory Rate 16 Blood Pressure 100/57 L 116/58 L Blood Pressure [Right Arm] 107/57 L Blood Pressure Mean [Right Arm] 73 Blood Pressure Source [Right Arm] Automatic Cuff Blood Pressure Position [Right Arm] Supine 02 Sat by Pulse Oximetry 100 100 98 Oxygen Delivery Method Room Air 08/06/24 08:30 08/06/24 08:34 Temperature Temperature Source Pulse Rate 59 L Pulse Rate [Right Radial] Respiratory Rate Blood Pressure 108/54 L 114/62 Blood Pressure [Right Arm] Blood Pressure Mean [Right Arm] Blood Pressure Source [Right Arm] Blood Pressure Position [Right Arm] 02 Sat by Pulse Oximetry 96 95 Oxygen Delivery Method Lab Data Lab Results 08/06/24 06:30: WBC 8.1, RBC 3.58 L, Hgb 11.5 L, Hct 35.4 L, MCV 98.9 H, MCH 32.2 H, MCHC 32.6, RDW 14.4, Plt Count 326, MPV 7.1 L, Neut % (Auto) 68.4, Lymph % (Auto) 16.5, [place] % (Auto) 8.7, Eos % (Auto) 4.2, Baso % (Auto) 2.2 H, Neut # (Auto) 5.5, Lymph # (Auto) 1.3, [place] # (Auto) 0.7, Eos # (Auto) 0.3, Baso # (Auto) 0.2, PT 11.3, INR 1.01, Sodium 137, Potassium 4.4, Chloride 103, Carbon Dioxide 28, Anion Gap 10.4, BUN 29 H, Creatinine 1.50 H, Estimated Creat Clear 27, Estimated GFR 44 L, Est GFR ( Amer) 53 L, Glucose 94, Calcium 9.0, Total Bilirubin 0.4, AST 31, ALT 15, Alkaline Phosphatase 121, Total Protein 6.7, Albumin 3.5, Globulin 3.2, Albumin/Globulin Ratio 1.1, Plasma/Serum Alcohol < 10 08/06/24 07:53: Urine Opiates Screen Positive H, Urine Methadone Screen Negative, Ur Barbituates Screen Negative, Ur Phencyclidine Scrn Negative, Ur Amphetamines Screen Negative, U Benzodiazepines Scrn Negative, Urine Cocaine Screen Negative, U Marijuana (THC) Screen Negative 08/06/24 07:55: Urine Color Yellow, Urine Appearance Clear, Urine pH 5.5, Ur Specific Notus 1.025, Urine Protein Trace, Urine Glucose (UA) Negative, Urine Ketones Negative, Urine Blood Negative, Urine Nitrate Negative, Urine Bilirubin Negative, Urine Urobilinogen 0.2, Ur Leukocyte Esterase Trace, Urine RBC None, Urine WBC Occasional, Ur Squamous Epith Cells 3-5, Urine Bacteria None, Urine Yeast Occasional 08/06/24 06:30 08/06/24 06:30 Orders (Tests/Meds): ORDERS Category Date Time Status CT chest wo con Stat Cat Scan 08/06/24 06:43 Completed Knee XR left 3 views [XR knee LT 3V] Stat Exams 08/06/24 06:43 Completed Knee XR right 3 views [XR knee RT 3V] Stat Exams 08/06/24 06:43 Completed CBC w/Auto Diff [Complete Blood Count Auto Diff] Stat Lab 08/06/24 06:30 Completed CMP [Comprehensive Metabolic Panel] Stat Lab 08/06/24 06:30 Completed Ethanol [Ethyl Alcohol] Stat Lab 08/06/24 06:30 Completed PT INR [Prothrombin Time INR] Stat Lab 08/06/24 06:30 Completed UDS [Drug Screen,Urine] Stat Lab 08/06/24 07:53 Completed Urinalysis and Microscopic Stat Lab 08/06/24 07:55 Completed Medical Decision Narrative: In summary, this 89-year-old male with comorbidities as described in HPI presents to the emergency department today with family for concerns of not sleeping, hallucinations, agitation/combativeness at night, as well as right side pain since a fall 2 weeks ago. On initial evaluation patient is hemodynamically stable, afebrile, physical exam notable for tenderness to palpation of the right lower lateral ribs without overlying findings of trauma, no peripheral edema, left hip incision is clean, dry, well-healing, no findings of infection, patient complained of knees being painful after recent falls but there are no areas of tenderness, no deformity, no swelling. Differential diagnosis includes but is not limited to hospital delirium, medication side effect, electrolyte abnormality, pneumonia, rib fracture, fracture, dislocation, urinary tract infection, dementia, failure to thrive. Based on these concerns, I ordered serum labs, CT noncontrast chest, x-rays of bilateral knees. No medications administered initially in the ER. Labs personally reviewed demonstrate no leukocytosis, anemia improved from labs performed on July 14 which I reviewed, platelets normal, remaining labs pending at the time of physician handoff.. Radiology studies pending at the time of physician handoff. Patient handed off to Dr. Day at physician handoff for continued management and disposition pending lab and radiology studies. <Adam Day MD - Last Filed: 08/06/24 10:51> Vital Signs: 08/06/24 06:27 08/06/24 07:27 08/06/24 08:22 Temperature 97.9 F Temperature Source Oral Pulse Rate 64 60 Pulse Rate [Right Radial] 75 Respiratory Rate 16 Blood Pressure 100/57 L 116/58 L Blood Pressure [Right Arm] 107/57 L Blood Pressure Mean [Right Arm] 73 Blood Pressure Source [Right Arm] Automatic Cuff Blood Pressure Position [Right Arm] Supine 02 Sat by Pulse Oximetry 100 100 98 Oxygen Delivery Method Room Air 08/06/24 08:30 08/06/24 08:34 Temperature Temperature Source Pulse Rate 59 L Pulse Rate [Right Radial] Respiratory Rate Blood Pressure 108/54 L 114/62 Blood Pressure [Right Arm] Blood Pressure Mean [Right Arm] Blood Pressure Source [Right Arm] Blood Pressure Position [Right Arm] 02 Sat by Pulse Oximetry 96 95 Oxygen Delivery Method Lab Data Lab Results 08/06/24 06:30: WBC 8.1, RBC 3.58 L, Hgb 11.5 L, Hct 35.4 L, MCV 98.9 H, MCH 32.2 H, MCHC 32.6, RDW 14.4, Plt Count 326, MPV 7.1 L, Neut % (Auto) 68.4, Lymph % (Auto) 16.5, [place] % (Auto) 8.7, Eos % (Auto) 4.2, Baso % (Auto) 2.2 H, Neut # (Auto) 5.5, Lymph # (Auto) 1.3, [place] # (Auto) 0.7, Eos # (Auto) 0.3, Baso # (Auto) 0.2, PT 11.3, INR 1.01, Sodium 137, Potassium 4.4, Chloride 103, Carbon Dioxide 28, Anion Gap 10.4, BUN 29 H, Creatinine 1.50 H, Estimated Creat Clear 27, Estimated GFR 44 L, Est GFR ( Amer) 53 L, Glucose 94, Calcium 9.0, Total Bilirubin 0.4, AST 31, ALT 15, Alkaline Phosphatase 121, Total Protein 6.7, Albumin 3.5, Globulin 3.2, Albumin/Globulin Ratio 1.1, Plasma/Serum Alcohol < 10 08/06/24 07:53: Urine Opiates Screen Positive H, Urine Methadone Screen Negative, Ur Barbituates Screen Negative, Ur Phencyclidine Scrn Negative, Ur Amphetamines Screen Negative, U Benzodiazepines Scrn Negative, Urine Cocaine Screen Negative, U Marijuana (THC) Screen Negative 08/06/24 07:55: Urine Color Yellow, Urine Appearance Clear, Urine pH 5.5, Ur Specific Notus 1.025, Urine Protein Trace, Urine Glucose (UA) Negative, Urine Ketones Negative, Urine Blood Negative, Urine Nitrate Negative, Urine Bilirubin Negative, Urine Urobilinogen 0.2, Ur Leukocyte Esterase Trace, Urine RBC None, Urine WBC Occasional, Ur Squamous Epith Cells 3-5, Urine Bacteria None, Urine Yeast Occasional Orders (Tests/Meds): ORDERS Category Date Time Status CT chest wo con Stat Cat Scan 08/06/24 06:43 Completed Knee XR left 3 views [XR knee LT 3V] Stat Exams 08/06/24 06:43 Completed Knee XR right 3 views [XR knee RT 3V] Stat Exams 08/06/24 06:43 Completed CBC w/Auto Diff [Complete Blood Count Auto Diff] Stat Lab 08/06/24 06:30 Completed CMP [Comprehensive Metabolic Panel] Stat Lab 08/06/24 06:30 Completed Ethanol [Ethyl Alcohol] Stat Lab 08/06/24 06:30 Completed PT INR [Prothrombin Time INR] Stat Lab 08/06/24 06:30 Completed UDS [Drug Screen,Urine] Stat Lab 08/06/24 07:53 Completed Urinalysis and Microscopic Stat Lab 08/06/24 07:55 Completed Medical Decision Narrative: In summary, this 89-year-old male with comorbidities as described in HPI presents to the emergency department today with family for concerns of not sleeping, hallucinations, agitation/combativeness at night, as well as right side pain since a fall 2 weeks ago. On initial evaluation patient is hemodynamically stable, afebrile, physical exam notable for tenderness to palpation of the right lower lateral ribs without overlying findings of trauma, no peripheral edema, left hip incision is clean, dry, well-healing, no findings of infection, patient complained of knees being painful after recent falls but there are no areas of tenderness, no deformity, no swelling. Differential diagnosis includes but is not limited to hospital delirium, medication side effect, electrolyte abnormality, pneumonia, rib fracture, fracture, dislocation, urinary tract infection, dementia, failure to thrive. Based on these concerns, I ordered serum labs, CT noncontrast chest, x-rays of bilateral knees. No medications administered initially in the ER. Labs personally reviewed demonstrate no leukocytosis, anemia improved from labs performed on July 14 which I reviewed, platelets normal, remaining labs pending at the time of physician handoff.. Radiology studies pending at the time of physician handoff. Patient handed off to Dr. Day at physician handoff for continued management and disposition pending lab and radiology studies. Shay: I assumed primary responsibility for this patient after signout from previous physician. On my evaluation, patient pleasant, confused, but this is baseline, per family at bedside. No acute complaints. Independent interpretation of workup with nonactionable CBC. CMP with normal electrolytes, mild FRANTZ on CKD with creatinine 1.5 and BUN 29. Total protein normal, LFTs normal. Bilateral knee x-rays negative on independent interpretation. Chest CT with at least 3 nondisplaced rib fractures on the right with what appears to be subacute. See radiology read for further interpretation. Given this, hospital medicine was contacted and case was discussed at length. They visited patient. Shared decision making between hospitalist, myself, patient landed on patient being discharged home with family and continuing placement protocol. Hospitalist send and medication to help with agitation that he was previously on. I agree with this plan. Because patient at baseline without signs or symptoms of clinical decompensation, deemed appropriate for discharge. Results were relayed to patient patient family who voiced understanding and were agreeable to outpatient management and follow up. I discussed my clinical impression with patient family and answered all questions. At this time, the evidence for any other entities in the differential is insufficient to warrant any further testing or ED observation. This was explained as well. Advisory was given that persistent or worsening symptoms require further evaluation. I confirmed the understanding of this discussion. Critical Care <Shireen Ledesma MD - Last Filed: 08/06/24 07:05> Critical Care Time Critical Care Time: No
[2024-08-06 06:56] LABS: Basophils # 0.2 K/mm3 (0-0.2); Basophils % 2.2 % (0.1-2.0); Eosinophils # 0.3 K/mm3 (0.0-0.4); Eosinophils % 4.2 % (0.1-12.0); Hematocrit 35.4 % (42.0-52.0); Hemoglobin 11.5 g/dL (14.1-18.0); Lymphocytes # 1.3 K/mm3 (0.7-4.5); Lymphocytes % 16.5 % (10-50); Mean Corpuscular HGB Conc 32.6 g/dL (31.8-35.4); Mean Corpuscular Hemoglobin 32.2 pg (27.0-31.2); Mean Corpuscular Volume 98.9 fl (80-94); Mean Platelet Volume 7.1 fl (7.4-10.4); Monocytes # 0.7 K/mm3 (0.1-1.0); Monocytes % 8.7 % (1.7-9.3); Neutrophils # 5.5 K/mm3 (1.8-7.8); Neutrophils % 68.4 % (37.0-80.0); Platelet Count 326 K/mm3 (142-424); Red Blood Count 3.58 M/mm3 (4.60-6.20); Red Cell Distribution Width 14.4 % (11.5-17.5); White Blood Count 8.1 K/mm3 (4.8-10.8)
[2024-08-06 07:03] LABS: Alanine Aminotransferase 15 U/L (12-78); Albumin Level 3.5 g/dl (3.5-5.0); Albumin/Globulin Ratio 1.1 (1.1-1.8); Alkaline Phosphatase 121 U/L (38-126); Anion Gap 10.4 mEq/L (5-15); Aspartate Amino Transferase 31 U/L (17-59); Bilirubin,Total 0.4 mg/dl (0.2-1.3); Blood Urea Nitrogen 29 mg/dl (9-20); Carbon Dioxide 28 mmol/L (22.0-30.0); Chloride 103 mmol/L (98-107); Creatinine Clearance Estimated 27 mL/min (50-200); Estimated Glomerular Filt Rate 44 ml/min (>60); GFR (African American) 53 ML/MIN (>60); Globulin 3.2 g/dL (1.3-3.2); Glucose 94 mg/dl (74-100); Potassium 4.4 mmoL/L (3.5-5.1); Sodium 137 mmol/L (136-145); Total Protein,Serum 6.7 g/dl (6.3-8.2)
[2024-08-06 07:10] LABS: Ethyl Alcohol < 10 mg/dl (0-10)
[2024-08-06 07:42] LABS: INR 1.01 (0.9-1.1); Prothrombin Time 11.3 seconds (10.1-12.5)
[2024-08-06 07:58] LABS: Microscopic, Urine URINE MICROSCOPIC (MICROSCOPIC)
[2024-08-06 08:11] LABS: Appearance,Urine CLEAR (Clear); Bilirubin,Urine Negative (Negative); Blood, Urine Negative (Negative); Color,Urine YELLOW (Yellow); Glucose,Urine (UA) Negative (Negative); Ketones,Urine Negative (Negative); Leukocyte Esterase,Urine TRACE (Negative); Nitrate,Urine Negative (Negative); PH,Urine 5.5 (5.0-8.5); Protein,Urine TRACE (Negative); Specific Gravity, Urine 1.025 (1.005-1.030); Urobilinogen,Urine 0.2 EU/dl (0.2)
[2024-08-06 08:24] LABS: Amphetamine/Metha Screen,Urine Negative ng/ml (<1000); Benzodiazepines Screen,Urine Negative ng/ml (<200)
[2024-08-06 08:25] LABS: Barbiturates Screen,Urine Negative ng/ml (<200)
[2024-08-06 08:26] LABS: Cannabinoid Screen,Urine Negative ng/ml (<50); Methadone Screen,Urine Negative ng/ml (<300)
[2024-08-06 08:27] LABS: Cocaine Screen,Urine Negative ng/ml (<300); Opiate Screen,Urine Positive ng/ml (<300)
[2024-08-06 08:28] LABS: Phencyclidine Screen,Urine Negative ng/ml (<25)
[2024-08-06 08:40] LABS: WBC,Urine Occasional #/hpf (0-3); Yeast,Urine Occasional /lpf
--- NOTE | 2024-08-06 09:05 | PC.NURSE ---
coming to see pt
--- NOTE | 2024-08-06 10:27 | EXP.MED.CON ---
History of Present Illness *Admission Date: 08/06/24 *Reason for visit:: Confusion, behavioral disturbance. *History of present illness: Mr. Floyd is an 89-year-old male with history of hip fracture the end of last month. Status post arthroplasty with transfer to [facility] for rehab. Was just discharged on back to the care of family. Medical history significant for BPH, HFpEF, TAVR, cognitive impairment. Condition has gotten worse with his memory. Family states patient has not slept in 48 to 72 hours. He has become more confused with worsening mentation in the afternoon and evening. Family also reports he fell about a week ago at the [place] [facility]. No imaging obtained as of yet. In the ER, patient is hemodynamically stable, pleasant on exam. Denies any chest pain. CT of chest does show sequential fractures and 4 ribs on right side but no significant pulmonary contusion. Labs are nonactionable. Urine unremarkable. Medicine consulted to assist with evaluation and plan for either discharge home or admission for assistance with placement. On interview with family, patient takes memantine and donepezil. Has been taking Zoloft for mood. Was previously on 0.25 mg Risperdal prior to admission to SNF. Has been taking oxycodone since his hip surgery. On Ativan 5 mg twice daily as needed for 2 to 3 months. Mentation has been progressing over the past 6 months per and daughter at bedside. Patient has become more agitated. Son-in-law had to help redirect and restrain patient last night at home as he was trying to go out to his truck to leave and drive. Ambulating well since rehab for his hip fracture. [facility] Disclaimer: The information contained in this section may have been updated after the patient was seen, as this information can be updated by other users. Medical History Renal failure Pyuria Generalized weakness Hernia Chronic heart failure with preserved ejection fraction (HFpEF) Aortic valve disease Cardiac defibrillator in place Hypertension Surgical History History of biopsy of bladder Aortic valve replaced AICD (automatic cardioverter/defibrillator) present History of appendectomy Amputation finger Family History Mother Coronary artery disease Heart attack Father Dementia Other Family history of hypertension Social History Smoking Status: Never smoker alcohol intake: never substance use type: denies use current occupational status: retired and other Travel in the last 8 weeks: None Review of Systems Review of Systems Review of systems (narrative): Obtained from family. Exam Data for Last 24 hours Vital signs and Labs for Last 24 Hours: Temp Pulse Resp BP Pulse Ox O2 Del Method 97.9 F 59 L 16 114/62 95 Room Air 08/06/24 06:27 08/06/24 08:30 08/06/24 06:27 08/06/24 08:34 08/06/24 08:34 08/06/24 06:27 Laboratory Results - last 24 hr 08/06/24 06:30: WBC 8.1, RBC 3.58 L, Hgb 11.5 L, Hct 35.4 L, MCV 98.9 H, MCH 32.2 H, MCHC 32.6, RDW 14.4, Plt Count 326, MPV 7.1 L, Neut % (Auto) 68.4, Lymph % (Auto) 16.5, [place] % (Auto) 8.7, Eos % (Auto) 4.2, Baso % (Auto) 2.2 H, Neut # (Auto) 5.5, Lymph # (Auto) 1.3, [place] # (Auto) 0.7, Eos # (Auto) 0.3, Baso # (Auto) 0.2, PT 11.3, INR 1.01, Sodium 137, Potassium 4.4, Chloride 103, Carbon Dioxide 28, Anion Gap 10.4, BUN 29 H, Creatinine 1.50 H, Estimated Creat Clear 27, Estimated GFR 44 L, Est GFR ( Amer) 53 L, Glucose 94, Calcium 9.0, Total Bilirubin 0.4, AST 31, ALT 15, Alkaline Phosphatase 121, Total Protein 6.7, Albumin 3.5, Globulin 3.2, Albumin/Globulin Ratio 1.1, Plasma/Serum Alcohol < 10 08/06/24 07:53: Urine Opiates Screen Positive H, Urine Methadone Screen Negative, Ur Barbituates Screen Negative, Ur Phencyclidine Scrn Negative, Ur Amphetamines Screen Negative, U Benzodiazepines Scrn Negative, Urine Cocaine Screen Negative, U Marijuana (THC) Screen Negative 08/06/24 07:55: Urine Color Yellow, Urine Appearance Clear, Urine pH 5.5, Ur Specific [place] 1.025, Urine Protein Trace, Urine Glucose (UA) Negative, Urine Ketones Negative, Urine Blood Negative, Urine Nitrate Negative, Urine Bilirubin Negative, Urine Urobilinogen 0.2, Ur Leukocyte Esterase Trace, Urine RBC None, Urine WBC Occasional, Ur Squamous Epith Cells 3-5, Urine Bacteria None, Urine Yeast Occasional I & O for Last 24 hours: Intake & Output 08/03/24 08/04/24 08/05/24 08/06/24 23:59 23:59 23:59 23:59 Weight 56.699 kg Constitutional Constitutional: no acute distress, thin and cooperative *Routine HEENT Exam Head: Present normocephalic Eye: Present EOMI and PERRL ENT: Present mucous membranes moist *Routine Neck Exam Neck: Present supple; Absent lymphadenopathy Routine Chest/Breast/Axilla Exam Chest wall: Absent tenderness *Routine Respiratory Exam Respiratory: Present CTA bilaterally; Absent respiratory distress, rhonchi, wheezes or crackles *Routine Cardiovascular Exam Cardiovascular: Present RRR *Routine Abdominal Exam Abdominal: Present soft and normoactive bowel sounds; Absent tenderness *Routine Rectal Exam Patient deferred: visual exam *Routine Exam Patient deferred: penile exam *Routine Extremities Exam Extremities: Absent cyanosis, clubbing or edema Comments: Legs equal length, incision from previous left hip replacement clean dry and intact *Routine Skin Exam Skin: Present intact and warm; Absent rash *Routine Neurological Exam Neurological: Present alert and moving all extremities; Absent altered mental status Comments: Oriented to self. Mild confusion. Answers questions about history but has poor recall of recent events Detailed Lower Extremity Exam Comments: L hip: Dressing C/D/I. Thigh and calves Soft, calves nontender. SCDs in place on R calf. SILT 1st DWS/PA. +EHL/FHL/GS/TA. +2 DP. Meds Home Medications and Allergies Home Medications ?Medication ?Instructions ?Recorded ?Confirmed ?Type famotidine 20 mg tablet (Pepcid) 20 mg PO DAILY 06/24/23 07/26/24 History loratadine 10 mg tablet (Claritin) 10 mg PO DAILY 06/24/23 07/26/24 History metoprolol succinate 50 mg 100 mg PO DAILY 06/24/23 07/26/24 History tablet,extended release 24 hr sacubitril 24 mg-valsartan 26 mg 0.5 tab PO BID Heart Failure 06/24/23 07/26/24 History tablet (Entresto) spironolactone 25 mg tablet 12.5 mg PO DAILY 06/24/23 07/26/24 History donepezil 5 mg tablet 5 mg PO HS 05/09/24 07/26/24 History memantine 5 mg tablet 5 mg PO HS 05/09/24 07/26/24 History sertraline 25 mg tablet (Zoloft) 25 mg PO DAILY 05/09/24 07/26/24 History oxybutynin chloride 10 mg 10 mg PO DAILY #90 tabs 07/04/24 07/26/24 Rx tablet,extended release 24 hr tamsulosin 0.4 mg capsule (Flomax) 0.4 mg PO HS 07/13/24 07/26/24 History aspirin 325 mg capsule 325 mg PO BID 26 days #52 caps 07/15/24 07/26/24 Rx aspirin 325 mg tablet 325 mg PO BID 5 days #10 tabs 07/15/24 07/26/24 Rx polyethylene glycol 3350 17 gram 17 g PO DAILY 30 days #30 ea 07/15/24 07/26/24 Rx oral powder packet (HealthyLax) risperidone 0.5 mg tablet 0.5 mg PO HS #30 tabs 08/06/24 Rx New Prescriptions to Start Prescriptions: Yefri Acharya Allergies Allergy/AdvReac Type Severity Reaction Status Date / Time ibuprofen Allergy Hives Verified 07/26/24 11:39 Sulfa (Sulfonamide Allergy Hives Verified 07/26/24 11:39 Antibiotics) Results Labs 08/06/24 06:30 08/06/24 06:30 Labs: Abnormal lab results 08/06/24 08/06/24 Range/Units 06:30 07:53 RBC 3.58 L (4.60-6.20) M/mm3 Hgb 11.5 L (14.1-18.0) g/dL Hct 35.4 L (42.0-52.0) % MCV 98.9 H (80-94) fl MCH 32.2 H (27.0-31.2) pg MPV 7.1 L (7.4-10.4) fl Baso % (Auto) 2.2 H (0.1-2.0) % BUN 29 H (9-20) mg/dl Creatinine 1.50 H (0.66-1.25) mg/dl Estimated GFR 44 L (>60) ml/min Est GFR ( Amer) 53 L (>60) ML/MIN Urine Opiates Screen Positive H (<300) ng/ml H & H 08/06/24 Range/Units 06:30 Hgb 11.5 L (14.1-18.0) g/dL Hct 35.4 L (42.0-52.0) % Coagulation 08/06/24 Range/Units 06:30 INR 1.01 (0.9-1.1) All other labs normal. Assessment and Plan *Assessment and plan (1) Agitation: Status: Acute Category: Medical Code(s): R45.1 - Restlessness and agitation (2) Dementia: Status: Acute Category: Medical Code(s): F03.90 - Unspecified dementia, unspecified severity, without behavioral disturbance, psychotic disturbance, mood disturbance, and anxiety (3) Multiple fractures of ribs of right side: Status: Acute Category: Medical Code(s): S22.41XA - Multiple fractures of ribs, right side, initial encounter for closed fracture (4) BPH loc w urin obs/LUTS: Status: Acute Category: Medical Code(s): N40.1 - Benign prostatic hyperplasia with lower urinary tract symptoms (5) S/P TAVR (transcatheter aortic valve replacement): Status: Acute Category: Surgical Code(s): Z95.2 - Presence of prosthetic heart valve Plan Mr. Floyd is an 89-year-old male with history of mild cognitive impairment who has had worsening cognition and confusion over the past 2 to 3 days. Broke his hip the end of last month, went to rehab for 20 days and was discharged home on . Is physically able, active at home. Having more confusion and agitation at home however. Workup in the ER with normal lab work.White count normal at 8, hemoglobin 11.5, kidney function normal with BUN 29, creatinine 1.5 (baseline for patient). No signs of electrolyte disturbances. Urine unremarkable for UTI. Incidental finding of rib fractures on chest CT. Had a fall a week ago, nothing acute (and subacute phase). Extensive discussion with family about patient's progressive change in cognition. They are working on placement as an outpatient. Patient needing long-term care for his progressive memory issues and difficulty at home for to care for. Family is already completed Medicaid application. Recommend discharge home in the care of family as there is no medical reason to admit the patient and admission to the inpatient setting increases risk for worsening delirium, confusion, fall risk, agitation. Recommendations on medications as follows: -Discontinue Ativan and oxycodone, concerned they can worsen his confusion more -Initiate Risperdal 0.5 mg nightly. Has been on this previous to his admission at the [place] [facility]. Was previously on 0.25 mg, will double as it seemed to help him sleep prior to his fall and SNF placement. -If after 2 hours, patient still not asleep, okay to give an additional 0.25 mg dose of Risperdal. -Case management consult placed, will reach out to patient and family on Thursday to see how we can assist with long-term care placement. -If patient's condition worsens, encouraged family to come back to the ER for reevaluation and consideration for admission at that time. Discussed case with ER physician, in agreement with plan. Thank you for the opportunity to consult on this patient.
--- NOTE | 2024-08-08 09:26 | SW/DCPLANNER ---
Addendum entered by [facility] 08/15/24 15:53: [facility] is unable to accept patient at this time. I did call and update patient's and she stated that she is no longer interested in placement at this time. Addendum entered by [facility] 08/15/24 14:12: Rosalie w/ [facility] stated no beds available at this time. I have re faxed information to Caridad w/ [facility]. Caridad stated that she will review information and call me back. I attempted to contact patient's to update her: no answer at this time LVM. Addendum entered by [facility] 08/10/24 14:56: Rosalie w/ [facility] and Caridad w/ [facility] is still reviewing information. Addendum entered by [facility] 08/09/24 14:14: Per family request information has also been faxed to [facility] and [facility]. [facility] fax [phone] (Caridad) [facility] fax [phone] (Rosalie) Addendum entered by [facility] 08/09/24 12:37: Sheryl w/ [facility] is interested in this patient. Sheryl will reach out to patient's today. Addendum entered by [facility] 08/08/24 14:03: The facilities listed below are not able to accept patient at this time. is agreeable for information to be faxed to [facility] in [place]. Original Note: I received a consult on this patient regarding family interested in LTC placement. Patient did return home w/ family from ED. I called and spoke w/ patient's this AM. is interested in LTC under Medicaid and prefers the following facilities: [place], [facility], [facility], [facility] or [facility] (in this specific order). I will fax information to the listed facilities and continue to follow up w/ patient and his .
== END 2024-08-06 11:09 | disposition home or self-care (01) ==
PROVIDERS: Emergency Medicine; Emergency Provider Emergency Medicine; PCP Nurse Practitioner Family
DX: S22.41XA Multiple fractures of ribs, right side, initial encounter for closed fracture (principal); N40.1 Benign prostatic hyperplasia with lower urinary tract symptoms; F03.90 Unspecified dementia, unspecified severity, without behavioral disturbance, psychotic disturbance, mood disturbance, and anxiety; R41.82 Altered mental status, unspecified; R09.89 Other specified symptoms and signs involving the circulatory and respiratory systems; R10.11 Right upper quadrant pain; Z95.2 Presence of prosthetic heart valve; W19.XXXA Unspecified fall, initial encounter; Y93.9 Activity, unspecified; Y92.9 Unspecified place or not applicable
CPT/HCPCS: 71250; 73562; 80053; 80307; 80320; 81001; 85025; 85610; 99285; G0480

== ENCOUNTER 2024-09-13 08:37 | Outpatient (CLI) | payer MEDICARE, SELFPAY ==
--- NOTE | 2024-09-13 08:42 | XR_ITS ---
FINAL REPORT CLINICAL HISTORY: fx hip f/u COMPARISON: 07/26/2024 FINDINGS: AP and frog leg views of the left hip were obtained. Again seen are changes from left hip arthroplasty. The hardware appears intact. There is no acute fracture or dislocation. 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 The surgical skin chi have been removed. IMPRESSION: Postoperative changes without acute osseous abnormality of the left hip. Reviewed, Interpreted and Dictated by Agnieszka Cobb MD Transcribed by Gia Rutledge Authenticated and [facility]
== END 2024-09-13 23:59 | disposition home or self-care (01) ==
LOC: RAD 08:39
PROVIDERS: PCP Nurse Practitioner Family; Visit Provider Physician Assistant Surgical
DX: S72.002A Fracture of unspecified part of neck of left femur, initial encounter for closed fracture (principal)
CPT/HCPCS: 73502

== ENCOUNTER 2024-09-15 13:41 | Emergency (ER) | payer MEDICARE, SELFPAY ==
[2024-09-15] VITALS (9 sets, daily range): BP systolic 107–134; BP diastolic 49–68; PULSE 52–86; RESP 18–20; TEMP 36.4–36.8; O2SAT 97–100; BMI 23.6
--- NOTE | 2024-09-15 13:50 | ED_ITS ---
<Statement entered by Coleen Pratt MD - 09/16/24 15:50> I was consulted by the MIKKI, and we discussed the complexity of the problems being addressed. I approved the treatment and management plan for this patient's care in the emergency department, thus performing a substantive portion of the medical decision making. Coleen Pratt MD, ANN, FACEP Discharge Plan Disposition Patient Disposition: Home, Self-Care Condition: Good Prescriptions Prescriptions: New nitrofurantoin monohyd/m-cryst 100 mg capsule 100 mg PO BID 10 Days Qty: 20 0RF Rx Instructions: must administer with a meal/food No Action memantine 5 mg tablet 5 mg PO HS Patient Comments: TAKE ONE TABLET BY MOUTH EVERY DAY FOR memory sertraline [Zoloft] 25 mg tablet 25 mg PO DAILY Patient Comments: TAKE ONE TABLET BY MOUTH EVERY DAY AT bedtime FOR mood donepezil 5 mg tablet 5 mg PO HS Patient Comments: TAKE ONE TABLET BY MOUTH EVERY DAY FOR memory oxybutynin chloride 10 mg tablet extended release 24hr 10 mg PO DAILY Qty: 90 3RF risperidone 0.5 mg tablet 0.5 mg PO HS Qty: 30 0RF metoprolol succinate 50 mg tablet extended release 24 hr 100 mg PO DAILY spironolactone 25 mg tablet 12.5 mg PO DAILY Entresto 24-26 mg tablet 0.5 tab PO BID loratadine [Claritin] 10 mg Tablet 10 mg PO DAILY famotidine [Pepcid] 20 mg Tablet 20 mg PO DAILY tamsulosin [Flomax] 0.4 mg capsule 0.4 mg PO HS polyethylene glycol 3350 [HealthyLax] 17 gram Powder In Packet 17 g PO DAILY 30 Days Qty: 30 0RF aspirin 325 mg Tablet 325 mg PO BID 5 Days Qty: 10 0RF aspirin 325 mg capsule 325 mg PO BID 26 Days Qty: 52 0RF Referrals Follow up/Referrals: Fatou Armenta [Primary Care Provider] - See instructions Jose Garcia MD [Staff Physician] - See instructions Activity Restrictions/Add. Instructions Additional Instructions/Restrictions: Please call your hand sprayer/keep your cardiology appointment for tomorrow. I do recommend the compression stockings when they come in. Follow-up with your PCP for recheck within 48 hours. Return to ER for any worsening signs or symptoms as needed.. Clinical Impressions Clinical Impression: Chronic heart failure with preserved ejection fraction (HFpEF) Urinary tract infection Qualifiers: Urinary tract infection type: site unspecified Hematuria presence: with hematuria Qualified Code(s): N39.0 - Urinary tract infection, site not specified Instructions Patient Instructions: DI for Altered Mental Status Print Language Print Language: Kazakh Discharge ED Provider: Adam Day General Adult HPI General Chief complaint: Altered Mental Status Stated complaint: EDEMA Time Seen by Provider: 09/15/24 13:49 Mode of Arrival: EMS Source of Information: Patient and EMS Limitations: pt has dementia Description of Symptoms (Recalled from ER Triage Doc. by RN): confusion,leg edema,hypotension @ home. History of Present Illness HPI narrative: Patient presents for evaluation of low blood pressure and leg swelling. Patient has past medical history of a TAVR done at and follows with Dr. Tan, history of dementia with high functional level, and in June this year had an accidental fall suffering a left hip fracture that was operatively repaired here, referral to a intermediate facility for rehab which point he had another fall and fractured and broke ribs on the right side, and then according to the patient's they both contracted COVID and flu within the last month. Patient had actually been doing well in terms of his functional limitations post surgery however the last 1 to 2 weeks has had increasing weakness and is requiring more assistance from his to do his functional activities a day living such as getting out of bed. Today she was giving him a sponge bath and noted that his blood pressure was 80 systolic. She also noted that he has had some increasing fluid in his bilateral lower extremities. She denies however chest pain shortness of breath fever chills hemoptysis hematochezia melena nausea vomiting diarrhea. Related Data Home Medications ?Medication ?Instructions ?Recorded ?Confirmed famotidine 20 mg tablet (Pepcid) 20 mg PO DAILY 06/24/23 09/13/24 loratadine 10 mg tablet (Claritin) 10 mg PO DAILY 06/24/23 09/13/24 metoprolol succinate 50 mg 100 mg PO DAILY 06/24/23 09/13/24 tablet,extended release 24 hr sacubitril 24 mg-valsartan 26 mg 0.5 tab PO BID Heart Failure 06/24/23 09/13/24 tablet (Entresto) spironolactone 25 mg tablet 12.5 mg PO DAILY 06/24/23 09/13/24 donepezil 5 mg tablet 5 mg PO HS 05/09/24 09/13/24 memantine 5 mg tablet 5 mg PO HS 05/09/24 09/13/24 sertraline 25 mg tablet (Zoloft) 25 mg PO DAILY 05/09/24 09/13/24 tamsulosin 0.4 mg capsule (Flomax) 0.4 mg PO HS 07/13/24 09/13/24 Previous Rx's ?Medication ?Instructions ?Recorded oxybutynin chloride 10 mg 10 mg PO DAILY #90 tabs 07/04/24 tablet,extended release 24 hr aspirin 325 mg capsule 325 mg PO BID 26 days #52 caps 07/15/24 aspirin 325 mg tablet 325 mg PO BID 5 days #10 tabs 07/15/24 polyethylene glycol 3350 17 gram 17 g PO DAILY 30 days #30 ea 07/15/24 oral powder packet (HealthyLax) risperidone 0.5 mg tablet 0.5 mg PO HS #30 tabs 08/06/24 nitrofurantoin 100 mg PO BID 10 days #20 caps 09/15/24 monohydrate/macrocrystals 100 mg capsule Allergies Allergy/AdvReac Type Severity Reaction Status Date / Time ibuprofen Allergy Hives Verified 09/13/24 09:19 Sulfa (Sulfonamide Allergy Hives Verified 09/13/24 09:19 Antibiotics) [facility] Disclaimer: The information contained in this section may have been updated after the patient was seen, as this information can be updated by other users. Medical History Renal failure Pyuria Generalized weakness Hernia Chronic heart failure with preserved ejection fraction (HFpEF) Aortic valve disease Cardiac defibrillator in place Hypertension Surgical History History of biopsy of bladder Aortic valve replaced AICD (automatic cardioverter/defibrillator) present History of appendectomy Amputation finger Family History Mother Coronary artery disease Heart attack Father Dementia Other Family history of hypertension Social History Smoking Status: Never smoker alcohol intake: never substance use type: denies use current occupational status: retired and other Travel in the last 8 weeks: None Have you lived/traveled outside [place] in past 30 days?: No Contact w/someone who lives/traveled outside [place] past 30 days?: No Exposure to someone with infectious disease in past 14 days?: No Do you have a fever (greater than 100.4 F or 38 C)?: No Have you tested positive for COVID-19: No Exposed to someone with COVID-19 in past 14 days?: No Do you have a sore throat?: No Do you have a cough?: No Do you have any weakness?: No Do you have any diarrhea?: No Are you experiencing any unusual bleeding?: No Do you have any muscle aches/pain?: No Do you have any abdominal pain?: No Are you experiencing loss of taste or smell?: No Other Medical History Have you received the Flu Vaccine for this season: No Have you received the Pneumonia Vaccine: Yes ROS Obtained: Yes Systems reviewed as appropriate & no additional complaints except as documented Physical Exam General General appearance: alert and in no apparent distress Respiratory Respiratory exam: Present normal lung sounds bilaterally Cardiovascular Cardiovascular exam: Present regular rate Neurological Exam Neurological exam: Present alert and oriented X3 Medical Decision Making Medical Records Medical records reviewed: Yes I reviewed the patient's medical records. Screening: Per USPSTF and CDC recommendations, given the prevalence of disease in our region, it is our hospital?s policy to screen for HIV and viral Hepatitis for all patients aged 18 and over and those with ongoing risk factors. Alexx Inquiry Pt receiving controlled substance: No Vital Signs: 09/15/24 13:41 09/15/24 14:00 09/15/24 14:30 Temperature 97.6 F Temperature Source Oral Pulse Rate 55 L 52 L Pulse Rate [Right] 60 Respiratory Rate 18 Blood Pressure 126/59 L 107/52 L Blood Pressure [Right Arm] 127/68 Blood Pressure Mean [Right Arm] 87 02 Sat by Pulse Oximetry 100 100 99 Oxygen Delivery Method Room Air Room Air 09/15/24 15:01 09/15/24 15:30 09/15/24 16:00 Temperature Temperature Source Pulse Rate 58 L 66 58 L Pulse Rate [Right] Respiratory Rate Blood Pressure 109/49 L 118/54 L 116/59 L Blood Pressure [Right Arm] Blood Pressure Mean [Right Arm] 02 Sat by Pulse Oximetry 99 99 99 Oxygen Delivery Method Room Air 09/15/24 16:30 09/15/24 17:00 09/15/24 17:32 Temperature 98.2 F Temperature Source Pulse Rate 62 86 56 L Pulse Rate [Right] Respiratory Rate 20 Blood Pressure 108/60 L 134/59 L 134/59 L Blood Pressure [Right Arm] Blood Pressure Mean [Right Arm] 02 Sat by Pulse Oximetry 98 97 Oxygen Delivery Method Room Air Room Air Lab Data Lab results reviewed: Yes I reviewed the patient's lab results. Lab Results 09/15/24 14:00: WBC 9.4, RBC 3.41 L, Hgb 10.5 L, Hct 34.0 L, MCV 99.7 H, MCH 30.8, MCHC 30.9 L, RDW 13.6, Plt Count 208, MPV 9.2, Neut % (Auto) 63.4, Lymph % (Auto) 17.3, Morris % (Auto) 13.7 H, Eos % (Auto) 3.4, Baso % (Auto) 1.6, Neut # (Auto) 6.0, Lymph # (Auto) 1.6, Morris # (Auto) 1.3 H, Eos # (Auto) 0.3, Baso # (Auto) 0.2, Sodium 135 L, Potassium 5.0, Chloride 102, Carbon Dioxide 27, Anion Gap 11.0, BUN 39 H, Creatinine 1.20, Estimated Creat Clear 44, Estimated GFR 57 L, Est GFR ( Amer) 69, Glucose 79, Calcium 9.2, Magnesium 2.1, Total Bilirubin 0.3, AST 40, ALT 15, Alkaline Phosphatase 62, NT-Pro-B Natriuret Pep 899 H, Total Protein 6.5, Albumin 3.4 L, Globulin 3.1, Albumin/Globulin Ratio 1.1 09/15/24 16:29: Urine Color Yellow, Urine Appearance Slightly cloudy, Urine pH 6.0, Ur Specific [place] 1.025, Urine Protein Negative, Urine Glucose (UA) Negative, Urine Ketones Negative, Urine Blood Negative, Urine Nitrate Negative, Urine Bilirubin Negative, Urine Urobilinogen 0.2, Ur Leukocyte Esterase 1+ A, Urine RBC 10-20, Urine WBC Tntc, Ur Squamous Epith Cells 3-5, Urine Bacteria 2+, Urine Mucus 1+ 09/15/24 14:00 09/15/24 14:00 Orders (Tests/Meds): ED MEDICATIONS Discontinued Medications Generic Name Dose Route Start Last Admin Trade Name Morena PRN Reason Stop Dose Admin Furosemide 40 mg 09/15/24 16:48 09/15/24 16:56 Furosemide 40mg/4ml Vial IV 09/15/24 16:49 40 mg ONCE ONE Administration Nitrofurantoin Macrocrystals 100 mg 09/15/24 17:12 09/15/24 17:24 Nitrofurantoin 100mg Capsule PO 09/15/24 17:13 100 mg ONCE ONE Administration ORDERS Category Date Time Status Chest XR -- portable [XR chest portable] Stat Exams 09/15/24 14:39 Completed BNP [NT Pro Brain Natriuretic Pep.] Stat Lab 09/15/24 14:00 Completed CBC w/Auto Diff [Complete Blood Count Auto Diff] Stat Lab 09/15/24 14:00 Completed CMP [Comprehensive Metabolic Panel] Stat Lab 09/15/24 14:00 Completed Magnesium Stat Lab 09/15/24 14:00 Completed UA [Urinalysis and Microscopic] Stat Lab 09/15/24 16:29 Completed Urine Culture Stat Micro 09/15/24 16:29 Received Medical Decision Narrative: In summary patient is a 89-year-old male who presents to the emergency department for evaluation of low blood pressure and lower extremity edema. Patient is hemodynamically stable on arrival here at 127/68 with a pulse of 60 respiratory rate is 18 satting at 100% on room air upon arrival, afebrile at 97.6. Physical exam shows that the patient is interactive awake alert and appears oriented currently. Breath sounds reveals clear breath sounds without increased work of breathing or adventitious sounds, no abdominal tenderness, surgical site is well-healed, patient does have 3+ pitting edema in the bilateral lower extremities, left greater than right with no evidence of erythema or cellulitis. Differential diagnosis includes CHF exacerbation versus dependent edema versus infection versus COPD anterior etc. Initial workup will be conducted with hematologic labs plain film chest x-ray twelve-lead EKG urinalysis.. Initial interventions include are deferred for now as patient has no specific symptoms and is currently normotensive with normal heart rate. Initial workup reviewed by me shows that his white count is 9.4 hemoglobin and hematocrit are 10.5 and 30.4 respectively with an absolute neutrophil count of 6.0, CMP significant for sodium 135 BUN of 39 creatinine 1.2 GFR 57 and NT proBNP of 899 albumin of 3.4 urinalysis is negative on dipstick for ketones blood proteins are nitrites however 1+ leukocyte esterase, microscopic exam shows 10-20 red cells too numerous to count white cells 3-5 epithelial cells 2+ bacteria. Upon repeat evaluation patient's states that also in the last month that they have had COVID and flu however he did not require hospitalization and they seem to have covered without incident. Given this had interactive discussion with the patient's and the patient regarding our findings and recommendations. I feel that the patient likely has a CHF exacerbation but it could also be magnified by his recent respiratory infections with COVID and flu in addition to the fact that the patient still has ongoing evidence of a urinary tract infection. I discussed inpatient versus outpatient treatment and the risks and benefits of both and I offered inpatient admission versus outpatient management with her following up with cardiology tomorrow. Via patient directed decision making patient's initially indicated that she felt safe going home with follow-up with cardiology tomorrow. To that end I have ordered a prescription for Macrobid with the first dose given here, an additional dose of Lasix today prior to discharge as his renal function is acceptable and patient does not have an oxygen requirement I feel patient is able to be safely discharged with follow-up with his PCP within 48 hours and cardiology follow-up tomorrow. Critical Care Critical Care Time Critical Care Time: No
[2024-09-15 14:11] LABS: Basophils # 0.2 K/mm3 (0-0.2); Basophils % 1.6 % (0.1-2.0); Eosinophils # 0.3 K/mm3 (0.0-0.4); Eosinophils % 3.4 % (0.1-12.0); Hemoglobin 10.5 g/dL (14.1-18.0); Lymphocytes # 1.6 K/mm3 (0.7-4.5); Lymphocytes % 17.3 % (10-50); Mean Corpuscular HGB Conc 30.9 g/dL (31.8-35.4); Mean Corpuscular Hemoglobin 30.8 pg (27.0-31.2); Mean Corpuscular Volume 99.7 fl (80-94); Mean Platelet Volume 9.2 fl (7.4-10.4); Monocytes # 1.3 K/mm3 (0.1-1.0); Monocytes % 13.7 % (1.7-9.3); Neutrophils % 63.4 % (37.0-80.0); Platelet Count 208 K/mm3 (142-424); Red Blood Count 3.41 M/mm3 (4.60-6.20); Red Cell Distribution Width 13.6 % (11.5-17.5); White Blood Count 9.4 K/mm3 (4.8-10.8)
[2024-09-15 14:17] LABS: Albumin Level 3.4 g/dl (3.5-5.0); Chloride 102 mmol/L (98-107); Sodium 135 mmol/L (136-145)
[2024-09-15 14:19] LABS: Blood Urea Nitrogen 39 mg/dl (9-20); Carbon Dioxide 27 mmol/L (22.0-30.0); Creatinine Clearance Estimated 44 mL/min (50-200); Estimated Glomerular Filt Rate 57 ml/min (>60); GFR (African American) 69 ML/MIN (>60)
[2024-09-15 14:20] LABS: Alanine Aminotransferase 15 U/L (12-78); Albumin/Globulin Ratio 1.1 (1.1-1.8); Alkaline Phosphatase 62 U/L (38-126); Aspartate Amino Transferase 40 U/L (17-59); Bilirubin,Total 0.3 mg/dl (0.2-1.3); Calcium 9.2 mg/dl (8.4-10.2); Globulin 3.1 g/dL (1.3-3.2); Glucose 79 mg/dl (74-100); Magnesium 2.1 mg/dl (1.6-2.3); Total Protein,Serum 6.5 g/dl (6.3-8.2)
[2024-09-15 14:29] LABS: NT Pro Brain Natriuretic Pep. 899 pg/mL (0-450)
--- NOTE | 2024-09-15 14:39 | XR_ITS ---
FINAL REPORT CLINICAL HISTORY: History of CHF, dependent edema COMPARISON: 04/28/2024 FINDINGS: A portable view of the chest was obtained. A left AICD is unchanged. Cardiac and mediastinal silhouettes are within normal limits. There has been interval worsening of bilateral interstitial opacities and bibasilar airspace disease which could be related to pulmonary edema or, less likely, pneumonia. There is a small left pleural effusion. There is no pneumothorax. IMPRESSION: Interval worsening of bilateral interstitial opacities and bibasilar airspace edema could be related to pulmonary edema or, less likely, pneumonia. Reviewed, Interpreted and Dictated by Agnieszka Cobb MD Transcribed by Harriett Woodall Authenticated and [facility]
[2024-09-15 16:36] LABS: Microscopic, Urine URINE MICROSCOPIC (MICROSCOPIC)
[2024-09-15 16:40] LABS: Bilirubin,Urine Negative (Negative); Blood, Urine Negative (Negative); Color,Urine YELLOW (Yellow); Glucose,Urine (UA) Negative (Negative); Ketones,Urine Negative (Negative); Leukocyte Esterase,Urine 1+ (Negative); Nitrate,Urine Negative (Negative); Protein,Urine Negative (Negative); Specific Gravity, Urine 1.025 (1.005-1.030); Urobilinogen,Urine 0.2 EU/dl (0.2)
[2024-09-15] MEDS: FUROSEMIDE 40MG/4ML VIAL 40 MG IV (16:56)
[2024-09-15 17:08] LABS: Appearance,Urine Slightly Cloudy (Clear); WBC,Urine TNTC #/hpf (0-3)
[2024-09-15 17:09] LABS: Bacteria,Urine 2+ /lpf; Mucus,Urine 1+ /lpf
[2024-09-15] MEDS: NITROFURANTOIN 100MG CAPSULE 100 MG PO (17:24)
--- NOTE | 2024-09-15 17:40 | PC.NURSE ---
DR COYNE AT BEDSIDE TO UPDATE
== END 2024-09-15 18:07 | disposition home or self-care (01) ==
PROVIDERS: Physician Assistant; Emergency Provider Emergency Medicine; PCP Nurse Practitioner Family
DX: I50.32 Chronic diastolic (congestive) heart failure (principal); N39.0 Urinary tract infection, site not specified; R41.82 Altered mental status, unspecified; R22.43 Localized swelling, mass and lump, lower limb, bilateral; I95.9 Hypotension, unspecified
CPT/HCPCS: 71045; 80053; 81001; 83735; 83880; 85025; 87086; 96374; 99283; J1940

== ENCOUNTER 2024-10-06 11:16 | Observation (INO) | payer MEDICARE, SELFPAY ==
[2024-10-06] VITALS (13 sets, daily range): BP systolic 94–127; BP diastolic 50–65; PULSE 59–81; RESP 12–18; TEMP 36.4–36.9; O2SAT 97–100; BMI 21.9; BMI 21.7
--- NOTE | 2024-10-06 11:19 | ECG_ITS ---
APPROVED REPORT Exam: Resting ECG HR:64 bpm ECG Measurements Heart Rate 64 AXES HI 185 P 61 QRSd 146 QRS 104 QT 435 T 43 QTc 445 Conclusion SINUS RHYTHM WITH OCCASIONAL VENTRICULAR PREMATURE COMPLEXES RIGHT AXIS DEVIATION [QRS AXIS > 100] RIGHT BUNDLE BRANCH BLOCK [120+ ms QRS DURATION, UPRIGHT V1, 40+ ms S IN I/aVL/V4/V5/V6] No STEMI Electronically signed by : DANISHA OWEN, 10/09/2024 06:47:07
--- NOTE | 2024-10-06 12:10 | HMH.EDGENADL ---
Discharge Plan Disposition Patient Disposition: Admitted Condition: Fair Clinical Impressions Clinical Impression: Declining functional status, Adult failure to thrive Dementia Qualifiers: Dementia type: unspecified type Dementia severity: moderate Discharge ED Provider: Chad Irwin Adult HPI <AYALA Egan - Last Filed: 10/06/24 21:43> General Chief complaint: Recheck/Abnormal Lab/Rx Stated complaint: LOW BP? Time Seen by Provider: 10/06/24 12:10 Mode of Arrival: EMS Source of Information: Patient and EMS Limitations: No Limitations Description of Symptoms (Recalled from ER Triage Doc. by RN): per home health nurse pt was hypotensive. denies other symptoms. History of Present Illness HPI narrative: Patient brought to the emergency department ostensibly initially for evaluation of hypotension. 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 Patient has had a significant functional decline with multiple falls and the injuries mentioned above in the last 2 to 3 months. He has been admitted several times however has gotten progressively and progressively weaker. He lives at home was with who has now become his primary caregiver. Unfortunately patient is unable to care for himself anymore and neither is his . She actually states that she brought him in for placement as she cannot care for him anymore. Patient had a low pressure registered by the home health nurse however that is near his baseline. Currently patient denies fever chills hemoptysis hematochezia melena nausea vomiting diarrhea or any complaints of pain. Related Data Home Medications ?Medication ?Instructions ?Recorded ?Confirmed famotidine 20 mg tablet (Pepcid) 20 mg PO DAILY 06/24/23 10/06/24 loratadine 10 mg tablet (Claritin) 10 mg PO DAILY 06/24/23 10/06/24 metoprolol succinate 50 mg 100 mg PO DAILY 06/24/23 10/06/24 tablet,extended release 24 hr spironolactone 25 mg tablet 12.5 mg PO DAILY 06/24/23 10/06/24 donepezil 5 mg tablet 5 mg PO HS 05/09/24 10/06/24 memantine 5 mg tablet 5 mg PO HS 05/09/24 10/06/24 sertraline 25 mg tablet (Zoloft) 25 mg PO DAILY 05/09/24 10/06/24 aspirin 81 mg chewable tablet 81 mg PO DAILY 10/06/24 10/06/24 furosemide 20 mg tablet (Lasix) 20 mg PO DAILY 10/06/24 10/06/24 polyethylene glycol 3350 17 gram 17 g PO DAILY PRN Constipation 10/06/24 10/06/24 oral powder packet (HealthyLax) risperidone 0.5 mg tablet 1 mg PO DAILY 10/06/24 10/06/24 risperidone 2 mg tablet 2 mg PO HS 10/06/24 10/06/24 Previous Rx's ?Medication ?Instructions ?Recorded oxybutynin chloride 10 mg 10 mg PO DAILY #90 tabs 07/04/24 tablet,extended release 24 hr Allergies Allergy/AdvReac Type Severity Reaction Status Date / Time ibuprofen Allergy Hives Verified 09/13/24 09:19 Sulfa (Sulfonamide Allergy Hives Verified 09/13/24 09:19 Antibiotics) [facility] <AYALA Egan - Last Filed: 10/06/24 21:43> [facility] Disclaimer: The information contained in this section may have been updated after the patient was seen, as this information can be updated by other users. Medical History (Updated 10/06/24 @ 17:28 by Yefri Weinberg MD) Renal failure Pyuria Generalized weakness Hernia Chronic heart failure with preserved ejection fraction (HFpEF) Aortic valve disease Cardiac defibrillator in place Hypertension Surgical History History of biopsy of bladder Aortic valve replaced AICD (automatic cardioverter/defibrillator) present History of appendectomy Amputation finger Family History Mother Coronary artery disease Heart attack Father Dementia Other Family history of hypertension Social History Smoking Status: Never smoker alcohol intake: never substance use type: denies use current occupational status: retired and other Travel in the last 8 weeks: None Have you lived/traveled outside US in past 30 days?: No Contact w/someone who lives/traveled outside US past 30 days?: No Exposure to someone with infectious disease in past 14 days?: No Do you have a fever (greater than 100.4 F or 38 C)?: No Have you tested positive for COVID-19: No Exposed to someone with COVID-19 in past 14 days?: No Do you have a sore throat?: No Do you have a cough?: No Do you have any weakness?: Yes Do you have any diarrhea?: No Are you experiencing any unusual bleeding?: No Do you have any muscle aches/pain?: No Do you have any abdominal pain?: No Are you experiencing loss of taste or smell?: No Other Medical History Have you received the Flu Vaccine for this season: No Have you received the Pneumonia Vaccine: Yes <AYALA Egan - Last Filed: 10/06/24 21:43> ROS Obtained: Yes Systems reviewed as appropriate & no additional complaints except as documented Physical Exam <AYALA Egan - Last Filed: 10/06/24 21:43> General General appearance: alert and in no apparent distress Respiratory Respiratory exam: Present normal lung sounds bilaterally Cardiovascular Cardiovascular exam: Present regular rate Neurological Exam Neurological exam: Present alert, oriented X3 and CN II-XII intact Medical Decision Making <AYALA Egan - Last Filed: 10/06/24 21:43> Medical Records Medical records reviewed: Yes I reviewed the patient's medical records. Screening: Per USPSTF and CDC recommendations, given the prevalence of disease in our region, it is our hospital?s policy to screen for HIV and viral Hepatitis for all patients aged 18 and over and those with ongoing risk factors. Alexx Inquiry Pt receiving controlled substance: No Vital Signs: 10/06/24 11:16 10/06/24 11:28 10/06/24 11:30 Temperature 97.9 F Temperature Source Oral Pulse Rate 64 74 Pulse Rate [Right] 63 Respiratory Rate 16 13 13 Blood Pressure 101/52 L 102/60 L Blood Pressure [Right Arm] 106/58 L Blood Pressure Mean Blood Pressure Mean [Right Arm] 74 Blood Pressure Source [Right Arm] Blood Pressure Position [Right Arm] 02 Sat by Pulse Oximetry 98 99 100 Oxygen Delivery Method Room Air Room Air Room Air 10/06/24 12:00 10/06/24 12:30 10/06/24 13:00 Temperature Temperature Source Pulse Rate 59 L 60 Pulse Rate [Right] Respiratory Rate 12 16 Blood Pressure 94/50 L 102/53 L 112/57 L Blood Pressure [Right Arm] Blood Pressure Mean 75 Blood Pressure Mean [Right Arm] Blood Pressure Source [Right Arm] Blood Pressure Position [Right Arm] 02 Sat by Pulse Oximetry 99 100 Oxygen Delivery Method Room Air 10/06/24 13:13 10/06/24 13:30 10/06/24 13:30 Temperature 97.9 F Temperature Source Pulse Rate 59 L 59 L Pulse Rate [Right] Respiratory Rate 16 Blood Pressure 113/65 113/65 113/60 Blood Pressure [Right Arm] Blood Pressure Mean 79 Blood Pressure Mean [Right Arm] Blood Pressure Source [Right Arm] Blood Pressure Position [Right Arm] 02 Sat by Pulse Oximetry 99 99 Oxygen Delivery Method 10/06/24 14:00 10/06/24 14:15 10/06/24 14:30 Temperature Temperature Source Pulse Rate 61 59 L Pulse Rate [Right] Respiratory Rate Blood Pressure 127/62 119/54 L Blood Pressure [Right Arm] Blood Pressure Mean Blood Pressure Mean [Right Arm] Blood Pressure Source [Right Arm] Blood Pressure Position [Right Arm] 02 Sat by Pulse Oximetry 99 99 Oxygen Delivery Method Room Air Room Air Room Air 10/06/24 14:43 Temperature 97.6 F Temperature Source Oral Pulse Rate Pulse Rate [Right] 61 Respiratory Rate 16 Blood Pressure Blood Pressure [Right Arm] 110/52 L Blood Pressure Mean Blood Pressure Mean [Right Arm] 71 Blood Pressure Source [Right Arm] Automatic Cuff Blood Pressure Position [Right Arm] Supine 02 Sat by Pulse Oximetry 99 Oxygen Delivery Method Room Air Lab Data Lab Results 10/06/24 12:15: WBC 9.7, RBC 3.19 L, Hgb 10.1 L, Hct 31.5 L, MCV 98.7 H, MCH 31.7 H, MCHC 32.1, RDW 13.1, Plt Count 227, MPV 9.2, Neut % (Auto) 68.0, Lymph % (Auto) 12.0, Mcdonald % (Auto) 14.7 H, Eos % (Auto) 3.0, Baso % (Auto) 1.7, Neut # (Auto) 6.6, Lymph # (Auto) 1.2, Mcdonald # (Auto) 1.4 H, Eos # (Auto) 0.3, Baso # (Auto) 0.2, Sodium 138, Potassium 4.3, Chloride 103, Carbon Dioxide 28, Anion Gap 11.3, BUN 30 H, Creatinine 1.10, Estimated Creat Clear 42, Estimated GFR 63, Est GFR ( Amer) 76, Glucose 129 H, Calcium 9.0, Magnesium 1.9, Total Bilirubin 0.2, AST 29, ALT 19, Alkaline Phosphatase 66, Total Creatine Kinase 34 L, Total Protein 6.2 L, Albumin 3.1 L, Globulin 3.1, Albumin/Globulin Ratio 1.0 L, Procalcitonin 0.073 10/06/24 12:15 10/06/24 12:15 Orders (Tests/Meds): ED MEDICATIONS Generic Name Dose Route Start Last Admin Trade Name Freq PRN Reason Stop Dose Admin Acetaminophen 500 mg 10/06/24 22:03 10/06/24 22:10 Acetaminophen 500mg Tab PO 11/05/24 22:02 500 mg Q6HP PRN Administration Headache Aspirin 81 mg 10/07/24 09:00 Aspirin 81mg Chewable Tablet PO 11/06/24 08:59 DAILY CECE Donepezil HCl 5 mg 10/06/24 21:00 10/06/24 21:29 Donepezil 5mg Tab PO 11/05/24 20:59 5 mg HS CECE Administration Famotidine 20 mg 10/07/24 09:00 Famotidine 20mg Tablet PO 11/06/24 08:59 DAILY CECE Loratadine 10 mg 10/07/24 09:00 Loratadine 10mg Tablet PO 11/06/24 08:59 DAILY CECE Metoprolol Succinate 50 mg 10/07/24 09:00 Metoprolol Succinate Xl 50mg Tablet PO 11/06/24 08:59 DAILY CECE Non-Formulary Medication 5 mg 10/06/24 21:00 10/06/24 21:31 Memantine PO 11/05/24 20:59 5 mg HS CECE Administration Non-Formulary Medication 2 mg 10/06/24 21:00 10/06/24 21:29 Risperidone PO 11/05/24 20:59 2 mg HS CECE Administration Non-Formulary Medication 25 mg 10/07/24 09:00 Sertraline [Zoloft] PO 11/06/24 08:59 DAILY CECE Oxybutynin Chloride 5 mg 10/06/24 21:00 10/06/24 21:29 Oxybutynin 5mg Tab PO 11/05/24 20:59 5 mg BID CECE Administration Polyethylene Glycol 17 gm 10/06/24 17:25 Polyethylene Glycol 3350 17 Gm Packet PO 11/05/24 17:24 DAILY PRN Constipation Risperidone 1 mg 10/07/24 09:00 Risperidone 0.5 Mg Tablet PO 11/06/24 08:59 DAILY CECE Discontinued Medications Generic Name Dose Route Start Last Admin Trade Name Freq PRN Reason Stop Dose Admin Lactated Ringer's 1,980 mls @ 990 mls/hr 10/06/24 12:33 10/06/24 13:00 Lactated Ringer's 1000 Ml Bag 30 ml/kg infuse over 2 hr (1980 ml) 10/06/24 14:32 990 mls/hr IV Administration .Q2H ONE ORDERS Category Date Time Status Consult to Case Management [CONS] Routine Cons 10/06/24 11:37 Active CBC w/Auto Diff [Complete Blood Count Auto Diff] Stat Lab 10/06/24 12:15 Completed CK [Creatine Kinase] Stat Lab 10/06/24 12:15 Completed CMP [Comprehensive Metabolic Panel] Stat Lab 10/06/24 12:15 Completed Complete Blood Count Auto Diff AMLAB Lab 10/07/24 06:00 Ordered Comprehensive Metabolic Panel AMLAB Lab 10/07/24 06:00 Ordered Magnesium AMLAB Lab 10/07/24 06:00 Ordered Magnesium Stat Lab 10/06/24 12:15 Completed Procalcitonin Stat Lab 10/06/24 12:15 Completed UA [Urinalysis and Microscopic] Stat Lab 10/06/24 16:15 Completed Blood Culture Stat Micro 10/06/24 13:51 Stop Req Medical Decision Narrative: In summary patient is a 89-year-old male who presents to the emergency department for evaluation of functional decline and failure to thrive. Patient is normotensive at the time of my evaluation at 106/58 with a pulse of 63 breathing 16 times a minute satting at 98% on room air upon arrival, afebrile at 97.9. Physical exam shows an unwell appearing 89-year-old gentleman who otherwise is in no acute distress breath sounds are clear and equal bilaterally without adventitious sounds. Bowel sounds are normal with no abdominal tenderness. Patient is at his functional baseline is awake alert and pleasantly confused.. Differential diagnosis includes occult infection versus urinary tract infection versus failure to thrive versus functional decline etc. Initial workup will be conducted with hematologic labs urinalysis PT OT evaluation and case management consult.. Initial interventions gentle fluid hydration for now. Initial workup reviewed by me shows that his hematologic labs are nonactionable with normal white count H&H of 10.1 and 31.5 respectively with an absolute neutrophil count nine 6.6 CK of 34 albumin of 3.1 procalcitonin 0.073 urinalysis is bland with no evidence of urinary tract infection currently. PT OT evaluates and states that patient is unsafe to be at home and meets criteria for placement.. Given this I had interactive discussion with case management and hospital medicine regarding patient CROCKETT findings and patient management and we jointly agreed the patient will be admitted for further evaluation and care and evaluation for placement. <Adam Day MD - Last Filed: 10/06/24 22:19> Vital Signs: 10/06/24 11:16 10/06/24 11:28 10/06/24 11:30 Temperature 97.9 F Temperature Source Oral Pulse Rate 64 74 Pulse Rate [Right] 63 Respiratory Rate 16 13 13 Blood Pressure 101/52 L 102/60 L Blood Pressure [Right Arm] 106/58 L Blood Pressure Mean Blood Pressure Mean [Right Arm] 74 Blood Pressure Source [Right Arm] Blood Pressure Position [Right Arm] 02 Sat by Pulse Oximetry 98 99 100 Oxygen Delivery Method Room Air Room Air Room Air 10/06/24 12:00 10/06/24 12:30 10/06/24 13:00 Temperature Temperature Source Pulse Rate 59 L 60 Pulse Rate [Right] Respiratory Rate 12 16 Blood Pressure 94/50 L 102/53 L 112/57 L Blood Pressure [Right Arm] Blood Pressure Mean 75 Blood Pressure Mean [Right Arm] Blood Pressure Source [Right Arm] Blood Pressure Position [Right Arm] 02 Sat by Pulse Oximetry 99 100 Oxygen Delivery Method Room Air 10/06/24 13:13 10/06/24 13:30 10/06/24 13:30 Temperature 97.9 F Temperature Source Pulse Rate 59 L 59 L Pulse Rate [Right] Respiratory Rate 16 Blood Pressure 113/65 113/65 113/60 Blood Pressure [Right Arm] Blood Pressure Mean 79 Blood Pressure Mean [Right Arm] Blood Pressure Source [Right Arm] Blood Pressure Position [Right Arm] 02 Sat by Pulse Oximetry 99 99 Oxygen Delivery Method 10/06/24 14:00 10/06/24 14:15 10/06/24 14:30 Temperature Temperature Source Pulse Rate 61 59 L Pulse Rate [Right] Respiratory Rate Blood Pressure 127/62 119/54 L Blood Pressure [Right Arm] Blood Pressure Mean Blood Pressure Mean [Right Arm] Blood Pressure Source [Right Arm] Blood Pressure Position [Right Arm] 02 Sat by Pulse Oximetry 99 99 Oxygen Delivery Method Room Air Room Air Room Air 10/06/24 14:43 Temperature 97.6 F Temperature Source Oral Pulse Rate Pulse Rate [Right] 61 Respiratory Rate 16 Blood Pressure Blood Pressure [Right Arm] 110/52 L Blood Pressure Mean Blood Pressure Mean [Right Arm] 71 Blood Pressure Source [Right Arm] Automatic Cuff Blood Pressure Position [Right Arm] Supine 02 Sat by Pulse Oximetry 99 Oxygen Delivery Method Room Air Lab Data Lab Results 10/06/24 12:15: WBC 9.7, RBC 3.19 L, Hgb 10.1 L, Hct 31.5 L, MCV 98.7 H, MCH 31.7 H, MCHC 32.1, RDW 13.1, Plt Count 227, MPV 9.2, Neut % (Auto) 68.0, Lymph % (Auto) 12.0, Mcdonald % (Auto) 14.7 H, Eos % (Auto) 3.0, Baso % (Auto) 1.7, Neut # (Auto) 6.6, Lymph # (Auto) 1.2, Mcdonald # (Auto) 1.4 H, Eos # (Auto) 0.3, Baso # (Auto) 0.2, Sodium 138, Potassium 4.3, Chloride 103, Carbon Dioxide 28, Anion Gap 11.3, BUN 30 H, Creatinine 1.10, Estimated Creat Clear 42, Estimated GFR 63, Est GFR ( Amer) 76, Glucose 129 H, Calcium 9.0, Magnesium 1.9, Total Bilirubin 0.2, AST 29, ALT 19, Alkaline Phosphatase 66, Total Creatine Kinase 34 L, Total Protein 6.2 L, Albumin 3.1 L, Globulin 3.1, Albumin/Globulin Ratio 1.0 L, Procalcitonin 0.073 Orders (Tests/Meds): ED MEDICATIONS Generic Name Dose Route Start Last Admin Trade Name Freq PRN Reason Stop Dose Admin Acetaminophen 500 mg 10/06/24 22:03 10/06/24 22:10 Acetaminophen 500mg Tab PO 11/05/24 22:02 500 mg Q6HP PRN Administration Headache Aspirin 81 mg 10/07/24 09:00 Aspirin 81mg Chewable Tablet PO 11/06/24 08:59 DAILY CECE Donepezil HCl 5 mg 10/06/24 21:00 10/06/24 21:29 Donepezil 5mg Tab PO 11/05/24 20:59 5 mg HS CECE Administration Famotidine 20 mg 10/07/24 09:00 Famotidine 20mg Tablet PO 11/06/24 08:59 DAILY CECE Loratadine 10 mg 10/07/24 09:00 Loratadine 10mg Tablet PO 11/06/24 08:59 DAILY CECE Metoprolol Succinate 50 mg 10/07/24 09:00 Metoprolol Succinate Xl 50mg Tablet PO 11/06/24 08:59 DAILY CECE Non-Formulary Medication 5 mg 10/06/24 21:00 10/06/24 21:31 Memantine PO 11/05/24 20:59 5 mg HS CECE Administration Non-Formulary Medication 2 mg 10/06/24 21:00 10/06/24 21:29 Risperidone PO 11/05/24 20:59 2 mg HS CECE Administration Non-Formulary Medication 25 mg 10/07/24 09:00 Sertraline [Zoloft] PO 11/06/24 08:59 DAILY CECE Oxybutynin Chloride 5 mg 10/06/24 21:00 10/06/24 21:29 Oxybutynin 5mg Tab PO 11/05/24 20:59 5 mg BID CECE Administration Polyethylene Glycol 17 gm 10/06/24 17:25 Polyethylene Glycol 3350 17 Gm Packet PO 11/05/24 17:24 DAILY PRN Constipation Risperidone 1 mg 10/07/24 09:00 Risperidone 0.5 Mg Tablet PO 11/06/24 08:59 DAILY CECE Discontinued Medications Generic Name Dose Route Start Last Admin Trade Name Freq PRN Reason Stop Dose Admin Lactated Ringer's 1,980 mls @ 990 mls/hr 10/06/24 12:33 10/06/24 13:00 Lactated Ringer's 1000 Ml Bag 30 ml/kg infuse over 2 hr (1980 ml) 10/06/24 14:32 990 mls/hr IV Administration .Q2H ONE ORDERS Category Date Time Status Consult to Case Management [CONS] Routine Cons 10/06/24 11:37 Active CBC w/Auto Diff [Complete Blood Count Auto Diff] Stat Lab 10/06/24 12:15 Completed CK [Creatine Kinase] Stat Lab 10/06/24 12:15 Completed CMP [Comprehensive Metabolic Panel] Stat Lab 10/06/24 12:15 Completed Complete Blood Count Auto Diff AMLAB Lab 10/07/24 06:00 Ordered Comprehensive Metabolic Panel AMLAB Lab 10/07/24 06:00 Ordered Magnesium AMLAB Lab 10/07/24 06:00 Ordered Magnesium Stat Lab 10/06/24 12:15 Completed Procalcitonin Stat Lab 10/06/24 12:15 Completed UA [Urinalysis and Microscopic] Stat Lab 10/06/24 16:15 Completed Blood Culture Stat Micro 10/06/24 13:51 Stop Req Medical Decision Narrative: In summary patient is a 89-year-old male who presents to the emergency department for evaluation of functional decline and failure to thrive. Patient is normotensive at the time of my evaluation at 106/58 with a pulse of 63 breathing 16 times a minute satting at 98% on room air upon arrival, afebrile at 97.9. Physical exam shows an unwell appearing 89-year-old gentleman who otherwise is in no acute distress breath sounds are clear and equal bilaterally without adventitious sounds. Bowel sounds are normal with no abdominal tenderness. Patient is at his functional baseline is awake alert and pleasantly confused.. Differential diagnosis includes occult infection versus urinary tract infection versus failure to thrive versus functional decline etc. Initial workup will be conducted with hematologic labs urinalysis PT OT evaluation and case management consult.. Initial interventions gentle fluid hydration for now. Initial workup reviewed by me shows that his hematologic labs are nonactionable with normal white count H&H of 10.1 and 31.5 respectively with an absolute neutrophil count nine 6.6 CK of 34 albumin of 3.1 procalcitonin 0.073 urinalysis is bland with no evidence of urinary tract infection currently. PT OT evaluates and states that patient is unsafe to be at home and meets criteria for placement.. Given this I had interactive discussion with case management and hospital medicine regarding patient CROCKETT findings and patient management and we jointly agreed the patient will be admitted for further evaluation and care and evaluation for placement. I was consulted by the MIKKI, and we discussed the complexity of the problems being addressed. I approved the treatment and management plan for this patient's care in the Emergency Department, thus performing a substantive portion of the medical decision making. Adam Day MD Critical Care <AYALA Egan - Last Filed: 10/06/24 21:43> Critical Care Time Critical Care Time: No
[2024-10-06 12:21] LABS: Basophils # 0.2 K/mm3 (0-0.2); Basophils % 1.7 % (0.1-2.0); Eosinophils # 0.3 K/mm3 (0.0-0.4); Hematocrit 31.5 % (42.0-52.0); Hemoglobin 10.1 g/dL (14.1-18.0); Lymphocytes # 1.2 K/mm3 (0.7-4.5); Mean Corpuscular HGB Conc 32.1 g/dL (31.8-35.4); Mean Corpuscular Hemoglobin 31.7 pg (27.0-31.2); Mean Corpuscular Volume 98.7 fl (80-94); Mean Platelet Volume 9.2 fl (7.4-10.4); Monocytes # 1.4 K/mm3 (0.1-1.0); Monocytes % 14.7 % (1.7-9.3); Neutrophils # 6.6 K/mm3 (1.8-7.8); Platelet Count 227 K/mm3 (142-424); Red Blood Count 3.19 M/mm3 (4.60-6.20); Red Cell Distribution Width 13.1 % (11.5-17.5); White Blood Count 9.7 K/mm3 (4.8-10.8)
[2024-10-06 12:27] LABS: Albumin Level 3.1 g/dl (3.5-5.0); Chloride 103 mmol/L (98-107); Sodium 138 mmol/L (136-145)
[2024-10-06 12:28] LABS: Potassium 4.3 mmoL/L (3.5-5.1)
[2024-10-06 12:30] LABS: Alanine Aminotransferase 19 U/L (12-78); Alkaline Phosphatase 66 U/L (38-126); Anion Gap 11.3 mEq/L (5-15); Aspartate Amino Transferase 29 U/L (17-59); Bilirubin,Total 0.2 mg/dl (0.2-1.3); Blood Urea Nitrogen 30 mg/dl (9-20); Carbon Dioxide 28 mmol/L (22.0-30.0); Creatinine Clearance Estimated 42 mL/min (50-200); Estimated Glomerular Filt Rate 63 ml/min (>60); GFR (African American) 76 ML/MIN (>60)
[2024-10-06 12:31] LABS: Creatine Kinase 34 U/L (55-170); Globulin 3.1 g/dL (1.3-3.2); Glucose 129 mg/dl (74-100); Total Protein,Serum 6.2 g/dl (6.3-8.2)
--- NOTE | 2024-10-06 12:37 | SW/DCPLANNER ---
Addendum entered by Anne-Marie Steinberg 10/07/24 09:31: Per Maya patient has been approved SNF level of care. Maya has requested that patient wait till this evening to admit due to room clean at [facility]. I will relay information to MD and nursing staff. Addendum entered by Anne-Maire Steinberg 10/06/24 14:57: Per Maya w/ [facility] auth will be started today. Addendum entered by Anne-Marie Steinberg 10/06/24 13:24: PT/OT has recommended SNF level of care at this time. Patient information has been faxed to [facility]. Original Note: I spoke w/ patient's regarding plans once patient is medically stable for discharge. PT/OT has been ordered to evaluate patient in ED. stated that patient is currently established w/ [facility]. Per the patient was at [facility] Jul. stated that they are interested in returning to [facility] to help regain his strength. Once therapy evaluations are completed I will return to ED and speak w/ patient and . voiced that she is only interested in short term placement not currently interested in LTC.
[2024-10-06 13:00] LABS: Magnesium 1.9 mg/dl (1.6-2.3)
[2024-10-06] MEDS: LACTATED RINGERS 1000ML 1,980 ML 990 ML IV (13:00)
--- NOTE | 2024-10-06 13:15 | PC.NURSE ---
PT/OT @ bedside
--- NOTE | 2024-10-06 13:55 | HMH.PTEV ---
Physical Therapy Evaluation Rehab PT IP Evaluation Start: 10/06/24 11:56 Freq: .once Status: Active Protocol: Document 10/06/24 13:41 AI (Rec: 10/06/24 13:55 AI [id number]) Subjective/History History History Pt is an 89 y/o male who presents to ER d/t worsening weakness. Pt reports he lives with his . provided most of history d/t pt's cognition. Pt requires assistance from with all mobility. Pt uses a RW. Pt's reports difficulty assisting pt d/t growing care needs. Subjective Subjective Pt agreeable to mobility assessment. New diagnosis of cancer in past 12 No months? Rehab PT IP Eval Objective Appearance Patient Behavior Appropriate,Cooperative Patient Orientation Person,Place,Birthday Difficulty following instructions none Speech Pattern Clear Ambulation Patient Able to Ambulate No Ambulation Observation IP General Gait Pattern Observation Wide Based Gait Ambulation Distance (feet) 2 Ambulation Assistive Device None Ambulation Ability Moderate x 1 (50% assist) Balance Ability to Arise Unable Sitting Balance Steady, safe Standing Balance Unsteady Transfers Bed Transfer Ability Moderate x 1 (50% assist) Sit to Stand Bed Transfer Ability Moderate x 2 (50% assist) Rehab PT IP prob,goals,plan Problems Date of Evaluation: 10/06/24 PT IP Problems Bed Mobility,Transfers,Gait, Balance,Self care,Safety Rehab Potential Rehab Potential Good Plan PT Intervention Plan Bed Mobility,Transfers,Gait, Balance,Self care,Safety, Therapeutic Exercise Other Intervention Plan 1-2 times PT Plan Frequency Daily Duration LOS Discharge Goals Bed Transfer Ability Minimal x 1 (25% assist) Sit to Stand Chair Transfer Ability Minimal x 2 (25% assist) Discharge Plan PT Discharge Plan Initial physical therapy evaluation performed. Patient presents below baseline at this time in functional mobility, transfers, and strength. Pt not safe to return home at this time d/t current level of functional mobility. PT recommending short-term rehabilitation stay upon d/c from [facility]. Pt would benefit from skilled PT while at [facility] to prevent further functional decline and maximize safety with mobility. Eval Complexity Eval Charge Codes 92139 - Moderate Complexity PHYSICIAN CERTIFICATION: I certify the specified therapy services for Rah Floyd are required, authorized, and reviewed every 30 days.
[2024-10-06 13:59] LABS: Procalcitonin 0.073 ng/mL (0.0-2.0)
--- NOTE | 2024-10-06 13:59 | HMH.OTEV ---
OT Inpatient Evaluation Rehab OT IP Evaluation Start: 10/06/24 12:10 Freq: ONCE Status: Active Protocol: Document 10/06/24 13:53 [facility] (Rec[facility] 10/06/24 13[facility]59 [id number] OT IP Assessment Subjective History Pt oriented x 2 on arrival. Pt agreeable to engage in therapy evaluation. Pt's present and supportive. Pt came to ER today due to weakness and low blood pressure. Pt's provides information about pt's prior level of functioning. reports concern about his consistent decline in functional ability over the past few weeks. Normally he requires assistance with dressing and bathing. He is dependent on for completion of all IADLs. Pt does use a rolling walker during functional transfers. Pt's claims recently he has began having more difficulty with functional transfers as well. Subjective I do feel tired today. Objective Patient Orientation Person,Name Right Upper Extremity Gross ROM Min Limitation <25% Left Upper Extremity Gross ROM Min Limitation <25% Shoulder ROM Limitations Muscle Weakness Elbow ROM Limitations Muscle Weakness Wrist Limitations of Range of Motion Muscle Weakness Bed Mobility bed mobility-scooting,bed mobility - supine/sit Assist Level Minimal x 2 (25% assist) Transfer Training Sit/Stand Transfer Assist Level Moderate x 1 (50% assist) Rehab OT IP prob,goals,plan Problems Date of Evaluation: 10/06/24 OT IP Problems Bed Mobility,Transfers,Balance ,Self care,Safety Rehab Potential Rehab Potential Good Equipment Needs Assistive Devices Rolling / Wheeled Walker Plan OT intervention Plan Bed Mobility,Transfers,Balance ,Self care,Safety,Therapeutic Exercise OT Plan Frequency Daily Duration LOS Discharge Goals Bed Mobility Ability Assistance x1 Sit to Stand Chair Transfer Ability Minimal x 1 (25% assist) Chair Transfer Ability Minimal x 1 (25% assist) Chair Transfer Technique Sit to/from Ambulatory Chair Transfer Assistive Devices Rolling Walker Feeding Ability Assist with Tray Set Up Lower Body Dressing Ability Minimal Assistance Upper Body Dressing Ability Standby Assistance Bathing Ability Minimal Assistance Performing Toilet Hygiene Ability Minimal Assistance Overall Commode/Toilet Transfer Ability Minimal Assistance Commode/Toilet Transfer Technique Sit to/from Ambulatory Commode/Toilet Transfer Assistive Grab Bars Devices Discharge Plan OT Discharge Plan Pt will continue to be seen for OT services while at [facility]. At this time, pt would benefit most from short term rehab at SNF due continued decline with functional ability. Continued skilled therapy is important in order for patient to improve strength, safety, endurance, ADL independence, and functional transfers to reach PLOF. Eval Complexity Eval Charge Codes 72394 - Moderate Complexity PHYSICIAN CERTIFICATION: I certify the specified therapy services for Rah Floyd are required, authorized, and reviewed every 30 days.
--- NOTE | 2024-10-06 14:07 | P.HP_ITS ---
History of Present Illness *Admission Date: 10/06/24 *Reason for visit:: weakness *History of present illness: Mr. Floyd is an 89-year-old male with history of hip fracture the end of June, status post hemiarthroplasty. Treated at [facility] for rehab, did well and eventually went home. Has had progressive decline since. Previous attempts made to place patient from the outpatient setting, they have not been successful. He presents today with failure to thrive and progressive weakness. Medical history significant for BPH, HFpEF, TAVR, cognitive impairment. Patient is getting harder for the to get up. She is unable to effectively care for him at home. He is gotten significantly more weak since discharging home from rehab. Therapy evaluated the patient in the ER, would benefit from [facility] care. Patient denies any chest pain, shortness of breath, nausea or vomiting. Case management attempted to assist with initiating placement from the ER. Unsuccessful. Necessitating admission due to patient being unsafe to discharge home. Medicine consulted for further care. Patient underwent hemiarthroplasty of left hip on 07/13/2024 [facility] Disclaimer: The information contained in this section may have been updated after the patient was seen, as this information can be updated by other users. Medical History (Updated 10/06/24 @ 17:28 by Yefri Weinberg MD) Renal failure Pyuria Generalized weakness Hernia Chronic heart failure with preserved ejection fraction (HFpEF) Aortic valve disease Cardiac defibrillator in place Hypertension Surgical History History of biopsy of bladder Aortic valve replaced AICD (automatic cardioverter/defibrillator) present History of appendectomy Amputation finger Family History Mother Coronary artery disease Heart attack Father Dementia Other Family history of hypertension Social History Smoking Status: Never smoker alcohol intake: never substance use type: denies use current occupational status: retired and other Travel in the last 8 weeks: None Have you lived/traveled outside [place] in past 30 days?: No Contact w/someone who lives/traveled outside US past 30 days?: No Exposure to someone with infectious disease in past 14 days?: No Do you have a fever (greater than 100.4 F or 38 C)?: No Have you tested positive for COVID-19: No Exposed to someone with COVID-19 in past 14 days?: No Do you have a sore throat?: No Do you have a cough?: No Do you have any weakness?: Yes Do you have any diarrhea?: No Are you experiencing any unusual bleeding?: No Do you have any muscle aches/pain?: No Do you have any abdominal pain?: No Are you experiencing loss of taste or smell?: No Other Medical History Have you received the Flu Vaccine for this season: No Have you received the Pneumonia Vaccine: Yes Review of Systems Review of Systems Review of systems (narrative): 14 point review of systems performed, pertinent positives and negatives as per HPI Meds Home Medications and Allergies Home Medications ?Medication ?Instructions ?Recorded ?Confirmed ?Type famotidine 20 mg tablet (Pepcid) 20 mg PO DAILY 06/24/23 10/06/24 History loratadine 10 mg tablet (Claritin) 10 mg PO DAILY 06/24/23 10/06/24 History metoprolol succinate 50 mg 100 mg PO DAILY 06/24/23 10/06/24 History tablet,extended release 24 hr spironolactone 25 mg tablet 12.5 mg PO DAILY 06/24/23 10/06/24 History donepezil 5 mg tablet 5 mg PO HS 05/09/24 10/06/24 History memantine 5 mg tablet 5 mg PO HS 05/09/24 10/06/24 History sertraline 25 mg tablet (Zoloft) 25 mg PO DAILY 05/09/24 10/06/24 History oxybutynin chloride 10 mg 10 mg PO DAILY #90 tabs 07/04/24 10/06/24 Rx tablet,extended release 24 hr aspirin 81 mg chewable tablet 81 mg PO DAILY 10/06/24 10/06/24 History furosemide 20 mg tablet (Lasix) 20 mg PO DAILY 10/06/24 10/06/24 History polyethylene glycol 3350 17 gram 17 g PO DAILY PRN Constipation 10/06/24 10/06/24 History oral powder packet (HealthyLax) risperidone 0.5 mg tablet 1 mg PO DAILY 10/06/24 10/06/24 History risperidone 2 mg tablet 2 mg PO HS 10/06/24 10/06/24 History New Prescriptions to Start Prescriptions: Allergies Allergy/AdvReac Type Severity Reaction Status Date / Time ibuprofen Allergy Hives Verified 09/13/24 09:19 Sulfa (Sulfonamide Allergy Hives Verified 09/13/24 09:19 Antibiotics) Exam Data for Last 24 hours Vital signs and Labs for Last 24 Hours: Temp Pulse Resp BP Pulse Ox O2 Del Method 97.9 F 61 16 127/62 99 Room Air 10/06/24 13:30 10/06/24 14:00 10/06/24 13:30 10/06/24 14:00 10/06/24 14:00 10/06/24 14:00 Laboratory Results - last 24 hr 10/06/24 12:15: WBC 9.7, RBC 3.19 L, Hgb 10.1 L, Hct 31.5 L, MCV 98.7 H, MCH 31.7 H, MCHC 32.1, RDW 13.1, Plt Count 227, MPV 9.2, Neut % (Auto) 68.0, Lymph % (Auto) 12.0, [place] % (Auto) 14.7 H, Eos % (Auto) 3.0, Baso % (Auto) 1.7, Neut # (Auto) 6.6, Lymph # (Auto) 1.2, [place] # (Auto) 1.4 H, Eos # (Auto) 0.3, Baso # (Auto) 0.2, Sodium 138, Potassium 4.3, Chloride 103, Carbon Dioxide 28, Anion Gap 11.3, BUN 30 H, Creatinine 1.10, Estimated Creat Clear 42, Estimated GFR 63, Est GFR ( Amer) 76, Glucose 129 H, Calcium 9.0, Magnesium 1.9, Total Bilirubin 0.2, AST 29, ALT 19, Alkaline Phosphatase 66, Total Creatine Kinase 34 L, Total Protein 6.2 L, Albumin 3.1 L, Globulin 3.1, Albumin/Globulin Ratio 1.0 L I & O for Last 24 hours: Intake & Output 10/03/24 10/04/24 10/05/24 10/06/24 23:59 23:59 23:59 23:59 Weight 63.503 kg Constitutional Constitutional: no acute distress, thin, chronically ill appearing and cooperative *Routine HEENT Exam Head: Present normocephalic Eye: Present EOMI and PERRL ENT: Present mucous membranes moist *Routine Neck Exam Neck: Present supple; Absent lymphadenopathy *Routine Respiratory Exam Respiratory: Present CTA bilaterally; Absent rhonchi, wheezes or crackles *Routine Cardiovascular Exam Cardiovascular: Present RRR *Routine Abdominal Exam Abdominal: Present soft and normoactive bowel sounds; Absent tenderness *Routine Rectal Exam Rectal:: deferred *Routine Genitalia Exam Genitalia:: deferred *Routine Extremities Exam Extremities: Absent cyanosis Comments: left hip with no significant tenderness, incision CDI *Routine Skin Exam Skin: Present warm; Absent rash *Routine Neurological Exam Neurological: Present alert and moving all extremities; Absent altered mental status Comments: Oriented to self and place, week. answers for him. Assessment and Plan *Assessment and plan (1) Adult failure to thrive: Status: Acute Category: Medical Code(s): R62.7 - Adult failure to thrive (2) Declining functional status: Status: Acute Category: Medical Code(s): R53.81 - Other malaise (3) Dementia: Status: Acute Category: Medical Code(s): F03.90 - Unspecified dementia, unspecified severity, without behavioral disturbance, psychotic disturbance, mood disturbance, and anxiety (4) Multiple fractures of ribs of right side: Status: Acute Category: Medical Code(s): S22.41XA - Multiple fractures of ribs, right side, initial encounter for closed fracture (5) BPH loc w urin obs/LUTS: Status: Acute Category: Medical Code(s): N40.1 - Benign prostatic hyperplasia with lower urinary tract symptoms (6) S/P TAVR (transcatheter aortic valve replacement): Status: Acute Category: Surgical Code(s): Z95.2 - Presence of prosthetic heart valve (7) Dementia: Status: Acute Qualifiers: Dementia severity: moderate Dementia type: unspecified type Category: Medical Code(s): F03.90 - Unspecified dementia, unspecified severity, without behavioral disturbance, psychotic disturbance, mood disturbance, and anxiety (8) Chronic heart failure with preserved ejection fraction (HFpEF): Status: Chronic Category: Medical Code(s): I50.32 - Chronic diastolic (congestive) heart failure Plan Mr. Floyd is an 89-year-old male with history of mild cognitive impairment who has had worsening failure to thrive, weakness, and inability to care for him at home. Was recently admitted in June for hip fracture. Went to rehab but has had progressive decline since getting home. Therapy evaluated, patient necessitating placement. Not safe to discharge home. Discussed case with ER physician, request admission for further management and observation. I agreed to admit for further care. Problems addressed as follows: Chronic HFpEF Hypertension Failure to thrive - given patient's soft blood pressure and well-controlled heart rate, will decrease metoprolol to 50 mg daily. Hold spironolactone and Lasix. -Continue aspirin 81 mg daily -BUN at baseline of 30, creatinine 1.1, potassium 4.3 and magnesium 1.9. Repeat CBC, CMP, magnesium ordered for the morning. -PT and OT consulted, will continue to work with patient during admission. Case management assisting with placement Dementia: continue donepezil 5 mg nightly, memantine 500 mg nightly Mood disorder: Continue Zoloft 25 mg daily, Risperdal 2 mg nightly and 1 mg daily. Overactive bladder: Continue oxybutynin 5 mg twice daily GERD: Continue famotidine 20 mg daily Full code Holding anticoagulation due to falls Cardiac diet
--- NOTE | 2024-10-06 14:36 | PC.NURSE ---
Dr. Weinberg at BS for sil[facility]
[2024-10-06 17:29] LABS: Microscopic, Urine URINE MICROSCOPIC (MICROSCOPIC)
[2024-10-06 17:36] LABS: Appearance,Urine CLEAR (Clear); Bilirubin,Urine Negative (Negative); Blood, Urine Negative (Negative); Color,Urine YELLOW (Yellow); Glucose,Urine (UA) Negative (Negative); Ketones,Urine Negative (Negative); Leukocyte Esterase,Urine TRACE (Negative); Nitrate,Urine Negative (Negative); Protein,Urine Negative (Negative); Urobilinogen,Urine 0.2 EU/dl (0.2)
[2024-10-06 18:47] LABS: Bacteria,Urine Trace /lpf; Squamous Epithelial Cell,Urine Occasional #/hpf (0-5)
[2024-10-06 18:48] LABS: Yeast,Urine 1+ /lpf
[2024-10-06] MEDS: RISPERIDONE 2 MG 2 EACH PO (21:29)
[2024-10-06] MEDS: OXYBUTYNIN 5MG TAB 5 MG PO (21:29)
[2024-10-06] MEDS: DONEPEZIL 5MG TAB 5 MG PO (21:29)
[2024-10-06] MEDS: PATIENT'S OWN HOME MEDICATION (Memantine 5 mg tablet) 5 EACH PO (21:31)
--- NOTE | 2024-10-06 21:39 | PC.NURSE ---
At this time, the patient was complaining of a sore nose and congestion. He requested to have some Tylenol for relief. Moraima ALY was paged to obtain a new order for Tylenol.
[2024-10-06] MEDS: ACETAMINOPHEN 500MG TAB 500 MG PO (22:10)
--- NOTE | 2024-10-07 02:47 | PC.NURSE ---
Patient's linens and clothes were changed due to soiling at this time. The foam flower pad dressing on the patient's bottom was also changed by me. Redness is present on the patient's coccyx; no open areas noted at this time.
--- NOTE | 2024-10-07 03:56 | PC.NURSE ---
Patient is alert and oriented, however, intermittent periods of confusion was noticed throughout the night. At times, the patient was also heard having conversations with himself in the room. Patient was observed to have wakeful periods and resting periods (eyes closed, respirations even and unlabored on room air) with no apparent distress overall. He is easily reoriented and redirected. Vital signs have been stable this shift. Patient complained of a congested nose once this shift; he was given Tylenol per NOV for relief. Scheduled medications were administered per NOV as well. Patient is utilizing a brief; a urinal remains at the bedside, and the patient requires assistance with its use. A sunken epigastric area and a left inguinal hernia was observed. Patient also has redness on his coccyx; dressing was changed once this shift (see prior note). Auscultation of his heart and bowels were within normal findings; lung sounds were clear but diminished. Turning/repositioning was performed with assistance by staff. At this time, the patient is resting in bed without any further complaints. No acute changes noted thus far. Bed alarm on. Call light within reach.
[2024-10-07 04:00] VITALS: BMI 21.9
[2024-10-07 05:09] VITALS: BP 120/72; PULSE 73; RESP 18; TEMP 36.6; O2SAT 97
[2024-10-07 06:33] LABS: Basophils # 0.1 K/mm3 (0-0.2); Basophils % 1.4 % (0.1-2.0); Eosinophils # 0.3 K/mm3 (0.0-0.4); Eosinophils % 3.3 % (0.1-12.0); Hematocrit 30.7 % (42.0-52.0); Hemoglobin 9.9 g/dL (14.1-18.0); Lymphocytes # 1.4 K/mm3 (0.7-4.5); Lymphocytes % 15.8 % (10-50); Mean Corpuscular HGB Conc 32.2 g/dL (31.8-35.4); Mean Corpuscular Hemoglobin 31.1 pg (27.0-31.2); Mean Corpuscular Volume 96.5 fl (80-94); Monocytes # 1.4 K/mm3 (0.1-1.0); Monocytes % 15.6 % (1.7-9.3); Neutrophils # 5.7 K/mm3 (1.8-7.8); Platelet Count 238 K/mm3 (142-424); Red Blood Count 3.18 M/mm3 (4.60-6.20); Red Cell Distribution Width 12.9 % (11.5-17.5); White Blood Count 9.1 K/mm3 (4.8-10.8)
[2024-10-07 06:45] LABS: Alanine Aminotransferase 15 U/L (12-78); Albumin Level 2.8 g/dl (3.5-5.0); Alkaline Phosphatase 64 U/L (38-126); Anion Gap 8.1 mEq/L (5-15); Aspartate Amino Transferase 24 U/L (17-59); Blood Urea Nitrogen 27 mg/dl (9-20); Calcium 8.6 mg/dl (8.4-10.2); Carbon Dioxide 29 mmol/L (22.0-30.0); Chloride 103 mmol/L (98-107); Creatinine Clearance Estimated 42 mL/min (50-200); Estimated Glomerular Filt Rate 63 ml/min (>60); GFR (African American) 76 ML/MIN (>60); Globulin 2.9 g/dL (1.3-3.2); Glucose 78 mg/dl (74-100); Magnesium 1.8 mg/dl (1.6-2.3); Potassium 4.1 mmoL/L (3.5-5.1); Sodium 136 mmol/L (136-145); Total Protein,Serum 5.7 g/dl (6.3-8.2)
[2024-10-07 06:47] LABS: Bilirubin,Total < 0.1 mg/dl (0.2-1.3)
[2024-10-07 08:00] VITALS: BP 106/53; PULSE 63; RESP 16; TEMP 36.6; O2SAT 96
--- NOTE | 2024-10-07 08:20 | HMH.PHAINT1 ---
Pharmacy Intervention Comments: HOME MEDICATION LIST VERIFIED USING LIST FROM OUTPATIENT PHARMACY AND PT INTERVIEW WITH FAMILY PRESENT
[2024-10-07] MEDS: FAMOTIDINE 20MG TABLET 20 MG PO (08:56)
[2024-10-07] MEDS: ASPIRIN 81MG CHEWABLE TABLET 81 MG PO (08:56)
[2024-10-07] MEDS: OXYBUTYNIN 5MG TAB 5 MG PO (08:56)
[2024-10-07] MEDS: LORATADINE 10MG TABLET 10 MG PO (08:56)
[2024-10-07] MEDS: METOPROLOL SUCCINATE XL 50MG TABLET 50 MG PO (08:56)
[2024-10-07] MEDS: SERTRALINE 50MG TABLET 25 MG PO (08:57)
[2024-10-07] MEDS: risperiDONE 0.5 MG TABLET 1 MG PO (09:08)
--- NOTE | 2024-10-07 10:02 | EXP.DC.SUM ---
General Admission date:: 10/06/24 Discharge date: 10/07/24 HPI HPI HPI: Mr. Floyd is an 89-year-old male with history of hip fracture the end of June, status post hemiarthroplasty. Treated at [facility] for rehab, did well and eventually went home. Has had progressive decline since. Previous attempts made to place patient from the outpatient setting, they have not been successful. He presents today with failure to thrive and progressive weakness. Medical history significant for BPH, HFpEF, TAVR, cognitive impairment. Patient is getting harder for the to get up. She is unable to effectively care for him at home. He is gotten significantly more weak since discharging home from rehab. Therapy evaluated the patient in the ER, would benefit from nursing home care. Patient denies any chest pain, shortness of breath, nausea or vomiting. Case management attempted to assist with initiating placement from the ER. Unsuccessful. Necessitating admission due to patient being unsafe to discharge home. Medicine consulted for further care. Patient underwent hemiarthroplasty of left hip on 07/13/2024 Hospital Course Hospital Course Hospital Course: Mr. Floyd is an 89-year-old male with history of mild cognitive impairment who has had worsening failure to thrive, weakness, and inability to care for him at home. Was recently admitted in June for hip fracture. Went to rehab but has had progressive decline since getting home. Therapy evaluated, patient necessitating placement. Not safe to discharge home. Discussed case with ER physician, request admission for further management and observation. I agreed to admit for further care. Patient remained stable overnight. Excepted to rehab due to generalized weakness and failure to thrive. Problems addressed as follows: Chronic HFpEF Hypertension Failure to thrive - given patient's soft blood pressure and well-controlled heart rate, decreased his metoprolol to 50 mg daily. Holding his diuretics at this time. Recommend continuing aspirin 81 mg daily. Labs remained normal with stable kidney function and electrolytes. Therapy evaluated, recommend skilled placement for rehab. Graciously excepted by [facility]. Stable to discharge. Dementia: continue donepezil 5 mg nightly, memantine 500 mg nightly Mood disorder: Continue Zoloft 25 mg daily, Risperdal 2 mg nightly and 1 mg daily. Overactive bladder: Continue oxybutynin 5 mg twice daily GERD: Continue famotidine 20 mg daily Exam Data for Last 24 hours Vital signs and Labs for Last 24 Hours: Temp Pulse Resp BP Pulse Ox O2 Del Method 97.8 F 63 16 106/53 L 96 Room Air 10/07/24 08:00 10/07/24 08:00 10/07/24 08:00 10/07/24 08:00 10/07/24 08:00 10/07/24 08:00 Laboratory Results - last 24 hr 10/06/24 12:15: WBC 9.7, RBC 3.19 L, Hgb 10.1 L, Hct 31.5 L, MCV 98.7 H, MCH 31.7 H, MCHC 32.1, RDW 13.1, Plt Count 227, MPV 9.2, Neut % (Auto) 68.0, Lymph % (Auto) 12.0, Phillips % (Auto) 14.7 H, Eos % (Auto) 3.0, Baso % (Auto) 1.7, Neut # (Auto) 6.6, Lymph # (Auto) 1.2, Phillips # (Auto) 1.4 H, Eos # (Auto) 0.3, Baso # (Auto) 0.2, Sodium 138, Potassium 4.3, Chloride 103, Carbon Dioxide 28, Anion Gap 11.3, BUN 30 H, Creatinine 1.10, Estimated Creat Clear 42, Estimated GFR 63, Est GFR ( Amer) 76, Glucose 129 H, Calcium 9.0, Magnesium 1.9, Total Bilirubin 0.2, AST 29, ALT 19, Alkaline Phosphatase 66, Total Creatine Kinase 34 L, Total Protein 6.2 L, Albumin 3.1 L, Globulin 3.1, Albumin/Globulin Ratio 1.0 L, Procalcitonin 0.073 10/06/24 16:15: Urine Color Yellow, Urine Appearance Clear, Urine pH 6.0, Ur Specific Madison 1.020, Urine Protein Negative, Urine Glucose (UA) Negative, Urine Ketones Negative, Urine Blood Negative, Urine Nitrate Negative, Urine Bilirubin Negative, Urine Urobilinogen 0.2, Ur Leukocyte Esterase Trace, Urine RBC None, Urine WBC 5-10, Ur Squamous Epith Cells Occasional, Urine Bacteria Trace, Urine Yeast 1+ 10/07/24 06:06: WBC 9.1, RBC 3.18 L, Hgb 9.9 L, Hct 30.7 L, MCV 96.5 H, MCH 31.1, MCHC 32.2, RDW 12.9, Plt Count 238, MPV 9.0, Neut % (Auto) 63.0, Lymph % (Auto) 15.8, Phillips % (Auto) 15.6 H, Eos % (Auto) 3.3, Baso % (Auto) 1.4, Neut # (Auto) 5.7, Lymph # (Auto) 1.4, Phillips # (Auto) 1.4 H, Eos # (Auto) 0.3, Baso # (Auto) 0.1, Sodium 136, Potassium 4.1, Chloride 103, Carbon Dioxide 29, Anion Gap 8.1, BUN 27 H, Creatinine 1.10, Estimated Creat Clear 42, Estimated GFR 63, Est GFR ( Amer) 76, Glucose 78 D, Calcium 8.6, Magnesium 1.8, Total Bilirubin < 0.1 L, AST 24, ALT 15, Alkaline Phosphatase 64, Total Protein 5.7 L, Albumin 2.8 L, Globulin 2.9, Albumin/Globulin Ratio 1.0 L I & O for Last 24 hours: Intake & Output 10/04/24 10/05/24 10/06/24 10/07/24 23:59 23:59 23:59 23:59 Intake Total 270 / 430 460 / 460 Output Total 770 / 770 225 / 225 Balance -500 / -340 235 / 235 Weight 62.596 kg 63.548 kg Constitutional Constitutional: no acute distress, thin and cooperative *Routine HEENT Exam Head: Present normocephalic Eye: Present EOMI and PERRL ENT: Present mucous membranes moist *Routine Neck Exam Neck: Present supple; Absent lymphadenopathy Routine Chest/Breast/Axilla Exam Chest wall: Absent tenderness *Routine Respiratory Exam Respiratory: Present CTA bilaterally; Absent respiratory distress, rhonchi, wheezes or crackles *Routine Cardiovascular Exam Cardiovascular: Present RRR *Routine Abdominal Exam Abdominal: Present soft and normoactive bowel sounds; Absent tenderness *Routine Rectal Exam Patient deferred: visual exam *Routine Exam Patient deferred: penile exam *Routine Extremities Exam Extremities: Absent cyanosis, clubbing or edema Comments: Legs equal length, incision from previous left hip replacement clean dry and intact *Routine Skin Exam Skin: Present intact and warm; Absent rash *Routine Neurological Exam Neurological: Present alert and moving all extremities; Absent altered mental status Comments: Oriented to self. Mild confusion. Answers questions about history but has poor recall of recent events Detailed Lower Extremity Exam Comments: L hip: Dressing C/D/I. Thigh and calves Soft, calves nontender. SCDs in place on R calf. SILT 1st DWS/PA. +EHL/FHL/GS/TA. +2 DP. Results Data Completed and Pending Labs on day of discharge: Labs from last 24 hours 10/07/24 10/06/24 10/06/24 06:06 16:15 12:15 WBC 9.1 9.7 RBC 3.18 L 3.19 L Hgb 9.9 L 10.1 L Hct 30.7 L 31.5 L MCV 96.5 H 98.7 H MCH 31.1 31.7 H MCHC 32.2 32.1 RDW 12.9 13.1 Plt Count 238 227 MPV 9.0 9.2 Neut % (Auto) 63.0 68.0 Lymph % (Auto) 15.8 12.0 Phillips % (Auto) 15.6 H 14.7 H Eos % (Auto) 3.3 3.0 Baso % (Auto) 1.4 1.7 Neut # (Auto) 5.7 6.6 Lymph # (Auto) 1.4 1.2 Phillips # (Auto) 1.4 H 1.4 H Eos # (Auto) 0.3 0.3 Baso # (Auto) 0.1 0.2 Sodium 136 138 Potassium 4.1 4.3 Chloride 103 103 Carbon Dioxide 29 28 Anion Gap 8.1 11.3 BUN 27 H 30 H Creatinine 1.10 1.10 Estimated Creat Clear 42 42 Estimated GFR 63 63 Est GFR ( Amer) 76 76 Glucose 78 D 129 H Calcium 8.6 9.0 Magnesium 1.8 1.9 Total Bilirubin < 0.1 L 0.2 AST 24 29 ALT 15 19 Alkaline Phosphatase 64 66 Total Creatine Kinase 34 L Total Protein 5.7 L 6.2 L Albumin 2.8 L 3.1 L Globulin 2.9 3.1 Albumin/Globulin Ratio 1.0 L 1.0 L Procalcitonin 0.073 Urine Color Yellow Urine Appearance Clear Urine pH 6.0 Ur Specific [place] 1.020 Urine Protein Negative Urine Glucose (UA) Negative Urine Ketones Negative Urine Blood Negative Urine Nitrate Negative Urine Bilirubin Negative Urine Urobilinogen 0.2 Ur Leukocyte Esterase Trace Urine RBC None Urine WBC 5-10 Ur Squamous Epith Cells Occasional Urine Bacteria Trace Urine Yeast 1+ DS: Diagnosis Discharge Diagnosis (1) Adult failure to thrive: Status: Acute Code(s): R62.7 - Adult failure to thrive (2) Declining functional status: Status: Acute Code(s): R53.81 - Other malaise (3) Dementia: Status: Acute Code(s): F03.90 - Unspecified dementia, unspecified severity, without behavioral disturbance, psychotic disturbance, mood disturbance, and anxiety (4) Multiple fractures of ribs of right side: Status: Acute Code(s): S22.41XA - Multiple fractures of ribs, right side, initial encounter for closed fracture (5) BPH loc w urin obs/LUTS: Status: Acute Code(s): N40.1 - Benign prostatic hyperplasia with lower urinary tract symptoms (6) S/P TAVR (transcatheter aortic valve replacement): Status: Acute Code(s): Z95.2 - Presence of prosthetic heart valve (7) Chronic heart failure with preserved ejection fraction (HFpEF): Status: Chronic Code(s): I50.32 - Chronic diastolic (congestive) heart failure Meds Home Medications and Allergies Home Medications ?Medication ?Instructions ?Recorded ?Confirmed ?Type aspirin 81 mg chewable tablet 81 mg PO DAILY 30 days #30 tabs 10/07/24 Rx donepezil 5 mg tablet 5 mg PO HS 30 days #30 tabs 10/07/24 Rx famotidine 20 mg tablet (Pepcid) 20 mg PO DAILY 30 days #30 tabs 10/07/24 Rx furosemide 20 mg tablet (Lasix) 20 mg PO DAILYP PRN Edema 30 days 10/07/24 Rx #30 tabs loratadine 10 mg tablet (Claritin) 10 mg PO DAILY 30 days #30 tabs 10/07/24 Rx memantine 5 mg tablet 5 mg PO HS 30 days #30 tabs 10/07/24 Rx metoprolol succinate 50 mg 50 mg PO DAILY 30 days #30 tabs 10/07/24 Rx tablet,extended release 24 hr (Toprol XL) oxybutynin chloride 10 mg 10 mg PO DAILY 30 days #30 tabs 01/24/25 Rx tablet,extended release 24 hr polyethylene glycol 3350 17 gram 17 g PO DAILY PRN Constipation 30 10/07/24 Rx oral powder packet (HealthyLax) days #30 ea risperidone 1 mg tablet 1 mg PO BID 30 days #60 tabs 10/07/24 Rx risperidone 2 mg tablet 2 mg PO HS 30 days #30 tabs 10/07/24 Rx sertraline 25 mg tablet (Zoloft) 25 mg PO HS 30 days #30 tabs 10/07/24 Rx spironolactone 25 mg tablet 12.5 mg (1/2 x 25 mg) PO DAILY 30 10/07/24 Rx days #15 tabs New Prescriptions to Start Prescriptions: aspirin Lenard,Yefri donepezil Lenard,Yefri famotidine [Pepcid] Lenard,Yefri furosemide [Lasix] Lenard,Yerfi loratadine [Claritin] Lenard,Yefri memantine Lenard,Yefri oxybutynin chloride Lenard,Yefri polyethylene glycol 3350 [HealthyLax] Lenard,Yefri risperidone Lenard,Yefri risperidone Lenard,Yefri sertraline [Zoloft] Lenard,Yefri spironolactone Lenard,Yefri Allergies Allergy/AdvReac Type Severity Reaction Status Date / Time ibuprofen Allergy Hives Verified 09/13/24 09:19 Sulfa (Sulfonamide Allergy Hives Verified 09/13/24 09:19 Antibiotics) Discharge Plan Disposition Patient Disposition: [facility] Condition: Fair Discharge Order Discharge Orders: Discharge Order (Routine); Ordered 10/07/24 Ordered By: Yefri Weinberg Follow up Plan Prescriptions/Medication Reconciliation: New metoprolol succinate [Toprol XL] 50 mg Tablet Extended Release 24 Hr 50 mg PO DAILY 30 Days Qty: 30 0RF Continued donepezil 5 mg tablet 5 mg PO HS 30 Days Qty: 30 0RF oxybutynin chloride 10 mg tablet extended release 24hr 10 mg PO DAILY 30 Days Qty: 30 3RF spironolactone 25 mg tablet 12.5 mg PO DAILY 30 Days Qty: 15 0RF risperidone 2 mg Tablet 2 mg PO HS 30 Days Qty: 30 0RF famotidine [Pepcid] 20 mg Tablet 20 mg PO DAILY 30 Days Qty: 30 0RF sertraline [Zoloft] 25 mg tablet 25 mg PO HS 30 Days Qty: 30 0RF aspirin 81 mg Tablet,Chewable 81 mg PO DAILY 30 Days Qty: 30 0RF furosemide [Lasix] 20 mg Tablet 20 mg PO DAILYP PRN (Reason: Edema) 30 Days Qty: 30 0RF risperidone 1 mg tablet 1 mg PO BID 30 Days Qty: 60 0RF loratadine [Claritin] 10 mg Tablet 10 mg PO DAILY 30 Days Qty: 30 0RF memantine 5 mg tablet 5 mg PO HS 30 Days Qty: 30 0RF Changed polyethylene glycol 3350 [HealthyLax] 17 gram powder in packet 17 g PO DAILY PRN (Reason: Constipation) 30 Days Qty: 30 0RF Discontinued metoprolol succinate 50 mg tablet extended release 24 hr 75 mg PO DAILY Problem Reconciliation Problems Reviewed?: Yes Patient Discharge Instructions ACTIVITY: Continue current activity DIET: continue same diet Print Language: Mosotho Providers Primary Care Provider: Fatou Armenta Admit Provider: Yefri Weinberg Attending Provider: Yefri Weinberg
== END 2024-10-07 18:05 ==
LOC: ER 14:03 → 2ND 14:11
PROVIDERS: Physician Assistant; Admitting Provider Internal Medicine Adolescent Medicine; Emergency Provider Emergency Medicine; PCP Nurse Practitioner Family; Visit Provider Internal Medicine Adolescent Medicine
DX: R62.7 Adult failure to thrive (principal); F03.90 Unspecified dementia, unspecified severity, without behavioral disturbance, psychotic disturbance, mood disturbance, and anxiety; I50.32 Chronic diastolic (congestive) heart failure; N40.0 Benign prostatic hyperplasia without lower urinary tract symptoms; N32.0 Bladder-neck obstruction; K21.9 Gastro-esophageal reflux disease without esophagitis; F03.B0 Unspecified dementia, moderate, without behavioral disturbance, psychotic disturbance, mood disturbance, and anxiety; S72.002S Fracture of unspecified part of neck of left femur, sequela; I35.9 Nonrheumatic aortic valve disorder, unspecified; I95.9 Hypotension, unspecified; S22.41XS Multiple fractures of ribs, right side, sequela; I11.0 Hypertensive heart disease with heart failure; Z68.22 Body mass index [BMI] 22.0-22.9, adult; Z91.81 History of falling; Z79.82 Long term (current) use of aspirin; Z95.2 Presence of prosthetic heart valve; Z95.810 Presence of automatic (implantable) cardiac defibrillator; Z79.899 Other long term (current) drug therapy; Z74.1 Need for assistance with personal care
CPT/HCPCS: 36415; 80053; 81001; 82550; 83735; 84145; 85025; 87040; 93005; 97530; 99285; G0378; J7120

== ENCOUNTER 2024-10-26 11:37 | Inpatient (IN) | payer MEDICARE, OTHER, SELFPAY ==
[2024-10-26] VITALS (12 sets, daily range): BP systolic 77–108; BP diastolic 36–82; PULSE 90–128; RESP 9–24; TEMP 36.2–38.1; O2SAT 94–98; BMI 21.4; BMI 19.6
--- NOTE | 2024-10-26 | ECG_ITS ---
APPROVED REPORT Exam: Resting ECG HR:123 bpm ECG Measurements Heart Rate 123 AXES MT 160 P 54 QRSd 142 QRS 107 QT 340 T 36 QTc 413 Conclusion SINUS TACHYCARDIA RIGHT AXIS DEVIATION [QRS AXIS > 100] RIGHT BUNDLE BRANCH BLOCK [120+ ms QRS DURATION, UPRIGHT V1, 40+ ms S IN I/aVL/V4/V5/V6] Electronically signed by : DAIJA BECK, 10/26/2024 15:57:37
--- NOTE | 2024-10-26 11:40 | CT_ITS ---
FINAL REPORT TECHNIQUE: Thin section axial images were obtained from skull base to vertex without contrast. Coronal and sagittal reconstruction images were obtained from the axial data. Exam was performed using dose reduction techniques such as automated exposure control, adjustment of the mA and kV according to patient size, and use of iterative reconstruction technique. CLINICAL HISTORY: lethargy, unresponsive COMPARISON: None FINDINGS: There is atrophy. No mass effect or midline shift. No intracranial hemorrhage. No hydrocephalus. Periventricular low density is likely related to changes of chronic small vessel ischemia. The basilar cisterns are preserved. The posterior fossa is without acute abnormality. The soft tissues are without acute abnormality. No acute osseous abnormality is identified. IMPRESSION: No acute intracranial abnormality. Atrophy and changes suggesting chronic small vessel ischemia. Reviewed, Interpreted and Dictated by Agnieszka Cobb MD Transcribed by Shiloh Calvin Authenticated and [facility]
--- NOTE | 2024-10-26 11:40 | XR_ITS ---
FINAL REPORT CLINICAL HISTORY: altered mental status COMPARISON: 09/15/2024 FINDINGS: A portable view of the chest was obtained. An AICD is once again noted. Cardiac and mediastinal silhouettes are within normal limits. There are chronic bilateral interstitial opacities, stable since the prior exam. No new infiltrates are identified. There is no pleural effusion or pneumothorax. IMPRESSION: Chronic appearing changes without new infiltrate or effusion. Reviewed, Interpreted and Dictated by Agnieszka Cobb MD Transcribed by Shiloh Calvin Authenticated and . [facility]
[2024-10-26 11:59] LABS: Basophils # 0.1 K/mm3 (0-0.2); Basophils % 0.3 % (0.1-2.0); Eosinophils % 0.1 % (0.1-12.0); Hematocrit 41.7 % (42.0-52.0); Hemoglobin 13.2 g/dL (14.1-18.0); Lymphocytes # 0.5 K/mm3 (0.7-4.5); Lymphocytes % 2.8 % (10-50); Mean Corpuscular HGB Conc 31.7 g/dL (31.8-35.4); Mean Corpuscular Hemoglobin 30.7 pg (27.0-31.2); Mean Platelet Volume 9.5 fl (7.4-10.4); Monocytes # 2.4 K/mm3 (0.1-1.0); Monocytes % 12.6 % (1.7-9.3); Neutrophils # 15.9 K/mm3 (1.8-7.8); Neutrophils % 83.5 % (37.0-80.0); Platelet Count 292 K/mm3 (142-424); Red Cell Distribution Width 13.2 % (11.5-17.5)
[2024-10-26 12:01] LABS: Lactate Venous 2.4 mmol/L (0.4-2.0); VBG Base Excess -2.5 mmol/L (-2.4-2.3); VBG HCO3 21.8 mmol/L (23-30); VBG Oxygen Saturation 91.5 % (50-70); VBG PCO2 33.9 mmol/L (35-51); VBG PH 7.43 mmol/L (7.31-7.41); VBG Total CO2 22.9 mmol/L (23-27)
[2024-10-26 12:02] LABS: MANUAL DIFFERENTIAL MANUAL DIFFERENTIAL (MANUAL DIFF)
[2024-10-26] MEDS: RINGERS SOLUTION,LACTATED 500 ML 999 ML IV (12:05)
[2024-10-26 12:07] LABS: Albumin Level 3.9 g/dl (3.5-5.0); Chloride 104 mmol/L (98-107); Sodium 143 mmol/L (136-145)
[2024-10-26] MEDS: ACETAMINOPHEN 1,000MG/100ML VIAL 1000 MG IV (12:08)
[2024-10-26 12:10] LABS: Alanine Aminotransferase 17 U/L (12-78); Alkaline Phosphatase 115 U/L (38-126); Aspartate Amino Transferase 31 U/L (17-59); Bilirubin,Total 0.6 mg/dl (0.2-1.3); Blood Urea Nitrogen 34 mg/dl (9-20); Calcium 9.4 mg/dl (8.4-10.2); Carbon Dioxide 27 mmol/L (22.0-30.0); Creatinine Clearance Estimated 37 mL/min (50-200); Estimated Glomerular Filt Rate 57 ml/min (>60); GFR (African American) 69 ML/MIN (>60); Globulin 3.8 g/dL (1.3-3.2); Glucose 143 mg/dl (74-100); Total Protein,Serum 7.7 g/dl (6.3-8.2)
[2024-10-26 12:11] LABS: Magnesium 2.1 mg/dl (1.6-2.3)
[2024-10-26 12:12] LABS: Activated Partial Thrombo Time 26.5 seconds (22.8-30.6); INR 1.09 (0.9-1.1); Prothrombin Time 12.1 seconds (10.1-12.5)
[2024-10-26 12:20] LABS: NT Pro Brain Natriuretic Pep. 822 pg/mL (0-450)
[2024-10-26 12:23] LABS: Eosinophils % 1 % (0-3); Lymphocytes % 8 % (10-50); Monocytes % 9 % (2-9); Neutrophils % 80 % (42-76); Platelet Estimate Normal; Total Cells Counted 100; Troponin I 0.02 ng/ml (0.00-0.034)
[2024-10-26 12:25] LABS: RBC Morphology Normal
--- NOTE | 2024-10-26 12:28 | PC.NURSE ---
Attempted to get Blood cultures was not successful so let the nurse know.
[2024-10-26 12:41] LABS: Thyroid Stimulating Hormone 5.91 uIU/mL (0.465-4.68)
--- NOTE | 2024-10-26 12:47 | CT_ITS ---
FINAL REPORT TECHNIQUE: Thin section axial images are obtained through the abdomen and pelvis after intravenous contrast. Oral contrast was also administered. Reconstruction images were obtained from the axial data. Exam was performed using dose reduction techniques. CLINICAL HISTORY: sepsis, unknown origin, AMS COMPARISON: 04/28/2024 FINDINGS: LIVER: Homogeneous. No focal lesion. GALLBLADDER/BILIARY SYSTEM: Gallbladder is present. Likely small gallstones in the gallbladder. No biliary dilatation. SPLEEN: Unremarkable. PANCREAS: Unremarkable. ADRENALS: Unremarkable. KIDNEYS/URETERS/BLADDER: Stable small bilateral renal cysts. No evidence of mass or hydronephrosis. Unremarkable urinary bladder. GI TRACT: No small bowel obstruction or dilatation. Appendix is not seen but no secondary signs of appendicitis. Large left inguinal hernia containing a portion of proximal sigmoid colon. No evidence of obstruction. Wall thickening of the rectum which is distended with stool. Stercoral colitis not excluded. PELVIC ORGANS: Unremarkable for age. LYMPH NODES/RETROPERITONEUM/MESENTERY: No lymphadenopathy. No abdominal aortic aneurysm. ABDOMINAL WALL: The abdominal wall is intact. FREE FLUID: No ascites. BONES: No acute osseous abnormality. IMPRESSION: Rectal wall thickening with a large amount of stool could represent stercoral colitis. Large left inguinal hernia containing a portion of sigmoid colon. Otherwise, no acute abnormality. Reviewed, Interpreted and Dictated by Agnieszka Cobb MD Transcribed by Gia Rutledge Authenticated and . [facility]
--- NOTE | 2024-10-26 12:47 | CT_ITS ---
FINAL REPORT TECHNIQUE: Axial imaging of the chest is obtained after the administration of contrast. 3-D MIP reformatted images were also obtained and reviewed per PE protocol. CLINICAL HISTORY: sepsis, unknown origin, AMS COMPARISON: 08/06/2024 FINDINGS: The pulmonary arteries are well filled. There is no evidence of pulmonary embolus. There is no aortic dissection. Heart size is normal. There are mildly enlarged right paratracheal lymph nodes at the level of the thoracic inlet which are unchanged from the prior exam. Borderline AP window lymph nodes are noted with mildly enlarged right hilar and subcarinal lymph nodes which may be slightly worse compared to the prior study. Subpleural predominantly interstitial changes more pronounced at the lung bases. On today's exam, there is a new subpleural groundglass opacity in both lower lobes, right greater than left, with airspace disease in the right lower lobe favored to represent edema and/or pneumonia. There is no pleural or pericardial effusion. Compression deformities in several lower thoracic vertebral bodies are unchanged. No acute osseous abnormality. IMPRESSION: No evidence of pulmonary embolism or aortic dissection. New groundglass and airspace opacities right greater than left lower lobes favored to represent edema and/or pneumonia superimposed on underlying fibrosis. Reviewed, Interpreted and Dictated by Agnieszka Cobb MD Transcribed by Gia Rutledge Authenticated and [facility]
[2024-10-26 12:48] LABS: D-Dimer > 8.10 ug/mL (0.0-0.5)
--- NOTE | 2024-10-26 12:55 | HMH.EDGENADL ---
Discharge Plan Disposition Patient Disposition: Admitted Condition: Serious Prescriptions Prescriptions: No Action donepezil 5 mg tablet 5 mg PO HS 30 Days Qty: 30 0RF polyethylene glycol 3350 [HealthyLax] 17 gram powder in packet 17 g PO DAILY PRN (Reason: Constipation) 30 Days Qty: 30 0RF oxybutynin chloride 10 mg tablet extended release 24hr 10 mg PO DAILY 30 Days Qty: 30 3RF spironolactone 25 mg tablet 12.5 mg PO DAILY 30 Days Qty: 15 0RF risperidone 2 mg Tablet 2 mg PO HS 30 Days Qty: 30 0RF famotidine [Pepcid] 20 mg Tablet 20 mg PO DAILY 30 Days Qty: 30 0RF sertraline [Zoloft] 25 mg tablet 25 mg PO HS 30 Days Qty: 30 0RF aspirin 81 mg Tablet,Chewable 81 mg PO DAILY 30 Days Qty: 30 0RF furosemide [Lasix] 20 mg Tablet 20 mg PO DAILYP PRN (Reason: Edema) 30 Days Qty: 30 0RF risperidone 1 mg tablet 1 mg PO BID 30 Days Qty: 60 0RF loratadine [Claritin] 10 mg Tablet 10 mg PO DAILY 30 Days Qty: 30 0RF memantine 5 mg tablet 5 mg PO HS 30 Days Qty: 30 0RF metoprolol succinate [Toprol XL] 50 mg Tablet Extended Release 24 Hr 50 mg PO DAILY 30 Days Qty: 30 0RF Referrals Follow up/Referrals: Fatou Armenta [Primary Care Provider] - See instructions Clinical Impressions Clinical Impression: Sepsis due to pneumonia, Altered mental status, Fecal impaction, Stercoral colitis Print Language Print Language: Comoran Discharge ED Provider: Rosalie Powers General Adult HPI General Chief complaint: Weakness Stated complaint: weakness Time Seen by Provider: 10/26/24 11:40 Mode of Arrival: EMS Source of Information: Patient Limitations: No Limitations Description of Symptoms (Recalled from ER Triage Doc. by RN): EMS reports patient is COVID + with increased lethargy. History of Present Illness HPI narrative: This patient is an 89-year-old male with a history of dementia, CHF with defibrillator in place, prior history of hip fracture, aortic valve disease status post TAVR presenting to the emergency department for evaluation with concern for lethargy and altered mental status. Patient tested positive for COVID-19 8 days ago, and he has become progressively more lethargic. Today, he was essentially unresponsive, prompting ED evaluation. EMS notes that the patient was tachycardic en route but otherwise vital stable. arrived and stated that the patient has had a progressive functional decline since July, but he has been acutely worse since testing positive for COVID. He had recent admission in September for failure to thrive. She states that at his baseline, he has a hard time opening his eyes but will respond to her, though he is confused with his dementia. Today she stated it was unusual because he will not open his eyes or respond at all. She also notes that she has been notified that has been aspirating. Related Data Previous Rx's ?Medication ?Instructions ?Recorded aspirin 81 mg chewable tablet 81 mg PO DAILY 30 days #30 tabs 10/07/24 donepezil 5 mg tablet 5 mg PO HS 30 days #30 tabs 10/07/24 famotidine 20 mg tablet (Pepcid) 20 mg PO DAILY 30 days #30 tabs 10/07/24 furosemide 20 mg tablet (Lasix) 20 mg PO DAILYP PRN Edema 30 days 10/07/24 #30 tabs loratadine 10 mg tablet (Claritin) 10 mg PO DAILY 30 days #30 tabs 10/07/24 memantine 5 mg tablet 5 mg PO HS 30 days #30 tabs 10/07/24 metoprolol succinate 50 mg 50 mg PO DAILY 30 days #30 tabs 10/07/24 tablet,extended release 24 hr (Toprol XL) oxybutynin chloride 10 mg 10 mg PO DAILY 30 days #30 tabs 10/07/24 tablet,extended release 24 hr polyethylene glycol 3350 17 gram 17 g PO DAILY PRN Constipation 30 10/07/24 oral powder packet (HealthyLax) days #30 ea risperidone 1 mg tablet 1 mg PO BID 30 days #60 tabs 10/07/24 risperidone 2 mg tablet 2 mg PO HS 30 days #30 tabs 10/07/24 sertraline 25 mg tablet (Zoloft) 25 mg PO HS 30 days #30 tabs 10/07/24 spironolactone 25 mg tablet 12.5 mg (1/2 x 25 mg) PO DAILY 30 10/07/24 days #15 tabs Allergies Allergy/AdvReac Type Severity Reaction Status Date / Time ibuprofen Allergy Hives Verified 10/26/24 12:21 Sulfa (Sulfonamide Allergy Hives Verified 10/26/24 12:21 Antibiotics) [facility] Disclaimer: The information contained in this section may have been updated after the patient was seen, as this information can be updated by other users. Medical History Closed left hip fracture Renal failure Pyuria Generalized weakness Hernia Chronic heart failure with preserved ejection fraction (HFpEF) Aortic valve disease Cardiac defibrillator in place Hypertension Surgical History History of biopsy of bladder Aortic valve replaced AICD (automatic cardioverter/defibrillator) present History of appendectomy Amputation finger Family History Mother Coronary artery disease Heart attack Father Dementia Other Family history of hypertension Social History Smoking Status: Never smoker alcohol intake: never substance use type: denies use current occupational status: retired and other Travel in the last 8 weeks: None Have you lived/traveled outside [place] in past 30 days?: No Contact w/someone who lives/traveled outside [place] past 30 days?: No Exposure to someone with infectious disease in past 14 days?: No Do you have a fever (greater than 100.4 F or 38 C)?: No Have you tested positive for COVID-19: Yes Exposed to someone with COVID-19 in past 14 days?: Yes Do you have a sore throat?: No Do you have a cough?: No Do you have any weakness?: Yes Do you have any diarrhea?: No Are you experiencing any unusual bleeding?: No Do you have any muscle aches/pain?: No Do you have any abdominal pain?: No Are you experiencing loss of taste or smell?: No Other Medical History Have you received the Flu Vaccine for this season: No Have you received the Pneumonia Vaccine: No ROS Obtained: Yes unobtainable due to mental status Physical Exam General General appearance: obtunded Head Head exam: atraumatic and normocephalic Eye Eye exam: Present normal appearance, PERRL and EOMI ENT ENT exam: Present mucous membranes dry and normal external ear exam Neck Neck exam: Present normal inspection, full ROM and trachea midline; Absent tenderness Chest Chest inspection: Present normal inspection and symmetric chest wall rise; Absent tenderness Respiratory Respiratory exam: Present other (Bibasilar rhonchi heard ); Absent respiratory distress, wheezes or stridor Cardiovascular Cardiovascular exam: Present normal rhythm and tachycardia Abdominal Exam Abdominal exam: Present soft; Absent distention, tenderness, guarding or rebound Extremities Exam Extremities exam: Present normal inspection, full ROM and normal capillary refill; Absent tenderness or edema Back Exam Back exam: Present normal inspection and full ROM; Absent tenderness Neurological Exam Neurological exam: Absent alert Expanded Neurological Exam Coma scale eye opening: None Coma scale motor response: Localizes to pain Coma scale verbal response: Incomprehensible Coma scale total: 8 Skin Skin exam: Present warm and dry Medical Decision Making Medical Records Medical records reviewed: Yes I reviewed the patient's medical records. Screening: Per USPSTF and CDC recommendations, given the prevalence of disease in our region, it is our hospital?s policy to screen for HIV and viral Hepatitis for all patients aged 18 and over and those with ongoing risk factors. Alexx Inquiry Pt receiving controlled substance: No Vital Signs: 10/26/24 11:40 10/26/24 12:13 10/26/24 13:11 Temperature 100.6 F H Temperature Source Axillary Pulse Rate 120 H 116 H Pulse Rate [Radial] 128 H Respiratory Rate 22 23 24 Blood Pressure 96/45 L 87/55 L Blood Pressure [Right Arm] 108/82 L Blood Pressure Mean [Right Arm] 90 Blood Pressure Source [Right Arm] Automatic Cuff Blood Pressure Position [Right Arm] Supine 02 Sat by Pulse Oximetry 95 94 L 95 Oxygen Delivery Method Room Air Nasal Cannula Nasal Cannula 10/26/24 14:00 10/26/24 14:31 10/26/24 15:02 Temperature Temperature Source Pulse Rate 100 H 98 H 93 H Pulse Rate [Radial] Respiratory Rate 19 14 19 Blood Pressure 77/45 L 95/68 L 102/36 L Blood Pressure [Right Arm] Blood Pressure Mean [Right Arm] Blood Pressure Source [Right Arm] Blood Pressure Position [Right Arm] 02 Sat by Pulse Oximetry 98 95 96 Oxygen Delivery Method 10/26/24 15:30 Temperature Temperature Source Pulse Rate 99 H Pulse Rate [Radial] Respiratory Rate 14 Blood Pressure 92/60 L Blood Pressure [Right Arm] Blood Pressure Mean [Right Arm] Blood Pressure Source [Right Arm] Blood Pressure Position [Right Arm] 02 Sat by Pulse Oximetry 97 Oxygen Delivery Method Lab Data Lab results reviewed: Yes I reviewed the patient's lab results. Lab Results 10/26/24 11:40: VBG pH 7.43 H, VBG pCO2 33.9 L, VBG pO2 60.0 H, VBG HCO3 21.8 L, VBG Total CO2 22.9 L, VBG O2 Saturation 91.5 H, VBG Base Excess -2.5 L, VBG Lactic Acid 2.4 H 10/26/24 11:50: WBC 19.0 H, RBC 4.30 L, Hgb 13.2 L, Hct 41.7 L, MCV 97.0 H, MCH 30.7, MCHC 31.7 L, RDW 13.2, Plt Count 292, MPV 9.5, Neut % (Auto) 83.5 H, Lymph % (Auto) 2.8 L, Williamson % (Auto) 12.6 H, Eos % (Auto) 0.1, Baso % (Auto) 0.3, Neut # (Auto) 15.9 H, Lymph # (Auto) 0.5 L, Williamson # (Auto) 2.4 H, Eos # (Auto) 0.0, Baso # (Auto) 0.1, Total Counted 100, Neutrophils % (Manual) 80 H, Band Neutrophils % 2.0, Lymphocytes % (Manual) 8 L, Monocytes % (Manual) 9, Eosinophils % (Manual) 1, Platelet Estimate Normal, RBC Morphology Normal, PT 12.1, INR 1.09, APTT 26.5, D-Dimer > 8.10 H, Sodium 143, Potassium 5.0, Chloride 104, Carbon Dioxide 27, Anion Gap 17.0 H, BUN 34 H, Creatinine 1.20, Estimated Creat Clear 37, Estimated GFR 57 L, Est GFR ( Amer) 69, Glucose 143 H, Calcium 9.4, Magnesium 2.1, Total Bilirubin 0.6, AST 31, ALT 17, Alkaline Phosphatase 115, Troponin I 0.02, NT-Pro-B Natriuret Pep 822 H, Total Protein 7.7 D, Albumin 3.9, Globulin 3.8 H, Albumin/Globulin Ratio 1.0 L, TSH 5.91 H, Thyroxine (T4) 8.0 10/26/24 13:10: Ammonia < 9 L 10/26/24 14:37: Troponin I 0.02 10/26/24 11:50 10/26/24 11:50 Orders (Tests/Meds): ED MEDICATIONS Discontinued Medications Generic Name Dose Route Start Last Admin Trade Name Albertoq PRN Reason Stop Dose Admin Acetaminophen 1,000 mg 10/26/24 11:44 10/26/24 12:08 Acetaminophen 1,000mg/100ml Vial IV 10/26/24 11:45 1,000 mg ONCE ONE Administration Lactated Ringer's 500 mls @ 999 mls/hr 10/26/24 11:42 10/26/24 12:05 Lactated Ringer's 500ml IV 10/26/24 12:12 999 mls/hr .Q31M ONE Administration Piperacillin Sod/Tazobactam 50 mls @ 100 mls/hr 10/26/24 12:13 10/26/24 13:13 Sod 3.375 gm/ Sodium Chloride IV 10/26/24 12:42 100 mls/hr ONCE ONE Administration Vancomycin/PEG/NADA/Lysine/Water 1.25 gm in 250 mls @ 125 mls/hr 10/26/24 12:30 10/26/24 14:30 Vancomycin 1.25gm/250ml (Peg) Premix IV 10/26/24 14:29 125 mls/hr ONCE ONE Administration Lactated Ringer's 1,000 mls @ 999 mls/hr 10/26/24 14:05 10/26/24 14:11 Lactated Ringer's 1000 Ml Bag IV 10/26/24 15:05 999 mls/hr .Q1H1M ONE Administration Iopamidol 80 ml 10/26/24 13:24 10/26/24 13:25 Iopamidol-370 (76%);100ml Bottle IV 10/26/24 13:25 80 ml ONCE ONE Administration Miscellaneous 1 each 10/26/24 12:15 10/26/24 13:14 Vancomycin Consult Request NOTAPPLIC 11/25/24 12:14 1 each CONSULT PHARMACY CECE Administration Sodium Chloride 10 ml 10/26/24 13:24 10/26/24 13:25 Sodium Chloride 0.9% 10ml Syr (Rad Only) IV 10/26/24 13:25 10 ml ONCE ONE Administration Sodium Chloride 50 ml 10/26/24 13:24 10/26/24 13:25 0.9 % Sodium Chloride 50 Ml Vial IV 10/26/24 13:25 50 ml ONCE ONE Administration ORDERS Category Date Time Status CT abdomen pelvis w con Stat Cat Scan 10/26/24 12:[address] angio chest PE protocol Stat Cat Scan 10/26/24 12:[address] head/brain wo con Stat Cat Scan 10/26/24 11:40 Completed CXR --portable [XR chest portable] Stat Exams 10/26/24 11:40 Completed Ammonia Stat Lab 10/26/24 13:10 Completed BNP [NT Pro Brain Natriuretic Pep.] Stat Lab 10/26/24 11:50 Completed CBC w/Auto Diff [Complete Blood Count Auto Diff] Stat Lab 10/26/24 11:50 Completed CMP [Comprehensive Metabolic Panel] Stat Lab 10/26/24 11:50 Completed D-Dimer Stat Lab 10/26/24 11:50 Completed MAG [Magnesium] Stat Lab 10/26/24 11:50 Completed PT INR [Prothrombin Time INR] Stat Lab 10/26/24 11:50 Completed PTT [Activated Partial Thrombo Time] Stat Lab 10/26/24 11:50 Completed T4 (Thyroxine) Stat Lab 10/26/24 11:50 Completed TSH [Thyroid Stimulating Hormone] Stat Lab 10/26/24 11:50 Completed Trop I [Troponin I] Stat Lab 10/26/24 11:50 Completed Troponin I Q3H Lab 10/26/24 14:37 Completed Troponin I Q3H Lab 10/26/24 17:45 Ordered UA [Urinalysis and Microscopic] Stat Lab 10/26/24 12:13 Ordered Blood Culture Stat Micro 10/26/24 13:10 Received Urine Culture Stat Micro 10/26/24 12:13 Ordered VBG [Venous Blood Gas] Stat RT 10/26/24 11:40 Completed ECG Data Tracing #1: I reviewed this ECG and interpreted as documented below: Sinus tachycardia with a ventricular of [address] changes concerning for STEMI. Right axis deviation, right bundle branch block. ECG initial impression date: 10/26/24 ECG initial impression time: 11:42 Medical Decision Narrative: In summary, this patient is a 89-year-old man presenting to the Emergency Department for evaluation of lethargy in the setting of recent COVID-19 diagnosis. Differential diagnoses considered include but are not limited to sepsis, pneumonia, progressive functional decline, CVA, CO2 narcosis, urinary tract infection, CHF exacerbation. Ruling out the most morbid conditions drove assessment. It should be noted patient's history includes dementia, heart failure which likely are not at goal therapy. This complicates all aspects of care by increasing patient's risk for morbidity. I reviewed patient's past medical records and noted previous admission for failure to thrive in September as detailed in HPI. Also noted the patient's history of hip fracture back in July, which was initially why he was placed in nursing facility.. On exam, the patient is lying in bed, GCS 8, febrile tachycardic. He is ill-appearing. He has had a very slow progressive functional decline that has acutely worsened over the last week. I had very long discussion with his , as I recommended based on his severely depressed mental status that he would likely be a severe aspiration risk, and typically we mitigate this by intubating the patient. She stated she is not sure if she would want him put on the ventilator, she believes that she would not but she would have to discuss this with his children. I also further asked about CODE STATUS, and she stated that she is not sure. She does not think that she would want CPR, but she also needs to discuss this with his children first. Workup included broad lab evaluation to evaluate for infectious, metabolic, cardiac causes as well as CT head without contrast, CT angiogram of the chest, CT abdomen and pelvis with IV contrast. Blood cultures and urine culture sent. Patient was given a 500 cc bolus of IV fluids, but he was not given sepsis bolus because he has a history of heart failure. Will assess his responsiveness and make sure we do not volume overload him slowly. I also ordered vancomycin and Zosyn for empiric broad-spectrum antibiotic coverage in the setting of sepsis. On reassessment, patient briefly became hypotensive and also had respiratory depression with periods of apnea. He did desaturate with these. I put the patient on supplemental oxygen and advised family intubation would likely be indicated to prevent further respiratory decline.. I again discussed with family CODE STATUS and patient's likely overall poor prognosis.. They would like to pick the patient DNR/DNI according to and daughter at bedside. Magnet was placed on the patient's defibrillator, as they stated that they would not want him shocked because they felt it would be critical. They would still like to pursue IV fluids, IV antibiotics to treat infections. I independently interpreted CT scan of the head, chest, abdomen, pelvis prior to the radiologist read and noted no intracranial hemorrhage; patient does have findings concerning for pneumonia; patient still has contrast within his colon with fecal impaction/stercoral colitis. Please see their read for final interpretation. Labs were obtained that demonstrated leukocytosis. D-dimer significant elevated, but no PE noted on CT scan. Blood gas demonstrates an elevated lactic acid consistent with sepsis. He looks dry with elevated anion gap and BUN. He responded well initially to the 500 cc bolus of IV fluids, improving his perfusion and hypotension. He had slight increase in activity with this with a little bit more groaning. I then administered an additional liter bolus of IV fluids. I offered disimpaction or enema for stercoral colitis and fecal impaction, but family would like to leave them alone and let him rest at this time and avoid potentially causing him any sort of discomfort. Ultimately, I feel the patient would benefit from admission for continued management. I then had an interactive discussion with the hospitalist who admitted the patient. Critical Care Critical Care Time Critical Care Time: Yes Attestation: On 10/26/24, the high probability of a clinically significant, sudden or life threatening deterioration of the following system(s) required my full and direct attention, intervention and personal management. The time I documented below is in addition to time spent performing reported procedures but includes the following listed in this critical care notation. Total Time Total Critical Care Time: 45
[2024-10-26] MEDS: PIPERACILLIN/TAZO 3.375 GM in 0.9 % SODIUM CHLORIDE 50 ML IV (13:13)
[2024-10-26] MEDS: VANCOMYCIN CONSULT REQUEST 1 EACH NOTAPPLIC (13:14)
[2024-10-26] MEDS: SODIUM CHLORIDE 0.9% 10ML SYR (RAD ONLY) 10 ML IV (13:25)
[2024-10-26] MEDS: IOPAMIDOL-370 (76%);100ML BOTTLE 80 ML IV (13:25)
[2024-10-26] MEDS: 0.9 % SODIUM CHLORIDE 50 ML VIAL IV (13:25)
[2024-10-26 13:37] LABS: Ammonia < 9 umol/L (9-30)
[2024-10-26] MEDS: LACTATED RINGERS 1000ML 1,000 ML 999 ML IV (14:11)
--- NOTE | 2024-10-26 14:11 | PC.NURSE ---
Magnet applied to patient's pacemaker/defib per family request. DNR/DNI signed and witness by Dr. Powers.
--- NOTE | 2024-10-26 14:20 | PC.NURSE ---
Family at bedside.
[2024-10-26] MEDS: VANCOMYCIN/WATER FOR INJ (PEG) 1.25 GM/250 ML PIGGYBACK IV (14:30)
[2024-10-26 15:14] LABS: Troponin I 0.02 ng/ml (0.00-0.034)
--- NOTE | 2024-10-26 15:33 | PC.NURSE ---
ROUNDED ON THE PT. THE PT VOICES THAT HE DOES NOT NEED ANYTHING AT THIS TIME. CALL LIGHT IS WITHIN REACH OF THE PT.
[2024-10-26 16:01] LABS: Reflex Lactic Add Lactic Reflex
--- NOTE | 2024-10-26 16:13 | PC.NURSE ---
Report called to Dereje Gomez RN.
[2024-10-26 16:37] LABS: Lactic Acid Follow Up (RFLX 1) 1.1 mmol/L (0.7-2.1)
--- NOTE | 2024-10-26 17:53 | PC.NURSE ---
PT TX TO M/S AT THIS TIME VIA STRETCHER
--- NOTE | 2024-10-26 18:01 | PC.NURSE ---
report given to QUINCY SMYTH
--- NOTE | 2024-10-26 18:38 | EXP.HP ---
History of Present Illness *Admission Date: 10/26/24 *Reason for visit:: Shortness of breath, altered mentation *History of present illness: Rah Floyd is a 89-year-old male with a medical history of left hip fracture s/p hemiarthroplasty in June 2024, dementia, HFpEF, hypertension, mood disorder, GERD, overactive bladder who presents with altered mentation and [place]ness [place] [facility] [place] all history at bedside and as patient is currently somnolent. She states patient tested positive for COVID-19 at the facility and his mentation has been waxing and waning over the past few days, and has developed shortness of breath. Unfortunately, patient has continued to decline over the past year and especially after his left hip surgery in June. He has been in and out of fci facilities for progressive functional and cognitive decline. is aware of this, and ultimately wants patient to be comfortable. Workup in the ED significant for WBC 19, AGAP 17, with CTA chest revealing bibasilar pneumonia with possible pulmonary edema. Given this findings and functional decline, ED discussed CODE STATUS with who decided to make patient DNR/DNI. A magnet was also placed over patient's ICD at the 's wishes. Case discussed with ED provider and decision was made to admit patient for sepsis secondary to community-acquired pneumonia. [facility] Disclaimer: The information contained in this section may have been updated after the patient was seen, as this information can be updated by other users. Medical History Closed left hip fracture Renal failure Pyuria Generalized weakness Hernia Chronic heart failure with preserved ejection fraction (HFpEF) Aortic valve disease Cardiac defibrillator in place Hypertension Surgical History History of biopsy of bladder Aortic valve replaced AICD (automatic cardioverter/defibrillator) present History of appendectomy Amputation finger Family History Mother Coronary artery disease Heart attack Father Dementia Other Family history of hypertension Social History Smoking Status: Never smoker alcohol intake: never substance use type: denies use current occupational status: retired and other Travel in the last 8 weeks: None Have you lived/traveled outside US in past 30 days?: No Contact w/someone who lives/traveled outside US past 30 days?: No Exposure to someone with infectious disease in past 14 days?: No Do you have a fever (greater than 100.4 F or 38 C)?: No Have you tested positive for COVID-19: Yes Exposed to someone with COVID-19 in past 14 days?: Yes Do you have a sore throat?: No Do you have a cough?: No Do you have any weakness?: Yes Do you have any diarrhea?: No Are you experiencing any unusual bleeding?: No Do you have any muscle aches/pain?: No Do you have any abdominal pain?: No Are you experiencing loss of taste or smell?: No Other Medical History Have you received the Flu Vaccine for this season: Yes Have you received the Pneumonia Vaccine: Yes Meds Home Medications and Allergies Home Medications ?Medication ?Instructions ?Recorded ?Confirmed ?Type aspirin 81 mg chewable tablet 81 mg PO DAILY 30 days #30 tabs 10/07/24 10/26/24 Rx donepezil 5 mg tablet 5 mg PO HS 30 days #30 tabs 10/07/24 10/26/24 Rx famotidine 20 mg tablet (Pepcid) 20 mg PO DAILY 30 days #30 tabs 10/07/24 10/26/24 Rx furosemide 20 mg tablet (Lasix) 20 mg PO DAILYP PRN Edema 30 days 10/07/24 10/26/24 Rx #30 tabs loratadine 10 mg tablet (Claritin) 10 mg PO DAILY 30 days #30 tabs 10/07/24 10/26/24 Rx memantine 5 mg tablet 5 mg PO HS 30 days #30 tabs 10/07/24 10/26/24 Rx metoprolol succinate 50 mg 50 mg PO DAILY 30 days #30 tabs 10/07/24 10/26/24 Rx tablet,extended release 24 hr (Toprol XL) oxybutynin chloride 10 mg 10 mg PO DAILY 30 days #30 tabs 10/07/24 10/26/24 Rx tablet,extended release 24 hr polyethylene glycol 3350 17 gram 17 g PO DAILY PRN Constipation 30 10/07/24 10/26/24 Rx oral powder packet (HealthyLax) days #30 ea risperidone 1 mg tablet 1 mg PO BID 30 days #60 tabs 10/07/24 10/26/24 Rx risperidone 2 mg tablet 2 mg PO HS 30 days #30 tabs 10/07/24 10/26/24 Rx sertraline 25 mg tablet (Zoloft) 25 mg PO HS 30 days #30 tabs 10/07/24 10/26/24 Rx spironolactone 25 mg tablet 25 mg PO DAILY 10/26/24 10/26/24 History New Prescriptions to Start Prescriptions: Allergies Allergy/AdvReac Type Severity Reaction Status Date / Time ibuprofen Allergy Hives Verified 10/26/24 12:21 Sulfa (Sulfonamide Allergy Hives Verified 10/26/24 12:21 Antibiotics) Exam Data for Last 24 hours Vital signs and Labs for Last 24 Hours: Temp Pulse Resp BP Pulse Ox O2 Del Method O2 Flow Rate 98.2 F 107 H 9 L 78/54 L 96 Nasal Cannula 3 10/26/24 16:11 10/26/24 17:58 10/26/24 17:58 10/26/24 17:58 10/26/24 17:58 10/26/24 17:58 10/26/24 17:58 Laboratory Results - last 24 hr 10/26/24 11:40: VBG pH 7.43 H, VBG pCO2 33.9 L, VBG pO2 60.0 H, VBG HCO3 21.8 L, VBG Total CO2 22.9 L, VBG O2 Saturation 91.5 H, VBG Base Excess -2.5 L, VBG Lactic Acid 2.4 H 10/26/24 11:50: WBC 19.0 H, RBC 4.30 L, Hgb 13.2 L, Hct 41.7 L, MCV 97.0 H, MCH 30.7, MCHC 31.7 L, RDW 13.2, Plt Count 292, MPV 9.5, Neut % (Auto) 83.5 H, Lymph % (Auto) 2.8 L, [place] % (Auto) 12.6 H, Eos % (Auto) 0.1, Baso % (Auto) 0.3, Neut # (Auto) 15.9 H, Lymph # (Auto) 0.5 L, [place] # (Auto) 2.4 H, Eos # (Auto) 0.0, Baso # (Auto) 0.1, Total Counted 100, Neutrophils % (Manual) 80 H, Band Neutrophils % 2.0, Lymphocytes % (Manual) 8 L, Monocytes % (Manual) 9, Eosinophils % (Manual) 1, Platelet Estimate Normal, RBC Morphology Normal, PT 12.1, INR 1.09, APTT 26.5, D-Dimer > 8.10 H, Sodium 143, Potassium 5.0, Chloride 104, Carbon Dioxide 27, Anion Gap 17.0 H, BUN 34 H, Creatinine 1.20, Estimated Creat Clear 37, Estimated GFR 57 L, Est GFR ( Amer) 69, Glucose 143 H, Calcium 9.4, Magnesium 2.1, Total Bilirubin 0.6, AST 31, ALT 17, Alkaline Phosphatase 115, Troponin I 0.02, NT-Pro-B Natriuret Pep 822 H, Total Protein 7.7 D, Albumin 3.9, Globulin 3.8 H, Albumin/Globulin Ratio 1.0 L, TSH 5.91 H, Thyroxine (T4) 8.0 10/26/24 13:10: Ammonia < 9 L 10/26/24 14:37: Troponin I 0.02 10/26/24 16:15: Lactate 1.1 I & O for Last 24 hours: Intake & Output 10/23/24 10/24/24 10/25/24 10/26/24 23:59 23:59 23:59 23:59 Weight 56.784 kg Constitutional Constitutional: no acute distress and cachectic Comments: Somnolent, arousable to deep sternal rub. *Routine HEENT Exam Head: Present normocephalic Eye: Present EOMI and PERRL ENT: Present mucous membranes moist *Routine Neck Exam Neck: Present supple; Absent lymphadenopathy *Routine Respiratory Exam Respiratory: Present CTA bilaterally *Routine Cardiovascular Exam Cardiovascular: Present RRR *Routine Abdominal Exam Abdominal: Present soft and normoactive bowel sounds; Absent tenderness *Routine Rectal Exam Rectal:: deferred *Routine Genitalia Exam Genitalia:: deferred *Routine Extremities Exam Extremities: Absent cyanosis, clubbing or edema *Routine Skin Exam Skin: Present warm; Absent rash *Routine Neurological Exam Neurological: Present alert Assessment and Plan *Assessment and plan (1) Sepsis due to pneumonia: Status: Acute Category: Medical Code(s): J18.9 - Pneumonia, unspecified organism; A41.9 - Sepsis, unspecified organism Plan Rah Floyd is a 89-year-old male with a medical history of left hip fracture s/p hemiarthroplasty in June 2024, dementia, HFpEF, hypertension, mood disorder, GERD, overactive bladder who presents with altered mentation and shortness of breath [place] [facility] [place] all history at bedside and as patient is currently somnolent. She states patient tested positive for COVID-19 at the facility and his mentation has been waxing and waning over the past few days, and has developed shortness of breath. Unfortunately, patient has continued to decline over the past year and especially after his left hip surgery in June. He has been in and out of fci facilities for progressive functional and cognitive decline. is aware of this, and ultimately wants patient to be comfortable. Workup in the ED significant for WBC 19, AGAP 17, with CTA chest revealing bibasilar pneumonia with possible pulmonary edema. Given this findings and functional decline, ED discussed CODE STATUS with who decided to make patient DNR/DNI. A magnet was also placed over patient's ICD at the 's wishes. Case discussed with ED provider and decision was made to admit patient for sepsis secondary to community-acquired pneumonia. #Sepsis #Acute hypoxic respiratory failure #Community-acquired pneumonia #Acute metabolic encephalopathy #COVID-19 ? Presents with altered mentation, shortness of breath. ? CT reveals bibasilar pneumonia, WBC 19, with tachycardia up to 123. ? Per 's wishes that are in reflection with the patient's, she does not want aggressive measures to treat patient's condition. At this time, she wants only basic antibiotics. No pressors or other advanced resuscitation measures. Not ready to make full comfort care. ? Ceftriaxone, doxycycline day 1/5. ? Consider remdesivir, Decadron pending respiratory panel. ? Follow-up blood cultures. ? Ultimately, does want patient to be comfortable and will likely hospice care pending patient's response to current treatment. #HFpEF ? Currently stable. Hold diuretics in the setting of sepsis. #Hypertension ? Hold BP meds in the setting of sepsis. #Dementia ? Continue donepezil, memantine. #Mood disorder ? Hold risperidone, sertraline in the setting of encephalopathy. DNR/DNI Lovenox 40 mg
[2024-10-26] MEDS: LACTATED RINGERS 1000ML 1,000 ML 75 ML IV (20:08)
[2024-10-26] MEDS: DOXYCYCLINE HYCLATE 100 MG in 0.9 % SODIUM CHLORIDE 250 ML 166.667 MG IV (20:08)
--- NOTE | 2024-10-26 20:40 | PC.NURSE ---
Family refused resp panel and to obtain urine for UA. Provider notified
[2024-10-26] MEDS: LORazepam 2MG/ML VIAL 0.5 MG IV (21:57)
[2024-10-27] VITALS (10 sets, daily range): BP systolic 88–93; BP diastolic 49–54; PULSE 100–159; RESP 14–36; TEMP 37.2–38.9; O2SAT 82–97
[2024-10-27] MEDS: MORPHINE 2MG/ML SYRINGE 2 MG IV ×2 (01:00→11:58)
[2024-10-27] MEDS: LORazepam 2MG/ML VIAL 0.5 MG IV ×2 (05:19→11:58)
--- NOTE | 2024-10-27 05:58 | PC.NURSE ---
Pt responsive only at times throughout shift. IVF and IV antibiotics started. Family refuses UA and resp panel. During the night, pt began to have some gurgling. Pt repositioned for comfort and at that time, family opted to stop IVF. Large family presence at the beginning of shift, asking a lot of questions regarding pt status, comfort, treatments including reasons for antibiotics and fluids. After family left, and daughter remain at pts bedside. They inform financial writer that they have decided they would like to speak to Hospice later today and focus solely on comfort care. During this shift, pt has been medicated with Ativan X 2 doses and Morphine X 1 dose to maintain comfort.
[2024-10-27 06:58] LABS: Basophils # 0.1 K/mm3 (0-0.2); Basophils % 0.6 % (0.1-2.0); Eosinophils # 0.2 K/mm3 (0.0-0.4); Eosinophils % 1.6 % (0.1-12.0); Hematocrit 39.8 % (42.0-52.0); Hemoglobin 12.4 g/dL (14.1-18.0); Lymphocytes # 0.5 K/mm3 (0.7-4.5); Lymphocytes % 3.8 % (10-50); Mean Corpuscular HGB Conc 31.2 g/dL (31.8-35.4); Mean Corpuscular Hemoglobin 30.3 pg (27.0-31.2); Mean Corpuscular Volume 97.3 fl (80-94); Mean Platelet Volume 10.1 fl (7.4-10.4); Monocytes # 1.5 K/mm3 (0.1-1.0); Monocytes % 10.7 % (1.7-9.3); Neutrophils # 11.7 K/mm3 (1.8-7.8); Neutrophils % 82.9 % (37.0-80.0); Platelet Count 275 K/mm3 (142-424); Red Blood Count 4.09 M/mm3 (4.60-6.20); Red Cell Distribution Width 13.2 % (11.5-17.5); White Blood Count 14.1 K/mm3 (4.8-10.8)
[2024-10-27 07:27] LABS: Albumin Level 3.5 g/dl (3.5-5.0); Chloride 107 mmol/L (98-107)
[2024-10-27 07:28] LABS: Potassium 4.4 mmoL/L (3.5-5.1); Sodium 144 mmol/L (136-145)
[2024-10-27 07:30] LABS: Alanine Aminotransferase 17 U/L (12-78); Anion Gap 13.4 mEq/L (5-15); Aspartate Amino Transferase 30 U/L (17-59); Blood Urea Nitrogen 32 mg/dl (9-20); Carbon Dioxide 28 mmol/L (22.0-30.0); Creatinine Clearance Estimated 38 mL/min (50-200); Estimated Glomerular Filt Rate 63 ml/min (>60); GFR (African American) 76 ML/MIN (>60); Globulin 3.6 g/dL (1.3-3.2); Total Protein,Serum 7.1 g/dl (6.3-8.2)
[2024-10-27 07:31] LABS: Alkaline Phosphatase 76 U/L (38-126); Bilirubin,Total 0.4 mg/dl (0.2-1.3); Calcium 9.1 mg/dl (8.4-10.2); Glucose 84 mg/dl (74-100); Magnesium 2.1 mg/dl (1.6-2.3)
--- NOTE | 2024-10-27 08:17 | SW/DCPLANNER ---
Addendum entered by Anne-Marie Steinberg 10/27/24 13:02: Deepthi shipley/ Hospice evaluated patient at bedside and recommended Hospice Inpatient. Patient will transition to inpatient Hospice today. Addendum entered by Anne-Marie Steinberg 10/27/24 10:46: Hospice will be at bedside to evaluate patient and speak w/ family at 12PM. Addendum entered by Anne-Marie Steinberg 10/27/24 09:03: Patient's family has expressed an interest in Hospice Care. Patient information has been faxed to Xiomara shipley/ [facility]. I will follow up w/ patient, family and BCN once information is reviewed. Original Note: Prior to hospital admission patient was at [facility] level of care. I will continue to update Maya shipley/ Shoaib Cook during patient's hospital admission. Discharge date is unknown at this time.
--- NOTE | 2024-10-27 08:23 | HMH.PHAINT1 ---
Pharmacy Intervention Comments: Home medication list verified using list from outpatient pharmacy an pt interview
--- NOTE | 2024-10-27 10:28 | HMH.PTWOUND ---
Rehab Inpt Wound Evaluation Rehab IP Wound Evaluation Start: 10/26/24 18:32 Freq: ONCE Status: Active Protocol: Document 10/27/24 10:25 GHANSHYAM (Rec: 10/27/24 10:27 GHANSHYAM [id number]) Rehab PT Wound Assessment Subjective Subjective 89-year-old male with a medical history of left hip fracture s/p hemiarthroplasty in June 2024, dementia, HFpEF, hypertension, mood disorder, GERD, overactive bladder who presents with altered mentation and shortness of breath [place] [facility] [place]. Pt presents with redness of the skin to the sacrum upon admission. Wound Sacrum Wound Type Pressure Ulcer Is This a Chronic Wound Yes Wound Staging Stage I Query Text:Stage I - Unbroken, red skin, no blanching. Stage II - Skin broken, superficial skin loss involving epidermis alone or also dermis. Partial loss of skin layers. Stage III - Pressure area involves epidermis, dermis and subcutaneous tissue, full thickness skin loss. Stage IV - Pressure area involves epidermis, subcutaneous tissue, bone and other supportive tissue. Full thickness skin loss with extensive destruction of underlying tissue and structures. Plan/Recommendation Comment [place] [facility] [place] and performing pressure relief as indicated per protocols. No current inpatient therapy wound care needs at this time. Eval Complexity Eval Charge Codes 90590 - High Complexity PHYSICIAN CERTIFICATION: I certify the specified therapy services for Rah Floyd are required, authorized, and reviewed every 30 days.
--- NOTE | 2024-10-27 10:35 | PC.NURSE ---
Family refused sputum induction at this time stated they are currently waiting for hospice consult.
[2024-10-27] MEDS: GLYCOPYRROLATE 0.2 MG/ML 1ML VIAL IV (11:06)
--- NOTE | 2024-10-27 12:06 | PC.NURSE ---
hospice nurse @ bedside
--- NOTE | 2024-10-27 14:22 | EXP.PN ---
Subjective *Date: 10/27/24 *Time: 14:22 Interval history: Patient continues to be encephalopathic, with agonal breathing, hypotensive, tachycardic. Family decided to make patient comfort/hospice care. Inpatient hospice care initiated. Exam Data for Last 24 hours Vital signs and Labs for Last 24 Hours: Temp Pulse Resp BP Pulse Ox O2 Del Method O2 Flow Rate 99.0 F 115 H 15 88/49 L 97 Nasal Cannula 2 10/27/24 12:40 10/27/24 08:00 10/27/24 08:00 10/27/24 08:00 10/27/24 08:00 10/27/24 08:00 10/27/24 08:00 Laboratory Results - last 24 hr 10/26/24 14:37: Troponin I 0.02 10/26/24 16:15: Lactate 1.1 10/27/24 05:25: WBC 14.1 H D, RBC 4.09 L, Hgb 12.4 L, Hct 39.8 L, MCV 97.3 H, MCH 30.3, MCHC 31.2 L, RDW 13.2, Plt Count 275, MPV 10.1, Neut % (Auto) 82.9 H, Lymph % (Auto) 3.8 L, [place] % (Auto) 10.7 H, Eos % (Auto) 1.6, Baso % (Auto) 0.6, Neut # (Auto) 11.7 H, Lymph # (Auto) 0.5 L, [place] # (Auto) 1.5 H, Eos # (Auto) 0.2, Baso # (Auto) 0.1, Sodium 144, Potassium 4.4, Chloride 107, Carbon Dioxide 28, Anion Gap 13.4, BUN 32 H, Creatinine 1.10, Estimated Creat Clear 38, Estimated GFR 63, Est GFR ( Amer) 76, Glucose 84 D, Calcium 9.1, Magnesium 2.1, Total Bilirubin 0.4, AST 30, ALT 17, Alkaline Phosphatase 76, Total Protein 7.1, Albumin 3.5 D, Globulin 3.6 H, Albumin/Globulin Ratio 1.0 L I & O for Last 24 hours: Intake & Output 10/24/24 10/25/24 10/26/24 10/27/24 23:59 23:59 23:59 23:59 Output Total 0 / 0 0 / 0 Balance 0 / 0 0 / 0 Weight 56.784 kg 57.924 kg Microbiology Reports for the Last 24 Hours: Microbiology 10/26/24 13:10 Blood Blood Culture - Preliminary NO GROWTH AFTER 24 HOURS 10/26/24 13:10 Blood Blood Culture - Preliminary NO GROWTH AFTER 24 HOURS Constitutional Constitutional: no acute distress *Routine HEENT Exam Head: Present normocephalic Eye: Present EOMI and PERRL ENT: Present mucous membranes moist *Routine Neck Exam Neck: Present supple; Absent lymphadenopathy *Routine Respiratory Exam Respiratory: Present CTA bilaterally *Routine Cardiovascular Exam Cardiovascular: Present RRR *Routine Abdominal Exam Abdominal: Present soft and normoactive bowel sounds; Absent tenderness *Routine Extremities Exam Extremities: Absent cyanosis, clubbing or edema *Routine Skin Exam Skin: Present warm; Absent rash *Routine Neurological Exam Neurological: Present alert Assessment and Plan *Assessment and plan (1) Sepsis due to pneumonia: Status: Acute Category: Medical Code(s): J18.9 - Pneumonia, unspecified organism; A41.9 - Sepsis, unspecified organism Plan Rah Floyd is a 89-year-old male with a medical history of left hip fracture s/p hemiarthroplasty in June 2024, dementia, HFpEF, hypertension, mood disorder, GERD, overactive bladder who presents with altered mentation and shortness of breath from [facility] [place]. provides all history at bedside and as patient is currently somnolent. She states patient tested positive for COVID-19 at the facility and his mentation has been waxing and waning over the past few days, and has developed shortness of breath. Unfortunately, patient has continued to decline over the past year and especially after his left hip surgery in June. He has been in and out of alf facilities for progressive functional and cognitive decline. is aware of this, and ultimately wants patient to be comfortable. Workup in the ED significant for WBC 19, AGAP 17, with CTA chest revealing bibasilar pneumonia with possible pulmonary edema. Given this findings and functional decline, ED discussed CODE STATUS with who decided to make patient DNR/DNI. A magnet was also placed over patient's ICD at the 's wishes. Case discussed with ED provider and decision was made to admit patient for sepsis secondary to community-acquired pneumonia. #Sepsis #Acute hypoxic respiratory failure #Community-acquired pneumonia #Acute metabolic encephalopathy #COVID-19 #Dementia #Functional, cognitive decline ? Presented with altered mentation, shortness of breath. ? Initial CT revealed bibasilar pneumonia, WBC 19, with tachycardia up to 123. Patient began having agonal breathing in the ED, as a result goals of care conversation were had with the family. ? Per , unfortunately patient has had significant functional and cognitive decline over the past year and has been in and out of nursing homes, indurated left hip fracture a few months ago. In line with patient's previous wishes, elected to pursue hospice/comfort care for patient's deteriorating overall health, especially in the acute setting. Patient at this time is not conversive, and continues to have intermittent agonal breathing. It is very possible patient might of had a stroke. declines further workup with a brain MRI. ? Antibiotics discontinued today. Transitioned to comfort care. ? Patient has been accepted to inpatient hospice care. ? Morphine, Ativan, glycopyrrolate as needed. #HFpEF ? Currently stable. Hold diuretics in the setting of sepsis. #Hypertension ? Hold BP meds in the setting of sepsis. #Dementia ? Continue donepezil, memantine as patient can tolerate. #Mood disorder ? Hold risperidone, sertraline in the setting of encephalopathy. DNR/DNI
[2024-10-27] MEDS: MORPHINE 4MG/ML SYRINGE 4 MG IV ×3 (15:45→20:46)
[2024-10-27] MEDS: ACETAMINOPHEN 1,000MG/100ML VIAL 1000 MG IV (17:51)
--- NOTE | 2024-10-27 18:06 | PC.NURSE ---
patients temperature was 101.4 axillary. removed blankets and covered with only top sheet. IV tylenol given per NOV.
[2024-10-28 00:15] VITALS: RESP 24; TEMP 36.9
[2024-10-28 04:00] VITALS: BMI 19.6
[2024-10-28] MEDS: LORazepam 2MG/ML VIAL 1 MG IV (04:53)
--- NOTE | 2024-10-28 05:44 | PC.NURSE ---
Pt. is on comfort care per Hospice. Pt. has been declining overnight. at start of shift would flutter eye to sound of voice, now unresponsive. Pt. has been comfortable with Morphine and Ativan.. Pt. spiked a fever last night of 102.1 axillary. It was too soon for Tylenol to be given, Blankets removed , ice packs placed to armpits and groin area. Cool clothes to head. Fever did come back down to normal. Family at bedside. Pt. transitioning to slower breathing and having a few pauses. Family given emotional support.
--- NOTE | 2024-10-28 06:07 | PC.NURSE ---
cost control supervisor notified at this time.
--- NOTE | 2024-10-28 06:08 | P.DN_ITS ---
Pronouncement Note Date and Time of Date of : 10/28/24 Time of : 06:05 PCOD Preliminary cause of : Pneumonia Contributing Factors (1) Sepsis due to pneumonia: Summary Additional details: Rah Floyd is a 89-year-old male with a medical history of left hip fracture s/p hemiarthroplasty in June 2024, dementia, HFpEF, hypertension, mood disorder, GERD, overactive bladder who [place]ation [place] [facility] [place] all history at bedside and as patient is currently somnolent. She states patient tested positive for COVID-19 at the facility and his mentation has been waxing and waning over the past few days, and has developed shortness of breath. Unfortunately, patient has continued to decline over the past year and especially after his left hip surgery in June. He has been in and out of jail facilities for progressive functional and cognitive decline. is aware of this, and ultimately wants patient to be comfortable. Workup in the ED significant for WBC 19, AGAP 17, with CTA chest revealing bibasilar pneumonia with possible pulmonary edema. Given this findings and functional decline, ED discussed CODE STATUS with who decided to make patient DNR/DNI. A magnet was also placed over patient's ICD at the 's wishes. Case discussed with ED provider and decision was made to admit patient for sepsis secondary to community-acquired pneumonia. Additional Data Confirmation of : no pulse, no respirations, no heart sounds and pupils fixed and dilated Family: at bedside Attending/PCP notified?: Yes Attending physician: Edwardo Carr MD Autopsy should be considered if:: Unknown or unanticipated medical complications Cause is not known with certainty on clinical grounds Would allay concerns of the public/family regarding Unexplained/unexpected apparently natural and not subject to a forensic medical jurisdiction DOA Within 24 hours of admission Sustained or apparently sustained injury while in the hospital Result of high risk, infectious and contagious disease Obstetric and pediatric arising from environmental or occupational hazard Unexplained/unexpected from dental, medical, or surgical diagnostic procedures and/or therapies Would disclose a known or suspected illness which also may have a bearing on survivors or recipients of transplanted organs Autopsy requested?: No Does not meet criteria
--- NOTE | 2024-10-28 06:09 | PC.NURSE ---
600: Andrea Berry called to bedside about change in pt. status. Pt. had no hearbeat or breathing. Pt. pronounced at 0605.
--- NOTE | 2024-10-28 06:28 | PC.NURSE ---
LATRICE contacted at this time, ruled out, Michell Villalta #[phone]
--- NOTE | 2024-10-28 06:32 | PC.NURSE ---
Contacted hospice answering service to report, stated we would received call back from simulation tech nurse, no call back at this time, repeated call to hospice, stated they would follow up with simulation tech nurse.
--- NOTE | 2024-10-28 06:55 | PC.NURSE ---
Isaura with hospice returned call to take report.
--- NOTE | 2024-10-28 07:55 | PC.NURSE ---
[facility] . Post-mortem care completed at this time.
== END 2024-10-28 08:40 | disposition expired | DRG 871 ==
LOC: ER 15:36 → 2ND 15:48 → ICU 10-27 13:44
PROVIDERS: Admitting Provider Student in an Organized Health Care Education/Training Program; Emergency Provider Emergency Medicine; PCP Nurse Practitioner Family; Visit Provider Student in an Organized Health Care Education/Training Program
DX: A41.9 Sepsis, unspecified organism (principal); G93.41 Metabolic encephalopathy; J18.9 Pneumonia, unspecified organism; J96.01 Acute respiratory failure with hypoxia; I50.32 Chronic diastolic (congestive) heart failure; K21.9 Gastro-esophageal reflux disease without esophagitis; F39 Unspecified mood [affective] disorder; F03.90 Unspecified dementia, unspecified severity, without behavioral disturbance, psychotic disturbance, mood disturbance, and anxiety; I11.0 Hypertensive heart disease with heart failure; Z66 Do not resuscitate; Z95.810 Presence of automatic (implantable) cardiac defibrillator; Z83.2 Family history of diseases of the blood and blood-forming organs and certain disorders involving the immune mechanism; Z81.8 Family history of other mental and behavioral disorders; Z79.82 Long term (current) use of aspirin; Z88.2 Allergy status to sulfonamides; Z88.6 Allergy status to analgesic agent; Z96.642 Presence of left artificial hip joint; Z74.1 Need for assistance with personal care
CPT/HCPCS: 36415; 70450; 71045; 71275; 74177; 80053; 82140; 82803; 83605; 83735; 83880; 84436; 84443; 84484; 85007; 85025; 85378; 85610; 85730; 87040; 93005; 99291; J0131; J1595; J2060; J2270; J2543; J3372; J7120; Q9967